=== PATIENT | female | born 1975 | race Caucasian/White ===

== ENCOUNTER → 2016-05-30 | Outpatient (CLI) | payer OTHER ==
[~2016-05-30] MED LIST: ALPR.5T PO; CYCL10TA45 PO; CYCL10TA9 PO; GBPN100C PO; HYDR-3714 PO; HYDR-757 PO; PRD20T PO; [UNRECOGNIZED DRUG - REMARK]
--- NOTE | 2016-06-01 19:06 | Diagnostic Imaging Report ---
Bilateral screening mammogram The current study was also evaluated with a Computer Aided Detection (CAD) system. Indication: Screening. No current complaints stated on the questionnaire. COMPARISON: 05/20/15. FINDINGS: The breasts are composed of heterogeneously dense parenchyma which may decrease mammographic sensitivity. There is a biopsy clip in the central aspect of the left breast. Allowing for technique and positional differences, no suspicious change is seen. IMPRESSION: Dense breasts with no definite change. ACR BI-RADS Category 2: Benign findings. Result letter will be mailed to the patient. Note: At least 10% of breast cancer is not imaged by mammography. Dictated by: Dictated on workstation # [id number]
== END ==
LOC: RAD 09:31
PROVIDERS: ATTEND Internal Medicine Hematology & Oncology
DX: Z12.31 Encounter for screening mammogram for malignant neoplasm of breast (principal)
CPT/HCPCS: 77067

== ENCOUNTER 2016-06-06 12:55 | Outpatient (RCR) | payer OTHER ==
[2016-06-06 13:09] LABS: BASOPHILS % (AUTO) 1 % (0-10); EOSINOPHILS # (AUTO) 0.3 10^3/uL (0.0-0.3); EOSINOPHILS % (AUTO) 4 % (0-10); LYMPHOCYTES % (AUTO) 26 % (12-44); MEAN CORPUSCULAR HEMOGLOBIN 29 PG (25-34); MEAN CORPUSCULAR HGB CONC 33 G/DL (32-36); MEAN CORPUSCULAR VOLUME 87 FL (80-99); MEAN PLATELET VOLUME 9.2 FL (7.4-10.4); MONOCYTES # (AUTO) 0.8 X 10^3 (0.0-1.0); MONOCYTES % (AUTO) 11 % (0-12); NEUTROPHILS # (AUTO) 4.4 X 10^3 (1.8-7.8); NEUTROPHILS % (AUTO) 58 % (42-75); PLATELET COUNT 324 10^3/uL (130-400); RED BLOOD COUNT 4.19 10^6/uL (4.35-5.85); RED CELL DISTRIBUTION WIDTH 13.4 % (10.0-14.5); WHITE BLOOD COUNT 7.5 10^3/uL (4.3-11.0)
[2016-06-06 13:28] LABS: ALANINE AMINOTRANSFERASE 11 U/L (0-55); ALBUMIN 4.1 G/DL (3.2-4.5); ANION GAP 7 MMOL/L (5-14); ASPARTATE AMINO TRANSFERASE 14 U/L (5-34); BILIRUBIN,TOTAL 0.2 MG/DL (0.1-1.0); BLOOD UREA NITROGEN 13 MG/DL (7-18); BUN/CREATININE RATIO 17; CALCIUM 8.6 MG/DL (8.5-10.1); CARBON DIOXIDE 25 MMOL/L (21-32); CHLORIDE 108 MMOL/L (98-107); CREATININE SERUM 0.77 MG/DL (0.60-1.30); GFR ESTIMATED > 60; GLUCOSE 69 MG/DL (70-105); POTASSIUM 3.9 MMOL/L (3.6-5.0); SODIUM 140 MMOL/L (135-145)
== END 2016-09-04 | disposition home or self-care (01) ==
LOC: ONC 12:55
PROVIDERS: ATTEND Internal Medicine Hematology & Oncology
DX: C84.60 Anaplastic large cell lymphoma, ALK-positive, unspecified site (principal); N60.41 Mammary duct ectasia of right breast; G56.90 Unspecified mononeuropathy of unspecified upper limb; F17.210 Nicotine dependence, cigarettes, uncomplicated; M54.2 Cervicalgia; Z80.3 Family history of malignant neoplasm of breast; Z92.3 Personal history of irradiation; Z79.899 Other long term (current) drug therapy
CPT/HCPCS: 36415; 80053; 85025; 86300; 99213

== ENCOUNTER 2016-11-28 08:35 | Outpatient (RCR) | payer OTHER | END 2016-12-02 | disposition home or self-care (01) | PROVIDERS: ATTEND Nurse Practitioner Community Health | DX: M54.16 Radiculopathy, lumbar region (principal) ==

== ENCOUNTER → 2017-06-06 | Outpatient (CLI) | payer OTHER ==
--- NOTE | 2017-06-07 20:58 | Diagnostic Imaging Report ---
INDICATION: Hyperplasia of left breast. At this time there are no current complaints. EXAMINATION: Bilateral breast digital diagnostic mammogram with CAD. The current study was also evaluated with a Computer Aided Detection (CAD) system. COMPARISON: This study was compared to prior exams of 05/30/2016, 05/20/2015 and 05/18/2014. FINDINGS: The fibroglandular tissue in both breasts is heterogeneously dense. This does limit the sensitivity of this exam. Overall, there does not appear to have been any significant change when compared to the prior study. No primary or secondary sign of malignancy is noted. The stereotactic clip in the left breast, seen previously, is again evident. IMPRESSION: There is no radiographic evidence for malignancy. ACR BI-RADS Category 1: Negative. Result letter will be mailed to the patient. Note: At least 10% of breast cancer is not imaged by mammography. Dictated by: Dictated on workstation # [id number]
== END ==
LOC: RAD 13:03
PROVIDERS: ATTEND Internal Medicine Hematology & Oncology
DX: Z12.31 Encounter for screening mammogram for malignant neoplasm of breast (principal); N60.91 Unspecified benign mammary dysplasia of right breast
CPT/HCPCS: 77066

== ENCOUNTER → 2017-06-18 | Outpatient (CLI) | payer SELFPAY ==
--- NOTE | 2017-06-18 15:17 | Diagnostic Imaging Report ---
INDICATION: Thyroid nodule. COMPARISON: 12/24/2015. TECHNIQUE: Multiple Real-time grayscale images were obtained over the thyroid in various projections bilaterally. FINDINGS: The right lobe of the thyroid measures 3.6 x 1.4 x 1.5 cm. The left lobe measures 4.7 x 1.1 x 1.2 cm. There is a small hypoechoic nodule measuring 0.6 x 0.5 cm which is unchanged compared to the prior examination. No other discrete solid or cystic thyroid nodules are appreciated. IMPRESSION: Stable 6 mm hypoechoic nodule in the left lobe of the thyroid, likely a small adenoma. Dictated by: Dictated on workstation # [id number]
== END ==
LOC: RAD 13:58
PROVIDERS: ATTEND Physician Assistant
DX: E04.1 Nontoxic single thyroid nodule (principal)
CPT/HCPCS: 76536

== ENCOUNTER 2017-08-20 13:05 | Outpatient (RCR) | payer SELFPAY ==
[2017-06-07 13:52] LABS: BASOPHILS % (AUTO) 1 % (0-10); EOSINOPHILS # (AUTO) 0.3 10^3/uL (0.0-0.3); EOSINOPHILS % (AUTO) 4 % (0-10); HEMATOCRIT 35 % (35-52); HEMOGLOBIN 11.4 G/DL (11.5-16.0); LYMPHOCYTES % (AUTO) 27 % (12-44); MEAN CORPUSCULAR HEMOGLOBIN 28 PG (25-34); MEAN CORPUSCULAR HGB CONC 33 G/DL (32-36); MEAN CORPUSCULAR VOLUME 84 FL (80-99); MONOCYTES % (AUTO) 14 % (0-12); NEUTROPHILS # (AUTO) 3.9 X 10^3 (1.8-7.8); NEUTROPHILS % (AUTO) 54 % (42-75); PLATELET COUNT 323 10^3/uL (130-400); RED BLOOD COUNT 4.11 10^6/uL (4.35-5.85); RED CELL DISTRIBUTION WIDTH 14.9 % (10.0-14.5); WHITE BLOOD COUNT 7.3 10^3/uL (4.3-11.0)
[2017-06-07 14:12] LABS: ALANINE AMINOTRANSFERASE 32 U/L (0-55); ALBUMIN 4.1 GM/DL (3.2-4.5); ALKALINE PHOSPHATASE 49 U/L (40-136); BILIRUBIN,TOTAL 0.3 MG/DL (0.1-1.0); BUN/CREATININE RATIO 19; CALCIUM 8.8 MG/DL (8.5-10.1); CARBON DIOXIDE 24 MMOL/L (21-32); CHLORIDE 108 MMOL/L (98-107); GFR ESTIMATED > 60; GLUCOSE 78 MG/DL (70-105); SODIUM 140 MMOL/L (135-145); TOTAL PROTEIN 6.9 GM/DL (6.4-8.2)
[2017-08-20 13:41] LABS: BASOPHILS # (AUTO) 0.1 10^3/uL (0.0-0.1); BASOPHILS % (AUTO) 1 % (0-10); EOSINOPHILS # (AUTO) 0.6 10^3/uL (0.0-0.3); EOSINOPHILS % (AUTO) 8 % (0-10); HEMATOCRIT 37 % (35-52); HEMOGLOBIN 12.9 G/DL (11.5-16.0); LYMPHOCYTES % (AUTO) 28 % (12-44); MEAN CORPUSCULAR HEMOGLOBIN 31 PG (25-34); MEAN CORPUSCULAR HGB CONC 35 G/DL (32-36); MEAN CORPUSCULAR VOLUME 87 FL (80-99); MEAN PLATELET VOLUME 9.3 FL (7.4-10.4); MONOCYTES # (AUTO) 0.8 X 10^3 (0.0-1.0); MONOCYTES % (AUTO) 11 % (0-12); NEUTROPHILS # (AUTO) 3.7 X 10^3 (1.8-7.8); NEUTROPHILS % (AUTO) 52 % (42-75); PLATELET COUNT 298 10^3/uL (130-400); RED BLOOD COUNT 4.23 10^6/uL (4.35-5.85); RED CELL DISTRIBUTION WIDTH 14.5 % (10.0-14.5); WHITE BLOOD COUNT 7.2 10^3/uL (4.3-11.0)
[2017-08-20 14:04] LABS: BUN/CREATININE RATIO 16; CARBON DIOXIDE 23 MMOL/L (21-32); CHLORIDE 109 MMOL/L (98-107); CREATININE SERUM 0.77 MG/DL (0.60-1.30); GFR ESTIMATED > 60; GLUCOSE 96 MG/DL (70-105); SODIUM 141 MMOL/L (135-145)
== END 2017-08-23 10:22 | disposition home or self-care (01) ==
LOC: ONC 13:05
PROVIDERS: ATTEND Internal Medicine Hematology & Oncology
DX: C84.60 Anaplastic large cell lymphoma, ALK-positive, unspecified site (principal); D64.9 Anemia, unspecified; N60.41 Mammary duct ectasia of right breast; G56.90 Unspecified mononeuropathy of unspecified upper limb; F17.210 Nicotine dependence, cigarettes, uncomplicated; M54.2 Cervicalgia; Z80.3 Family history of malignant neoplasm of breast; Z92.3 Personal history of irradiation; Z79.899 Other long term (current) drug therapy
CPT/HCPCS: 36415; 80048; 80053; 82728; 83540; 85025; 86300; 99213

== ENCOUNTER 2018-01-15 17:02 | Emergency (ER) | payer OTHER ==
[~2018-01-15] VITALS: Ht 162.6 cm; Wt 58.1 kg
--- OUTSIDE RECORDS SUMMARY | 2018-01-15 17:07 | XMS REPORT | Clinical Summary ---
Author Author [facility] Organization [facility] Address Unknown Phone Unavailable Care Team Providers Care Supervisor [employer] Name Role Phone Lizzette, [facility] PCP Source Comments Some departments are not documenting in the electronic medical record. If you do not see the information that you expected, contact Release of Information in the Health Information Management department at [phone] for further assistance in locating additional records.[facility] Allergies No Known Allergies Current Medications Prescription Sig. Disp. Refills Start End Date Status Date ALPRAZolam (XANAX) 1 mg Take 1 mg by mouth at Active tablet bedtime as needed for Anxiety. buPROPion SR(+) Take 350 mg by mouth Active (WELLBUTRIN-SR) 150 mg twice daily. tablet MULTIVITAMINS WITH Take by mouth daily. Active FLUORIDE (MULTI-VITAMIN PO) HYDROcodone/acetaminophen Take 1 Tab by mouth every Active (NORCO) 7.5/325 mg tablet 6 hours as needed for Pain Active Problems Not on file Family History Medical History Relation Name Comments Other Father suicide Cancer Mother Other Mother Pulmonary Embolism Relation Name Status Comments Father Mother Social History Tobacco Use Types Packs/Day Years Used Date Current Some Day Smoker Comments: 1 pack per week Alcohol Use Drinks/Week oz/Week Comments Yes 1 Standard 0.6 rarely drinks or equivalent Sex Assigned at Date Recorded Not on file Last Filed Vital Signs Vital Sign Reading Time Taken Blood Pressure 122/73 07/18/2016 4:00 PM CDT Pulse 66 07/18/2016 4:00 PM CDT Temperature 36.5 C (97.7 F) 07/18/2016 1:10 PM CDT Respiratory Rate - - Oxygen Saturation 99% 07/18/2016 4:00 PM CDT Inhaled Oxygen - - Concentration Weight 63 kg (139 lb) 02/22/2016 2:16 PM [facility] Height 162.6 cm (5' 4") 02/22/2016 2:16 PM [facility] Body Mass Index 23.86 02/22/2016 2:16 PM [facility] Plan of Treatment Health Maintenance Due Date Last Done Comments PHYSICAL (COMPREHENSIVE) 1981 EXAM PERTUSSIS VACCINE 1985 HIV SCREENING 1989 TETANUS VACCINE 06/04/1991 CERVICAL CANCER SCREENING 2004 BREAST CANCER SCREENING 2014 INFLUENZA VACCINE 10/03/2017 Results Not on filefrom Last 3 Months
--- OUTSIDE RECORDS SUMMARY | 2018-01-15 17:08 | XMS REPORT ---
Author Author MARTIN GUERRERO Organization [facility] Address [address] [place] [address] Care Team Providers Care Home Aid Name Role Phone MARTIN GUERRERO Unavailable PROBLEMS Type Condition ICD9-CM Code [id number] Code Onset Dates Condition Status SNOMED Code Problem Carpal tunnel syndrome G56.00 Active 16640882 Problem Other inflammatory polyneuropathies G61.89 Active 257531662 Problem Acquired hypothyroidism E03.9 Active 559420444 Problem Malignant lymphoma of lymph nodes C85.90 Active 128779653 Problem Other hyperlipidemia E78.4 Active 80519712 Problem Thyroid nodule E04.1 Active 007354586 Problem Endometrial hyperplasia N85.00 Active 330712537 Problem Low back pain M54.5 Active 837041278 Problem Lumbago with sciatica, left side M54.42 Active 694862449 Problem Pain in left knee M25.562 Active 90531334 ALLERGIES No Information ENCOUNTERS Encounter Location Date Diagnosis [place] [id number] [place] [address] 04724- 1668 Aug, Thyroid nodule E04.1 [place] [id number] [place] [address] 28843- 0946 Aug, [place] [id number] [place] [address] 79630- 0869 July, Elevated TSH R94.6 [place] [id number] [place] [address] 75378- 7056 Jun, Thyroid nodule E04.1 [place] [id number] [place] [address] 44658- 5229 Jun, Well woman exam (no gynecological exam) Z00.00 ; Thyroid nodule E04.1 ; Weight gain R63.5 ; Other hyperlipidemia E78.4 and Excessive cerumen in both ear canals H61.23 [facility] [id number] [place] [address] 80779- 1994 Jan, Low back pain M54.5 [facility] [id number] [place] [address] 09678- 1565 Jan, [facility] [id number] [place] [address] 58665 -5146 Nov, Abscess L02.91 [facility] [id number] [place] [address] 14809- 5413 Nov, Low back pain M54.5 [facility] [address] 21131- 5968 Oct, Lumbago with sciatica, left side M54.42 [facility] [id number] [place] [address] [id number] Oct, [facility] [address] 30343- 8579 Oct, Carpal tunnel syndrome G56.00 [facility] [address] [id number] Sep, Dental examination Z01.20 [facility] [id number] [place] [address] 52243- 3959 Aug, Carpal tunnel syndrome G56.00 [facility] [id number] [place] [address] 79671- 0893 July, [facility] [id number] [place] [address] 96729- 6642 July, [facility] [id number] [place] [address] 84644- 7076 July, Carpal tunnel syndrome G56.00 [facility] [id number] [place] [address] 80614- 3810 May, Carpal tunnel syndrome G56.00 and Cervical neuritis M54.12 [place] [address] [facility] [id number] [address] 6949 May, [facility] [id number] [place] [address] 19647- 2706 Mar, [facility] [address] [id number] [address]- 8886 Feb, [facility] [id number] [place] [address] 60994- 4646 Feb, [facility] [address] [facility] [id number] [place] [address] 23538- 9949 Feb, Low back pain M54.5 and Pain in left knee M25.562 [facility] [address] [address]- 4756 Feb, Low back pain M54.5 [facility] [id number] [place] [address] 03076- 5686 Jan, Low back pain M54.5 [facility] [id number] [place] [address] 22095- 4571 Jan, Low back pain M54.5 [facility] [id number] [place] [address] 89752- 8056 Jan, [facility] [address] [address]- 3199 Jan, [facility] [address] [address]- 0737 Jan, [facility] [address] [address]- 5249 Dec, Throat mass R22.1 [facility] [address] [address]- 7613 Dec, Throat mass R22.1 [facility] [address] [address]- 2973 Dec, Mass in neck R22.1 [facility] [address] [address]- 6687 Dec, [facility] [id number] [place] [address] 26396- 2725 Dec, Cough R05 and Encounter for immunization Z23 [facility] [id number] [place] [address] 72260- 4565 Nov, Upper respiratory tract infection, unspecified type J06.9 [facility] [id number] [place] [address] 76347- 5702 Nov, [facility] [id number] [place] [address] 36074- 7208 Nov, [facility] [id number] [place] [address] 86956- 5346 Nov, Chondromalacia, left knee M94.262 [facility] [id number] [place] [address] 89005- 0778 Oct, [facility] [id number] [place] [address] 63158- 1293 Oct, [facility] [id number] [place] [address] 50405- 8530 Oct, Chondromalacia, left knee M94.262 [facility] [address] [address]- 3296 Sep, [facility] [id number] [address]- 7174 Aug, [facility] [address] [address]- 4407 Aug, [facility] [address] [address]- 3456 July, Chondromalacia, left knee M94.262 [facility] [id number] [place] [address] 06838- 0526 July, [facility] [id number] [place] [address] 75605- 1260 July, [facility] [id number] [place] [address] 11362- 6510 Jun, Abscess L02.91 and Vaginal bleeding between periods N92.0 [facility] [id number] [place] [address] 89109- 6291 Jun, [facility] [id number] [place] [address] 29967- 1683 Jun, Pain in left knee M25.562 and Other chronic pain G89.29 [facility] [id number] [place] [address] 06873- 5593 Jun, Pain in left knee M25.562 and Other chronic pain G89.29 [facility] [id number] [place] [address] 84471- 5337 Jun, [facility] [id number] [place] [address] 93987- 5059 Jun, Low back pain M54.5 [facility] [id number] [place] [address] 53816- 0514 Jun, Pain in right knee M25.561 [facility] [id number] [place] [address] 01465- 8146 Jun, [facility] [id number] [place] [address] 86459- 3918 Jun, Low back pain M54.5 [facility] [id number] [place] [address] 03170- 4129 May, Cervical neuritis M54.12 ; Thoracic neuritis M54.14 and Pain in right knee M25.561 [facility] [id number] [place] [address] 89548- 3204 May, shelter use of drug Z79.899 [facility] [id number] [place] [address] 02556- 9740 04 Apr, 2015 Well woman exam Z01.419 and Thyroid enlarged E04.9 [place] [id number] [place] [address] 33633- 5010 03 Apr, 2015 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 ; Low back pain M54.5 and Endometrial hyperplasia N85.00 [place] [address] 58003- 7959 Mar, Well woman exam Z01.419 ; Encounter for screening for malignant neoplasm of cervix Z12.4 ; History of breast cancer Z85.3 ; Family history of breast cancer Z80.3 ; Tobacco use Z72.0 ; History of abnormal cervical Pap smear Z87.898 ; Other fatigue R53.83 ; Breast tenderness N64.4 ; Chronic migraine G43.709 ; Anxiety F41.9 ; Depression, unspecified depression type F32.9 ; Thyroid enlarged E04.9 ; Routine screening for STI (sexually transmitted infection) Z11.3 ; Family history of ovarian cancer Z80.41 and Dense breast tissue R92.2 [place] [id number] [place] [address] 89868- 9244 Mar, Acute sinusitis, recurrence not specified, unspecified location J01.90 [place] [id number] [place] [address] 94130- 2285 Mar, [place] [id number] [place] [address] 71772- 7336 Feb, [place] [id number] [place] [address] 78445- 7378 Dec, [place] [address] 50465- 7367 Nov, [place] [id number] [place] [address] 15969- 2496 Nov, Sinusitis 473.9 [place] [address] 90634- 6413 Oct, [facility] [address] [address]- 6778 Sep, Lumbago 724.2 [facility] [id number] [place] [address] 51485- 1353 Sep, Upper respiratory infection 465.9 [facility] [id number] [place] [address] 29461- 7567 Aug, Lumbago 724.2 [facility] [id number] [place] [address] 80891- 8115 Aug, Abscess 682.9 [facility] [id number] [place] [address] 87787- 3739 Aug, Abscess and cellulitis 682.9 [facility] [id number] [place] [address] 07046- 6253 Aug, Insect bite of buttock, infected 911.9 [facility] [id number] [place] [address] 53347- 0793 July, Lumbago 724.2 [facility] [id number] [place] [address] 52619- 7262 July, [facility] [address] [address]- 1808 July, Routine gynecological examination V72.31 ; Screen for STD ( sexually transmitted disease) V74.5 ; Routine physicl lab exam V72.62 and Vulvar abscess 616.4 [facility] [address] [address]- 4917 July, [facility] [id number] [place] [address] 01718- 2930 Jun, [facility] [address] [address]- 2373 Jun, [facility] [id number] [place] [address] 46361- 6010 May, [facility] [place] [facility] [address] [id number] [place] [address]- 5457 May, [facility] [place] [facility] [address] [id number] [place] [address]- 4804 May, [facility] [place] [facility] [address] [facility] [id number] [place] [address]- 3260 May, [facility] [place] [facility] [address] [id number] [place] [address]- 2327 Apr, 2014 [facility] [place] [facility] [address] [id number] [place] [address]- 2421 Apr, 2014 [facility] [place] [facility] [address] [facility] [id number] [place] [address]- 5649 Apr, 2014 [facility] [place] [facility] [address] [facility] [id number] [place] [address]- 2259 Apr, 2014 [facility] [place] [facility] [address] [facility] [id number] [place] [address]- 4328 Apr, 2014 [facility] [place] [facility] [address] [facility] [id number] [place] [address]- 8930 05 Apr, 2014 [facility] [place] [facility] [address] [facility] [id number] [place] [address]- 1103 Apr, [facility] [place] [facility] [address] [facility] [id number] [place] [address]- 1957 Apr, 2014 [facility] [place] [facility] [address] [facility] [id number] [place] [address]- 3125 Apr, 2014 [facility] [place] [facility] [address] [id number] [place] [address]- 7846 Apr, 2014 [facility] [place] [facility] [address] [facility] [id number] [place] 5220 Mar, [facility] [place] [facility] [address] [facility] [id number] [place] [address]- 8916 Mar, [facility] [place] [facility] [address] [id number] [place] [address]- 7421 17 Feb, 2014 [facility] [place] [facility] [address] [id number] [place] [address]- 9132 17 Feb, 2014 [facility] [place] [facility] [address] [id number] [place] [address]- 3542 15 Feb, 2014 [facility] [place] [facility] [address] [id number] [place] [address]- 9172 15 Feb, 2014 [facility] [place] [facility] [address] [id number] [place] [address]- 9196 Feb, [facility] [place] [facility] [address] [id number] [place] [address]- 4154 Feb, [facility] [place] [facility] [address] [id number] [place] [address]- 6193 Jan, [facility] [place] [facility] [address] [id number] [place] [address]- 1569 Jan, [facility] [place] [facility] [address] [id number] [place] [address]- 6634 Jan, [facility] [place] [facility] [address] [id number] [place] [address]- 2424 Jan, [facility] [place] [facility] [address] [id number] [place] [address]- 5639 Jan, [facility] [place] [facility] [address] [id number] [place] [address]- 2275 Jan, [facility] [place] [facility] [address] [id number] [place] [address]- 6550 Dec, [facility] [place] [facility] [address] [id number] [place] [address]- 4664 Dec, [facility] [place] [facility] [address] [id number] [place] [address]- 5186 Dec, [facility] [place] [facility] [address] [id number] [address]- 8602 Dec, [facility] [place] [facility] [address] [id number] [place] [address]- 9495 15 Dec, 2013 [facility] [place] [facility] [address] [id number] [place] [address]- 7370 15 Dec, 2013 [facility] [place] [facility] [address] [id number] [place] [address]- 0148 Dec, [facility] [place] [facility] [address] [id number] [place] [address]- 6461 Dec, [facility] [place] [facility] [address] [id number] [place] [address]- 5731 Nov, [facility] [place] [facility] [address] [id number] [place] [address]- 2944 Nov, [facility] [place] [facility] [address] [id number] [place] [address]- 7964 Nov, [facility] [place] [facility] [address] [id number] [place] [address]- 2437 15 Nov, 2013 [facility] [place] [facility] [address] [id number] [place] [address]- 8659 Nov, [facility] [place] [facility] [address] [id number] [place] [address]- 8953 Oct, [facility] [place] [facility] [address] [id number] [place] [address]- 7544 Oct, [facility] [place] [facility] [address] [id number] [place] [address]- 3626 Oct, [facility] [place] [facility] [address] [id number] [place] [address]- 7173 Oct, [facility] [place] [facility] [address] [id number] [place] [address]- 7447 Oct, [facility] [place] [facility] [address] [id number] [place] [address]- 1699 Sep, [facility] [place] [facility] [address] [id number] [place] [address]- 2551 Sep, [facility] [place] [facility] [address] [id number] [place] [address]- 2700 Sep, [facility] [place] [facility] [address] [id number] [place] [address]- 4456 Sep, [facility] [place] [facility] [address] [id number] [place] [address]- 0017 Sep, [facility] [place] [facility] [address] [id number] [place] [address]- 6462 Sep, [facility] [place] [facility] [address] [id number] [place] [address]- 5766 Aug, [facility] [place] [facility] [address] [id number] [place] [address]- 4416 Aug, [facility] [place] [facility] [address] [id number] [place] [address]- 1348 Aug, [facility] [place] [facility] [address] [id number] [place] [address]- 4654 Aug, [facility] [place] [facility] [address] [id number] [place] [address]- 5896 Aug, [facility] [place] [facility] [address] [id number] [place] [address]- 3589 Aug, [facility] [place] [facility] [address] [id number] [place] [address]- 6125 Jun, [facility] [place] [facility] [address] [id number] [place] [address]- 6623 Jun, [facility] [place] [facility] [address] [id number] [place] [address]- 1861 May, [facility] [place] [facility] [address] [id number] [place] [address]- 2546 May, [facility] [place] [facility] [address] [id number] [place] [address]- 1050 Apr, [facility] [place] [facility] [address] [id number] [place] [address]- 4369 Apr, [facility] [place] [facility] [address] [id number] [place] [address]- 7114 Apr, [facility] [place] [facility] [address] [id number] [place] [address]- 7412 Apr, [facility] [place] [facility] [address] [id number] [place] [address]- 6384 Mar, [facility] [place] [facility] [address] [id number] [place] [address]- 8689 Mar, [facility] [place] [facility] [address] [id number] [place] [address]- 9846 Mar, [facility] [place] [facility] [address] [id number] [place] [address]- 2917 Mar, [facility] [place] [facility] [address] [id number] [place] [address]- 5390 Mar, [facility] [place] [facility] [address] [id number] [place] [address]- 9541 Mar, [facility] [place] [facility] [address] [id number] [place] [address]- 7877 Mar, [facility] [place] [facility] [address] [id number] [address]- 6583 Mar, [facility] [place] [facility] [address] [id number] [place] [address]- 3533 Mar, [facility] [place] [facility] [address] [id number] [place] [address]- 1516 Mar, [facility] [place] [facility] [address] [id number] [place] [address]- 7682 Dec, [facility] [place] [facility] [address] [id number] [place] [address]- 9054 Dec, [facility] [place] [facility] [address] [id number] [place] [address]- 8380 Dec, [facility] [address] [id number] [place] [address]- 0157 Dec, [facility] [address] [id number] [place] [address]- 6968 Dec, [facility] [address] [id number] [place] [address]- 6660 Dec, [facility] [address] [id number] [place] [address]- 0820 Nov, [facility] [address] [id number] [place] [address]- 7398 Jun, [facility] [address] [id number] [place] [address]- 1562 Jun, [facility] [address] [id number] [place] [address]- 2372 Jun, [facility] [address] [id number] [place] [address]- 9175 May, [facility] [address] [id number] [place] [address] May, [facility] [address] [id number] [place] [address] Apr, [facility] [address] [id number] [place] [address] Mar, [facility] [address] [id number] [place] [address] Mar, [facility] [address] [id number] [place] [address] Mar, [facility] [address] [id number] [place] [address] Mar, [facility] [address] [id number] [place] [address] Mar, [facility] [address] [id number] [address] Mar, [facility] [id number] [address] Mar, [facility] [address] [id number] [address] Mar, [facility] [id number] [address] Mar, [facility] [id number] [address] Mar, [facility] [id number] [address] Feb, [facility] [id number] [address] Feb, [facility] [id number] [place] [address] Feb, [facility] [id number] [address] Mar, [facility] [id number] [address] Feb, [facility] [address] [id number] [address] Feb, IMMUNIZATIONS No Known Immunizations SOCIAL HISTORY Never Assessed REASON FOR VISIT Lab (walk-in) PLAN OF CARE VITAL SIGNS MEDICATIONS Unknown Medications RESULTS No Results PROCEDURES Procedure Date Ordered Result Body Site ASSAY THYROID STIM HORMONE August 17, 2017 INSTRUCTIONS MEDICATIONS ADMINISTERED No Known Medications MEDICAL (GENERAL) HISTORY Type Description Date Medical History chronic pain Medical History migraine headaches Medical History neuropathy in hands Medical History depression 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
--- OUTSIDE RECORDS SUMMARY | 2018-01-15 17:08 | XMS REPORT ---
Author Author MARTIN GUERRERO Organization [facility] Address [address] [place] [address] Care Team Providers Care Lockstitch Coat Joiner Name Role Phone MARTIN GUERRERO Unavailable PROBLEMS Type Condition ICD9-CM Code UCX49-NP Code Onset Dates Condition Status SNOMED Code Problem Carpal tunnel syndrome G56.00 Active 91847339 Problem Other inflammatory polyneuropathies G61.89 Active 010602848 Problem Acquired hypothyroidism E03.9 Active 932107958 Problem Malignant lymphoma of lymph nodes C85.90 Active 956017411 Problem Other hyperlipidemia E78.4 Active 80135925 Problem Thyroid nodule E04.1 Active 299550496 Problem Endometrial hyperplasia N85.00 Active 732718410 Problem Low back pain M54.5 Active 048386783 Problem Lumbago with sciatica, left side M54.42 Active 181524993 Problem Pain in left knee M25.562 Active 48577261 ALLERGIES No Information ENCOUNTERS Encounter Location Date Diagnosis [place] [id number] [place] [address] 68249- 3328 Aug, Thyroid nodule E04.1 [place] [id number] [place] [address] 29829- 1529 Aug, [place] [id number] [place] [address] 94374- 9464 July, Elevated TSH R94.6 [place] [id number] [place] [address] 77512- 3553 Jun, Thyroid nodule E04.1 [place] [id number] [place] [address] 22354- 0007 Jun, Well woman exam (no gynecological exam) Z00.00 ; Thyroid nodule E04.1 ; Weight gain R63.5 ; Other hyperlipidemia E78.4 and Excessive cerumen in both ear canals H61.23 [facility] [id number] [place] [address] 73648- 7282 Jan, Low back pain M54.5 [facility] [id number] [place] [address] 72708- 6714 Jan, [facility] [id number] [place] [address] 53033 -1142 Nov, Abscess L02.91 [facility] [id number] [place] [address] 76507- 6638 Nov, Low back pain M54.5 [facility] [address] 12261- 8779 Oct, Lumbago with sciatica, left side M54.42 [facility] [id number] [place] [address] [id number] Oct, [facility] [address] 12780- 7083 Oct, Carpal tunnel syndrome G56.00 [facility] [address] [id number] Sep, Dental examination Z01.20 [facility] [id number] [place] [address] 14428- 1025 Aug, Carpal tunnel syndrome G56.00 [facility] [id number] [place] [address] 15545- 2227 July, [facility] [id number] [place] [address] 31843- 0623 July, [facility] [id number] [place] [address] 38979- 2085 July, Carpal tunnel syndrome G56.00 [facility] [id number] [place] [address] 19028- 2243 May, Carpal tunnel syndrome G56.00 and Cervical neuritis M54.12 [place] [address] [facility] [id number] [address] 0534 May, [facility] [id number] [place] [address] 37604- 6746 Mar, [facility] [id number] [address]- 4486 Feb, [facility] [id number] [place] [address] 49624- 9036 Feb, [facility] [address] [facility] [id number] [place] [address] 75747- 4961 Feb, Low back pain M54.5 and Pain in left knee M25.562 [facility] [address] [address]- 5296 Feb, Low back pain M54.5 [facility] [id number] [place] [address] 08375- 1236 Jan, Low back pain M54.5 [facility] [id number] [place] [address] 59813- 1057 Jan, Low back pain M54.5 [facility] [id number] [place] [address] 20487- 6805 Jan, [facility] [address] [address]- 7200 Jan, [facility] [address] [address]- 2264 Jan, [facility] [address] [address]- 6325 Dec, Throat mass R22.1 [facility] [address] [address]- 5354 Dec, Throat mass R22.1 [facility] [address], [place] [address]- 3219 Dec, Mass in neck R22.1 [facility] [address], [place] [address]- 4584 Dec, [facility] [id number] [place] [address] 86535- 4145 Dec, Cough R05 and Encounter for immunization Z23 [facility] [id number] [place] [address] 50268- 6175 Nov, Upper respiratory tract infection, unspecified type J06.9 [facility] [id number] [place] [address] 78961- 2123 Nov, [facility] [id number] [place] [address] 78583- 0673 Nov, [facility] [id number] [place] [address] 27847- 9082 Nov, Chondromalacia, left knee M94.262 [facility] [id number] [place] [address] 19590- 5982 Oct, [facility] [id number] [place] [address] 95019- 4642 Oct, [facility] [id number] [place] [address] 01882- 8627 Oct, Chondromalacia, left knee M94.262 [facility] [address], [place] [address]- 9338 Sep, [facility] [id number] [address]- 7828 Aug, [facility] [address], [place] [address]- 8359 Aug, [facility] [address], [place] [address]- 3009 July, Chondromalacia, left knee M94.262 [facility] [id number] [place] [address] 69361- 9472 July, [facility] [id number] [place] [address] 87946- 0647 July, [facility] [id number] [place] [address] 41427- 3852 Jun, Abscess L02.91 and Vaginal bleeding between periods N92.0 [facility] [id number] [place] [address] 54766- 1025 Jun, [facility] [id number] [place] [address] 83499- 1498 Jun, Pain in left knee M25.562 and Other chronic pain G89.29 [facility] [id number] [place] [address] 79137- 0262 Jun, Pain in left knee M25.562 and Other chronic pain G89.29 [facility] [id number] [place] [address] 54627- 2469 Jun, [facility] [id number] [place] [address] 00461- 8439 Jun, Low back pain M54.5 [facility] [id number] [place] [address] 65661- 1457 Jun, Pain in right knee M25.561 [facility] [id number] [place] [address] 56024- 1028 Jun, [facility] [id number] [place] [address] 62141- 3534 Jun, Low back pain M54.5 [facility] [id number] [place] [address] 75844- 8662 May, Cervical neuritis M54.12 ; Thoracic neuritis M54.14 and Pain in right knee M25.561 [facility] [id number] [place] [address] 77493- 5814 May, FCI use of drug Z79.899 [facility] [id number] [place] [address] 00783- 1728 04 Apr, 2015 Well woman exam Z01.419 and Thyroid enlarged E04.9 [place] [id number] [place] [address] 79176- 6795 03 Apr, 2015 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 ; Low back pain M54.5 and Endometrial hyperplasia N85.00 [place] [address] 41757- 2583 Mar, Well woman exam Z01.419 ; Encounter [...] cancer Z80.41 and Dense breast tissue R92.2 [place] [id number] [place] [address] 04328- 6925 Mar, Acute sinusitis, recurrence not specified, unspecified location J01.90 [place] [id number] [place] [address] 42248- 4284 Mar, [place] [id number] [place] [address] 61519- 3039 Feb, [place] [id number] [place] [address] 08009- 6916 Dec, [place] [address] 36477- 7249 Nov, [place] [id number] [place] [address] 62067- 3775 Nov, Sinusitis 473.9 [place] [address] 06686- 6173 Oct, [facility] [address] [address]- 9738 Sep, Lumbago 724.2 [facility] [id number] [place] [address] 87123- 4047 Sep, Upper respiratory infection 465.9 [facility] [id number] [place] [address] 14034- 7495 Aug, Lumbago 724.2 [facility] [id number] [place] [address] 59510- 2303 Aug, Abscess 682.9 [facility] [id number] [place] [address] 42060- 9641 Aug, Abscess and cellulitis 682.9 [facility] [id number] [place] [address] 38856- 2445 Aug, Insect bite of buttock, infected 911.9 [facility] [id number] [place] [address] 26232- 9183 July, Lumbago 724.2 [facility] [id number] [place] [address] 15505- 3952 July, [facility] [address] [address]- 8301 July, Routine gynecological examination V72.31 ; Screen for STD ( sexually transmitted disease) V74.5 ; Routine physicl lab exam V72.62 and Vulvar abscess 616.4 [facility] [address] [address]- 4835 July, [facility] [id number] [place] [address] 80477- 8547 Jun, [facility] [address] [address]- 8973 Jun, [facility] [id number] [place] [address] 66607- 5671 May, [facility] [place] [facility] [address] [id number] [place] [address]- 2802 May, [facility] [place] [facility] [address] [id number] [place] [address]- 5906 May, [facility] [place] [facility] [address] [facility] [id number] [place] [address]- 1847 May, [facility] [place] [facility] [address] [id number] [place] [address]- 2490 Apr, 2014 [facility] [place] [facility] [address] [id number] [place] [address]- 9525 Apr, 2014 [facility] [place] [facility] [address] [facility] [id number] [place] [address]- 2327 Apr, 2014 [facility] [place] [facility] [address] [facility] [id number] [place] [address]- 4005 Apr, 2014 [facility] [place] [facility] [address] [facility] [id number] [place] [address]- 8371 Apr, 2014 [facility] [place] [facility] [address] [facility] [id number] [place] [address]- 2707 05 Apr, 2014 [facility] [place] [facility] [address] [facility] [id number] [place] [address]- 4441 Apr, [facility] [place] [facility] [address] [facility] [id number] [place] [address]- 5945 Apr, 2014 [facility] [place] [facility] [address] [facility] [id number] [place] [address]- 1964 Apr, 2014 [facility] [place] [facility] [address] [id number] [place] [address]- 1908 Apr, 2014 [facility] [place] [facility] [address] [facility] [id number] [place] 3381 Mar, [facility] [place] [facility] [address] [facility] [id number] [place] [address]- 9075 Mar, [facility] [place] [facility] [address] [id number] [place] [address]- 7764 17 Feb, 2014 [facility] [place] [facility] [address] [id number] [place] [address]- 5626 17 Feb, 2014 [facility] [place] [facility] [address] [id number] [place] [address]- 4670 15 Feb, 2014 [facility] [place] [facility] [address] [id number] [place] [address]- 0504 15 Feb, 2014 [facility] [place] [facility] [address] [id number] [place] [address]- 3168 Feb, [facility] [place] [facility] [address] [id number] [place] [address]- 4317 Feb, [facility] [place] [facility] [address] [id number] [place] [address]- 7465 Jan, [facility] [place] [facility] [address] [id number] [place] [address]- 3479 Jan, [facility] [place] [facility] [address] [id number] [place] [address]- 3101 Jan, [facility] [place] [facility] [address] [id number] [place] [address]- 7984 Jan, [facility] [place] [facility] [address] [id number] [place] [address]- 8689 Jan, [facility] [place] [facility] [address] [id number] [place] [address]- 1620 Jan, [facility] [place] [facility] [address] [id number] [place] [address]- 1149 Dec, [facility] [place] [facility] [address] [id number] [place] [address]- 9760 Dec, [facility] [place] [facility] [address] [id number] [place] [address]- 2154 Dec, [facility] [place] [facility] [address] [id number], [place] [address]- 0925 Dec, [facility] [place] [facility] [address] [id number] [place] [address]- 3895 15 Dec, 2013 [facility] [place] [facility] [address] [id number] [place] [address]- 2639 15 Dec, 2013 [facility] [place] [facility] [address] [id number] [place] [address]- 9330 Dec, [facility] [place] [facility] [address] [id number] [place] [address]- 5404 Dec, [facility] [place] [facility] [address] [id number] [place] [address]- 4136 Nov, [facility] [place] [facility] [address] [id number] [place] [address]- 7610 Nov, [facility] [place] [facility] [address] [id number] [place] [address]- 3449 Nov, [facility] [place] [facility] [address] [id number] [place] [address]- 6788 15 Nov, 2013 [facility] [place] [facility] [address] [id number] [place] [address]- 8625 Nov, [facility] [place] [facility] [address] [id number] [place] [address]- 9169 Oct, [facility] [place] [facility] [address] [id number] [place] [address]- 3306 Oct, [facility] [place] [facility] [address] [id number] [place] [address]- 4209 Oct, [facility] [place] [facility] [address] [id number] [place] [address]- 3758 Oct, [facility] [place] [facility] [address] [id number] [place] [address]- 6722 Oct, [facility] [place] [facility] [address] [id number] [place] [address]- 8437 Sep, [facility] [place] [facility] [address] [id number] [place] [address]- 5035 Sep, [facility] [place] [facility] [address] [id number] [place] [address]- 6542 Sep, [facility] [place] [facility] [address] [id number] [place] [address]- 1556 Sep, [facility] [place] [facility] [address] [id number] [place] [address]- 5636 Sep, [facility] [place] [facility] [address] [id number] [place] [address]- 8908 Sep, [facility] [place] [facility] [address] [id number] [place] [address]- 3987 Aug, [facility] [place] [facility] [address] [id number] [place] [address]- 1727 Aug, [facility] [place] [facility] [address] [id number] [place] [address]- 2556 Aug, [facility] [place] [facility] [address] [id number] [place] [address]- 7587 Aug, [facility] [place] [facility] [address] [id number] [place] [address]- 1442 Aug, [facility] [place] [facility] [address] [id number] [place] [address]- 9679 Aug, [facility] [place] [facility] [address] [id number] [place] [address]- 2160 Jun, [facility] [place] [facility] [address] [id number] [place] [address]- 3304 Jun, [facility] [place] [facility] [address] [id number] [place] [address]- 6172 May, [facility] [place] [facility] [address] [id number] [place] [address]- 2546 May, [facility] [place] [facility] [address] [id number] [place] [address]- 9487 Apr, [facility] [place] [facility] [address] [id number] [place] [address]- 2047 Apr, [facility] [place] [facility] [address] [id number] [place] [address]- 9600 Apr, [facility] [place] [facility] [address] [id number] [place] [address]- 4497 Apr, [facility] [place] [facility] [address] [id number] [place] [address]- 7695 Mar, [facility] [place] [facility] [address] [id number] [place] [address]- 7715 Mar, [facility] [place] [facility] [address] [id number] [place] [address]- 9436 Mar, [facility] [place] [facility] [address] [id number] [place] [address]- 0268 Mar, [facility] [place] [facility] [address] [id number] [place] [address]- 7711 Mar, [facility] [place] [facility] [address] [id number] [place] [address]- 2489 Mar, [facility] [place] [facility] [address] [id number] [place] [address]- 0126 Mar, [facility] [place] [facility] [address] [id number], [place] [address]- 2993 Mar, [facility] [place] [facility] [address] [id number], [place] [address]- 3623 Mar, [facility] [place] [facility] [address] [id number] [place] [address]- 3201 Mar, [facility] [place] [facility] [address] [id number] [place] [address]- 3866 Dec, [facility] [place] [facility] [address] [id number] [place] [address]- 3520 Dec, [facility] [place] [facility] [address] [id number] [place] [address]- 2606 Dec, [facility] [address] [id number] [place] [address]- 1655 Dec, [facility] [address] [id number] [place] [address]- 7526 Dec, [facility] [address] [id number] [place] [address]- 5769 Dec, [facility] [address] [id number] [place] [address]- 8711 Nov, [facility] [address] [id number] [place] [address]- 5712 Jun, [facility] [address] [id number] [place] [address]- 9980 Jun, [facility] [address] [id number] [place] [address]- 3568 Jun, [facility] [address] [id number] [place] [address]- 8906 May, [facility] [address] [id number] [place] [address]- 1367 May, [facility] [address] [id number] [place] [address]- 5074 Apr, [facility] [address] [id number] [place] [address]- 6314 Mar, [facility] [address] [id number] [place] [address]- 7849 Mar, [facility] [address] [id number] [place] [address]- 6927 Mar, [facility] [address] [id number] [place] [address]- 6564 Mar, [facility] [address] [id number] [place] [address]- 5284 Mar, [facility] [address] [facility] [id number], [place] [address] Mar, [facility] [address] [facility] [id number], [place] [address] Mar, [facility] [address] [facility] [id number], [place] [address] Mar, [facility] [address] [facility] [id number], [place] [address] Mar, [facility] [address] [facility] [id number], [place] [address] Mar, [facility] [address] [facility] [id number], [place] [address] Feb, [facility] [address] [facility] [id number], [place] [address] Feb, [facility] [id number], [place] [address] Feb, [facility] [address] [facility] [id number], [place] [address] Mar, [facility] [address] [id number], [place] [address] Feb, [facility] [address] [id number], [place] [address] Feb, IMMUNIZATIONS No Known Immunizations SOCIAL HISTORY Never Assessed REASON FOR VISIT Medication question PLAN OF CARE VITAL SIGNS MEDICATIONS Unknown Medications RESULTS No Results PROCEDURES No Known procedures INSTRUCTIONS MEDICATIONS ADMINISTERED No Known Medications MEDICAL [...]
--- OUTSIDE RECORDS SUMMARY | 2018-01-15 17:09 | XMS REPORT ---
Author Author JM Madison Organization [facility] Address [address] [place] [address] Care Team Providers Care Greige Goods Examiner Name Role Phone JM Madison Unavailable PROBLEMS Type Condition ICD9-CM Code [id number] Code Onset Dates Condition Status SNOMED Code Problem Carpal tunnel syndrome G56.00 Active 47537320 Problem Other inflammatory polyneuropathies G61.89 Active 081185016 Problem Acquired hypothyroidism E03.9 Active 768772827 Problem Malignant lymphoma of lymph nodes C85.90 Active 765506581 Problem Other hyperlipidemia E78.4 Active 38851050 Problem Thyroid nodule E04.1 Active 441235404 Problem Endometrial hyperplasia N85.00 Active 360753880 Problem Low back pain M54.5 Active 712903501 Problem Lumbago with sciatica, left side M54.42 Active 174589621 Problem Pain in left knee M25.562 Active 66359820 ALLERGIES No Information ENCOUNTERS Encounter Location Date Diagnosis [place] [id number] [place] [address] 09368- 2336 15 Aug, 2017 Thyroid nodule E04.1 [place] [address] [place] [id number] [place] [address] 27277- 1020 Aug, [place] [address] [place] [id number] [place] [address] 84087- 8530 July, Elevated TSH R94.6 [place] [address] [place] [id number] [place] [address] 96331- 3221 Jun, Thyroid nodule E04.1 [place] [address] [id number] [place] [address] 42490- 4415 Jun, Well woman exam (no gynecological exam) Z00.00 ; Thyroid nodule E04.1 ; Weight gain R63.5 ; Other hyperlipidemia E78.4 and Excessive cerumen in both ear canals H61.23 [facility] [id number] [place] [address] 96460- 4866 Jan, Low back pain M54.5 [facility] [id number] [place] [address] 17882- 1574 Jan, [facility] [address] [address] -[address]347 Nov, Abscess L02.91 [facility] [address] [id number] [place] [address] 54563- 5734 Nov, Low back pain M54.5 [facility] [address] 97236- 6717 Oct, Lumbago with sciatica, left side M54.42 [facility] [address] [id number] Oct, [facility] [id number] [place] [address] 54176- 6864 Oct, Carpal tunnel syndrome G56.00 [facility] [address] [id number] Sep, Dental examination Z01.20 [facility] [id number] [place] [address] 31391- 4114 Aug, Carpal tunnel syndrome G56.00 [facility] [id number] [place] [address] 61655- 2682 July, [facility] [id number] [place] [address] 08523- 0817 July, [facility] [address] 93676- 8690 July, Carpal tunnel syndrome G56.00 [facility] [id number] [place] [address] 47063- 8821 May, Carpal tunnel syndrome G56.00 and Cervical neuritis M54.12 [facility] [address] [address] 5633 May, [facility] [address] [id number] [place] [address] 72833- 6904 Mar, [facility] [id number] [place] [address] 36693- 6749 Feb, [facility] [id number] [place] [address] 65386- 1361 Feb, [facility] [id number] [place] [address] 70528- 9424 Feb, Low back pain M54.5 and Pain in left knee M25.562 [facility] [id number] [place] [address] 58785- 7993 Feb, Low back pain M54.5 [facility] [id number] [place] [address] 01208- 1116 Jan, Low back pain M54.5 [facility] [id number] [place] [address] 54898- 9893 Jan, Low back pain M54.5 [facility] [id number] [place] [address] 36106- 8411 Jan, [facility] [id number] [place] [address] 40967- 0260 Jan, [facility] [address] [place] [address] 97369- 2549 Jan, [facility] [id number] [place] [address] 72082- 1660 Dec, Throat mass R22.1 [facility] [address] [place] [address] 65312- 2760 Dec, Throat mass R22.1 [facility] [id number] [place] [address] 70416- 4143 Dec, Mass in neck R22.1 [facility] [id number] [place] [address] 80255- 0636 Dec, [facility] [id number] [place] [address] 84708- 8943 Dec, Cough R05 and Encounter for immunization Z23 [facility] [id number] [place] [address] 05860- 9758 Nov, Upper respiratory tract infection, unspecified type J06.9 [facility] [id number] [place] [address] 57905- 0057 Nov, [facility] [id number] [place] [address] 05090- 6448 Nov, [facility] [id number] [place] [address] 37825- 6326 Nov, Chondromalacia, left knee M94.262 [facility] [id number] [place] [address] 40114- 9637 Oct, [facility] [id number] [place] [address] 62769- 0903 Oct, [facility] [id number] [place] [address] 31693- 9206 Oct, Chondromalacia, left knee M94.262 [facility] [id number] [place] [address] 01344- 2629 Sep, [facility] [address] [place] [address] 05150- 6585 Aug, [facility] [id number] [place] [address] 79108- 2478 Aug, [facility] [id number] [place] [address] 45979- 9441 July, Chondromalacia, left knee M94.262 [facility] [id number] [place] [address] 48292- 9986 July, [facility] [id number] [place] [address] 26316- 1348 July, [facility] [address] [id number] [place] [address] 79617- 9913 Jun, Abscess L02.91 and Vaginal bleeding between periods N92.0 [facility] [address] [place] [id number] [place] [address] 00973- 5995 Jun, [facility] [address] [id number] [place] [address] 57539- 4427 Jun, Pain in left knee M25.562 and Other chronic pain G89.29 [place] [address] [id number] [place] [address] 01175- 9449 Jun, Pain in left knee M25.562 and Other chronic pain G89.29 [place] [address] [place] [id number] [place] [address] 71003- 9873 Jun, [facility] [address] [place] [id number] [place] [address] 52591- 1267 Jun, Low back pain M54.5 [place] [address] [place] [id number] [place] [address] 16547- 1011 Jun, Pain in right knee M25.561 [place] [address] [place] [address] 31562 2548 Jun, [facility] [address] [place] [id number] [place] [address] 02603- 2549 Jun, Low back pain M54.5 [facility] [address] [place] [id number] [place] [address] 97365 2547 May, Cervical neuritis M54.12 ; Thoracic neuritis M54.14 and Pain in right knee M25.561 [facility] [address] [place] [address] 99941- 1232 May, 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 [facility] [address] [place] [address] 22387- 6187 04 Apr, 2015 Well woman exam Z01.419 and Thyroid enlarged E04.9 [facility] [address] [place] [id number] [place] [address] 65425- 8303 03 Apr, 2015 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 ; Low back pain M54.5 and Endometrial hyperplasia N85.00 [place] [address] [place] [address] [id number] [place] [address] 13085- 4416 Mar, Well woman exam Z01.419 ; Encounter [...] cancer Z80.41 and Dense breast tissue R92.2 [place] [address] [place] [address] [id number] [place] [address] 76370- 4319 Mar, Acute sinusitis, recurrence not specified, unspecified location J01.90 [place] [address] [id number] [place] [address] 31496- 2705 Mar, [place] [address] [place] [id number] [place] [address] 05629- 9068 Feb, [facility] [address] [id number] [place] [address] 42045- 9741 Dec, [facility] [address] [place] [id number] [place] [address] 95227- 6544 Nov, [facility] [address] [place] [id number] [place] [address] 32879- 0000 Nov, Sinusitis 473.9 [place] [address] [place] [address]- 6212 Oct, [facility] [id number] [place] [address] 86088- 4245 Sep, Lumbago 724.2 [facility] [id number] [place] [address] 87473- 4902 Sep, Upper respiratory infection 465.9 [facility] [address] [id number] [place] [address] 21184- 1032 Aug, Lumbago 724.2 [facility] [address] [place] [id number] [place] [address] 17882- 1839 Aug, Abscess 682.9 [facility] [address] [id number] [place] [address] 19449- 5842 Aug, Abscess and cellulitis 682.9 [facility] [address] [id number] [place] [address] 13795- 4068 Aug, Insect bite of buttock, infected 911.9 [facility] [address] [address]- 2396 July, Lumbago 724.2 [facility] [address] [id number] [place] [address] 35652- 7246 July, [facility] [address] [place] [address] 05744- 8608 July, Routine gynecological examination V72.31 ; Screen for STD ( sexually transmitted disease) V74.5 ; Routine physicl lab exam V72.62 and Vulvar abscess 616.4 [facility] [id number] [place] [address] 64718- 1554 July, [facility] [address] [place] [id number] [place] [address] 87287- 6294 Jun, [facility] [address] [address]- 1202 Jun, [facility] [address] [place] [id number] [place] [address]- 0294 May, [facility] [place] [facility] [address] [id number] [place] [address]- 2994 May, [facility] [place] [facility] [address] [id number] [place] [address]- 0889 May, [facility] [place] [facility] [address] [id number] [place] [address]- 7422 May, 2014 [facility] [place] [facility] [address] [id number] [place] [address]- 1248 Apr, 2014 [facility] [place] [facility] [address] [id number] [place] [address]- 8305 Apr, 2014 [facility] [place] [facility] [address] [facility] [id number] [place] [address]- 3054 Apr, 2014 [facility] [place] [facility] [address] [facility] [id number] [place] [address]- 8720 Apr, 2014 [facility] [place] [facility] [address] [facility] [id number] [place] [address]- 7291 Apr, [facility] [place] [facility] [address] [facility] [id number] [place] [address]- 4109 Apr, [facility] [place] [facility] [address] [facility] [id number] [place] [address]- 0262 Apr, 2014 [facility] [place] [facility] [address] [facility] [id number], [place] [address]- 7584 Apr, 2014 [facility] [place] [facility] [address] [facility] [id number] [place] [address]- 6693 Apr, [facility] [place] [facility] [address] [id number] [place] [address]- 5113 Apr, [facility] [place] [facility] [address] [facility] [id number], [place] [address]- 1689 Mar, [facility] [place] [facility] [address] [facility] [id number], [place] [address]- 4369 14 Mar, 2014 [facility] [place] [facility] [address] [id number] [place] [address]- 3742 17 Feb, 2014 [facility] [place] [facility] [address] [id number] [place] [address]- 2511 17 Feb, 2014 [facility] [place] [facility] [address] [facility] [id number] [place] [address]- 9891 15 Feb, 2014 [facility] [place] [facility] [address] [id number] [place] [address]- 9836 15 Feb, 2014 [facility] [place] [facility] [address] [id number] [place] [address]- 4968 10 Feb, 2014 [facility] [place] [facility] [address] [id number] [place] [address]- 8766 10 Feb, 2014 [facility] [place] [facility] [address] [facility] [id number] [place] [address]- 7563 Jan, [facility] [place] [facility] [address] [id number] [place] [address]- 8220 Jan, [facility] [place] [facility] [address] [facility] [id number] [place] [address]- 8024 Jan, [facility] [place] [facility] [address] [facility] [id number] [place] [address]- 6154 Jan, [facility] [place] [facility] [address] [id number] [place] [address]- 3770 Jan, [facility] [place] [facility] [address] [id number] [place] [address]- 4939 Jan, [facility] [place] [facility] [address] [id number] [place] [address]- 2316 31 Dec, 2013 [facility] [place] [facility] [address] [id number] [place] [address]- 9353 Dec, [facility] [place] [facility] [address] [facility] [id number] [place] [address]- 8214 31 Dec, 2013 [facility] [place] [facility] [address] [id number] [place] [address]- 4684 31 Dec, 2013 [facility] [place] [facility] [address] [id number] [place] [address]- 6088 15 Dec, 2013 [facility] [place] [facility] [address] [id number] [place] [address]- 8016 15 Dec, 2013 [facility] [place] [facility] [address] [id number] [place] [address]- 5190 Dec, [facility] [place] [facility] [address] [id number] [place] [address]- 3534 Dec, [facility] [place] [facility] [address] [id number] [place] [address]- 3722 26 Nov, 2013 [facility] [place] [facility] [address] [id number] [place] [address]- 1591 24 Nov, 2013 [facility] [place] [facility] [address] [id number] [place] [address]- 0665 24 Nov, 2013 [facility] [place] [facility] [address] [id number] [place] [address]- 5187 15 Nov, 2013 [facility] [place] [facility] [address] [id number] [place] [address]- 1798 15 Nov, 2013 [facility] [place] [facility] [address] [id number] [place] [address]- 6460 Oct, [facility] [place] [facility] [address] [id number] [place] [address]- 7527 Oct, [facility] [place] [facility] [address] [id number] [place] [address]- 3888 Oct, [facility] [place] [facility] [address] [id number] [place] [address]- 3748 Oct, [facility] [place] [facility] [address] [id number] [place] [address]- 0841 Oct, [facility] [place] [facility] [address] [id number] [place] [address]- 4103 Sep, [facility] [place] [facility] [address] [id number] [place] [address]- 9060 Sep, [facility] [place] [facility] [address] [id number] [place] [address]- 7758 Sep, [facility] [place] [facility] [address] [id number] [place] [address]- 9290 Sep, [facility] [place] [facility] [address] [id number] [place] [address]- 3332 Sep, [facility] [place] [facility] [address] [id number] [place] [address]- 8919 Sep, [facility] [place] [facility] [address] [id number] [place] [address]- 7422 Aug, [facility] [place] [facility] [address] [id number] [place] [address]- 7337 Aug, [facility] [place] [facility] [address] [id number] [place] [address]- 4545 Aug, [facility] [place] [facility] [address] [id number] [place] [address]- 1031 Aug, [facility] [place] [facility] [address] [id number] [place] [address]- 6417 Aug, [facility] [place] [facility] [address] [id number] [place] [address]- 2360 Aug, [facility] [place] [facility] [address] [id number], [place] [address]- 3381 Jun, [facility] [place] [facility] [address] [id number] [place] [address]- 0946 Jun, [facility] [place] [facility] [address] [id number] [place] [address]- 6184 May, [facility] [place] [facility] [address] [id number] [place] 7771 May, [facility] [place] [facility] [address] [id number] [place] [address]- 6075 05 Apr, 2013 [facility] [place] [facility] [address] [id number] [place] [address]- 8275 Apr, [facility] [place] [facility] [address] [id number] [place] [address]- 6959 Apr, [facility] [place] [facility] [address] [id number] [place] [address]- 9277 Apr, [facility] [place] [facility] [address] [id number] [place] [address]- 5925 Mar, [facility] [place] [facility] [address] [id number] [place] [address]- 3590 Mar, [facility] [place] [facility] [address] [id number] [place] [address]- 4055 Mar, [facility] [place] [facility] [address] [id number] [place] [address]- 8563 Mar, [facility] [place] [facility] [address] [id number] [place] [address]- 4090 Mar, [facility] [place] [facility] [address] [facility] [id number] [place] [address]- 3129 Mar, [facility] [place] [facility] [address] [facility] [id number] [place] [address]- 3016 Mar, [facility] [place] [facility] [address] [id number] [place] [address]- 9472 Mar, [facility] [place] [facility] [address] [id number] [place] [address]- 5860 Mar, [facility] [place] [facility] [address] [id number] [place] [address]- 8165 Mar, [facility] [place] [facility] [address] [id number] [place] [address]- 1686 Dec, [facility] [place] [facility] [address] [id number] [place] [address]- 0344 Dec, [facility] [address] [id number] [place] [address]- 8054 Dec, [facility] [place] [facility] [address] [id number] [place] [address]- 2906 Dec, [facility] [place] [facility] [address] [id number] [place] [address]- 2961 Dec, [facility] [place] [facility] [address] [id number] [place] [address]- 4193 Dec, [facility] [place] [facility] [address] [id number] [place] [address]- 8024 Nov, [facility] [place] [facility] [address] [id number] [place] [address]- 4979 Jun, [facility] [place] [facility] [address] [id number] [place] [address]- 4633 Jun, [facility] [place] [facility] [address] [id number] [place] [address]- 7987 Jun, [facility] [place] [facility] [address] [id number] [place] [address]- 1308 May, [facility] [place] [facility] [address] [id number], [place] [address]- 4167 May, [facility] [place] [facility] [address] [id number], [place] [address]- 3240 Apr, [facility] [place] [facility] [address] [id number], [place] [address] Mar, [facility] [place] [facility] [address] [id number] [place] [address] Mar, [facility] [place] [facility] [address] [id number], [place] [address] Mar, [facility] [place] [facility] [address] [id number], [place] [address] Mar, [facility] [place] [facility] [address] [id number], [place] [address] Mar, [facility] [id number] [address] Mar, [facility] [id number] [address] Mar, [facility] [id number] [address] Mar, [facility] [id number] [place] [address] Mar, [facility] [id number] [place] [address] Mar, [facility] [id number] [place] [id number]- [address] Feb, [facility] [id number] [place] [address]- [address] Feb, [facility] [id number] [place] [address]- [address] Feb, [facility] [id number] [place] [address] Mar, [facility] [id number] [address] Feb, [facility] [id number] [id number] Feb, IMMUNIZATIONS No Known Immunizations SOCIAL HISTORY Never Assessed REASON FOR VISIT med/lab order PLAN OF CARE VITAL SIGNS MEDICATIONS Medication Instructions Dosage Frequency Start Date End Date Duration Status Levothyroxine Sodium 50 mcg Orally Once a day 1 tablet on an empty stomach in the morning 24h Jun, 30 day(s) Active RESULTS No Results PROCEDURES No Known procedures [...]
--- OUTSIDE RECORDS SUMMARY | 2018-01-15 17:09 | XMS REPORT ---
Author Author MARTIN GUERRERO Organization [facility] Address [address] [place] [address] Care Team Providers Care Flow Worker Name Role Phone MARTIN GUERRERO Unavailable PROBLEMS Type Condition ICD9-CM Code KXX15-SM Code Onset Dates Condition Status SNOMED Code Problem Carpal tunnel syndrome G56.00 Active 33580254 Problem Other inflammatory polyneuropathies G61.89 Active 386443774 Problem Acquired hypothyroidism E03.9 Active 408587762 Problem Malignant lymphoma of lymph nodes C85.90 Active 100716993 Problem Other hyperlipidemia E78.4 Active 18799396 Problem Thyroid nodule E04.1 Active 395078696 Problem Endometrial hyperplasia N85.00 Active 092581134 Problem Low back pain M54.5 Active 004942134 Problem Lumbago with sciatica, left side M54.42 Active 638243949 Problem Pain in left knee M25.562 Active 99762614 ALLERGIES No Information ENCOUNTERS Encounter Location Date Diagnosis [place] [id number] [place] [address] 33914- 1518 Aug, Thyroid nodule E04.1 [place] [id number] [place] [address] 77632- 5235 Aug, [place] [id number] [place] [address] 68019- 8790 July, Elevated TSH R94.6 [place] [id number] [place] [address] 16017- 2574 Jun, Thyroid nodule E04.1 [place] [id number] [place] [address] 77588- 3768 Jun, Well woman exam (no gynecological exam) Z00.00 ; Thyroid nodule E04.1 ; Weight gain R63.5 ; Other hyperlipidemia E78.4 and Excessive cerumen in both ear canals H61.23 [facility] [id number] [place] [address] 34304- 6350 Jan, Low back pain M54.5 [facility] [id number] [place] [address] 04663- 9066 Jan, [facility] [id number] [place] [address] 26914 -7317 Nov, Abscess L02.91 [facility] [id number] [place] [address] 62211- 5445 Nov, Low back pain M54.5 [facility] [address] 56476- 2569 Oct, Lumbago with sciatica, left side M54.42 [facility] [id number] [place] [address] [id number] Oct, [facility] [address] 76109- 3621 Oct, Carpal tunnel syndrome G56.00 [facility] [address] [id number] Sep, Dental examination Z01.20 [facility] [id number] [place] [address] 14102- 5128 Aug, Carpal tunnel syndrome G56.00 [facility] [id number] [place] [address] 13353- 0777 July, [facility] [id number] [place] [address] 38507- 7622 July, [facility] [id number] [place] [address] 31074- 0268 July, Carpal tunnel syndrome G56.00 [facility] [id number] [place] [address] 50556- 4659 May, Carpal tunnel syndrome G56.00 and Cervical neuritis M54.12 [place] [address] [facility] [id number] [address] 8310 May, [facility] [id number] [place] [address] 89510- 3986 Mar, [facility] [id number] [address] 3396 Feb, [facility] [id number] [place] [address] 64698- 4316 Feb, [facility] [address] [facility] [id number] [place] [address] 36768- 9181 Feb, Low back pain M54.5 and Pain in left knee M25.562 [facility] [address] [address] 1916 Feb, Low back pain M54.5 [facility] [id number] [place] [address] 96686- 9576 Jan, Low back pain M54.5 [facility] [address] [place] [address] 87873- 0254 Jan, Low back pain M54.5 [facility] [id number] [place] [address] 57656- 7968 Jan, [facility] [address] [address]- 9693 Jan, [facility] [address] [address]- 5812 Jan, [facility] [address], [place] [address]- 6199 Dec, Throat mass R22.1 [facility] [address] [address]- 5889 Dec, Throat mass R22.1 [facility] [address] [address]- 1671 Dec, Mass in neck R22.1 [facility] [address] [address]- 6775 Dec, [facility] [id number] [place] [address] 45962- 0060 Dec, Cough R05 and Encounter for immunization Z23 [facility] [id number] [place] [address] 62809- 1897 Nov, Upper respiratory tract infection, unspecified type J06.9 [facility] [id number] [place] [address] 49263- 9004 Nov, [facility] [id number] [place] [address] 83122- 6278 Nov, [facility] [id number] [place] [address] 60903- 3946 Nov, Chondromalacia, left knee M94.262 [facility] [id number] [place] [address] 96771- 1070 Oct, [facility] [id number] [place] [address] 66807- 5908 Oct, [facility] [address] [place] [address] 57188- 4315 Oct, Chondromalacia, left knee M94.262 [facility] [address] [address]- 9550 Sep, [facility] [id number] [address]- 0653 Aug, [facility] [address], [place] [address]- 6964 Aug, [facility] [address] [address]- 0810 July, Chondromalacia, left knee M94.262 [facility] [address] [place] [address] 92083- 7230 July, [facility] [id number] [place] [address] 46262- 5169 July, [facility] [id number] [place] [address] 93897- 7355 Jun, Abscess L02.91 and Vaginal bleeding between periods N92.0 [facility] [id number] [place] [address] 04539- 4756 Jun, [facility] [id number] [place] [address] 01725- 6867 Jun, Pain in left knee M25.562 and Other chronic pain G89.29 [facility] [id number] [place] [address] 24184- 7224 Jun, Pain in left knee M25.562 and Other chronic pain G89.29 [facility] [id number] [place] [address] 78978- 6137 Jun, [facility] [id number] [place] [address] 70137- 6696 Jun, Low back pain M54.5 [facility] [id number] [place] [address] 45892- 4009 Jun, Pain in right knee M25.561 [facility] [id number] [place] [address] 19900- 1272 Jun, [facility] [id number] [place] [address] 21032- 3652 Jun, Low back pain M54.5 [facility] [id number] [place] [address] 39689- 3747 May, Cervical neuritis M54.12 ; Thoracic neuritis M54.14 and Pain in right knee M25.561 [facility] [id number] [place] [address] 87222- 1504 May, [facility] use of drug Z79.899 [facility] [address] [place] [address] 20824- 4614 04 Apr, 2015 Well woman exam Z01.419 and Thyroid enlarged E04.9 [place] [id number] [place] [address] 82971- 9542 03 Apr, 2015 intermediate frame tender use of drug Z79.899 ; Low back pain M54.5 and Endometrial hyperplasia N85.00 [place] [address] 70193- 3448 Mar, Well woman exam Z01.419 ; Encounter [...] cancer Z80.41 and Dense breast tissue R92.2 [place] [id number] [place] [address] 55432- 5926 Mar, Acute sinusitis, recurrence not specified, unspecified location J01.90 [place] [id number] [place] [address] 80769- 6383 Mar, [place] [id number] [place] [address] 99147- 1571 Feb, [place] [id number] [place] [address] 88981- 9915 Dec, [place] [address] 51526- 9826 Nov, [place] [id number] [place] [address] 67337- 9885 Nov, Sinusitis 473.9 [place] [address] 61046- 2132 Oct, [facility] [address] [address]- 0928 Sep, Lumbago 724.2 [facility] [address] [place] [address] 36451- 1170 Sep, Upper respiratory infection 465.9 [facility] [address] [place] [address] 69498- 3677 Aug, Lumbago 724.2 [facility] [address] [place] [address] 24447- 7279 Aug, Abscess 682.9 [facility] [id number] [place] [address] 27736- 8470 Aug, Abscess and cellulitis 682.9 [facility] [address] [place] [address] 74027- 4111 Aug, Insect bite of buttock, infected 911.9 [facility] [address] [place] [address] 98108- 9811 July, Lumbago 724.2 [facility] [address] [place] [address] 87603- 2606 July, [facility] [address] [address]- 4932 July, Routine gynecological examination V72.31 ; Screen for STD ( sexually transmitted disease) V74.5 ; Routine physicl lab exam V72.62 and Vulvar abscess 616.4 [facility] [address], [place] [address]- 2364 July, [facility] [id number] [place] [address] 45458- 4404 Jun, [facility] [address] [address]- 8750 Jun, [facility] [address] [place] [address] 96895- 8736 May, [facility] [place] [facility] [address] [id number] [place] [address]- 3078 May, [facility] [place] [facility] [address] [id number] [place] [address]- 3984 May, [facility] [place] [facility] [address] [facility] [id number] [place] [address]- 4470 May, [facility] [place] [facility] [address] [id number] [place] [address]- 1324 Apr, 2014 [facility] [place] [facility] [address] [id number] [place] [address]- 1913 Apr, 2014 [facility] [place] [facility] [address] [facility] [id number] [place] [address]- 0176 Apr, 2014 [facility] [place] [facility] [address] [facility] [id number] [place] [address]- 0752 Apr, 2014 [facility] [place] [facility] [address] [facility] [id number] [place] [address]- 4556 Apr, 2014 [facility] [place] [facility] [address] [facility] [id number] [place] [address]- 0579 05 Apr, 2014 [facility] [place] [facility] [address] [facility] [id number] [place] [address]- 0393 Apr, [facility] [place] [facility] [address] [facility] [id number] [place] [address]- 8743 Apr, 2014 [facility] [place] [facility] [address] [facility] [id number] [place] [address]- 8735 Apr, 2014 [facility] [place] [facility] [address] [id number] [place] [address]- 5500 Apr, 2014 [facility] [place] [facility] [address] [facility] [id number] [place] 9696 Mar, [facility] [place] [facility] [address] [facility] [id number] [place] [address]- 3991 Mar, [facility] [place] [facility] [address] [id number] [place] [address]- 3647 17 Feb, 2014 [facility] [place] [facility] [address] [id number] [place] [address]- 8565 17 Feb, 2014 [facility] [place] [facility] [address] [id number] [place] [address]- 6451 15 Feb, 2014 [facility] [place] [facility] [address] [id number] [place] [address]- 8552 15 Feb, 2014 [facility] [place] [facility] [address] [id number] [place] [address]- 7355 Feb, [facility] [place] [facility] [address] [id number] [place] [address]- 1842 Feb, [facility] [place] [facility] [address] [id number] [place] [address]- 6145 Jan, [facility] [place] [facility] [address] [id number] [place] [address]- 9151 Jan, [facility] [place] [facility] [address] [id number] [place] [address]- 5031 Jan, [facility] [place] [facility] [address] [id number] [place] [address]- 7598 Jan, [facility] [place] [facility] [address] [id number] [place] [address]- 6619 Jan, [facility] [place] [facility] [address] [id number] [place] [address]- 5427 Jan, [facility] [place] [facility] [address] [id number] [place] [address]- 0686 Dec, [facility] [place] [facility] [address] [id number] [place] [address]- 8121 Dec, [facility] [place] [facility] [address] [id number] [place] [address]- 5489 Dec, [facility] [place] [facility] [address] [id number], [place] [address]- 3996 Dec, [facility] [place] [facility] [address] [id number] [place] [address]- 5768 15 Dec, 2013 [facility] [place] [facility] [address] [id number] [place] [address]- 8914 15 Dec, 2013 [facility] [place] [facility] [address] [id number] [place] [address]- 1797 Dec, [facility] [place] [facility] [address] [id number] [place] [address]- 2591 Dec, [facility] [place] [facility] [address] [id number] [place] [address]- 7638 Nov, [facility] [place] [facility] [address] [id number] [place] [address]- 6511 Nov, [facility] [place] [facility] [address] [id number] [place] [address]- 0377 Nov, [facility] [place] [facility] [address] [id number] [place] [address]- 7254 15 Nov, 2013 [facility] [place] [facility] [address] [id number] [place] [address]- 3786 Nov, [facility] [place] [facility] [address] [id number] [place] [address]- 6747 Oct, [facility] [place] [facility] [address] [id number] [place] [address]- 7543 Oct, [facility] [place] [facility] [address] [id number] [place] [address]- 1233 Oct, [facility] [place] [facility] [address] [id number] [place] [address]- 0843 Oct, [facility] [place] [facility] [address] [id number] [place] [address]- 2296 Oct, [facility] [place] [facility] [address] [id number] [place] [address]- 0782 Sep, [facility] [place] [facility] [address] [id number] [place] [address]- 9740 Sep, [facility] [place] [facility] [address] [id number] [place] [address]- 2308 Sep, [facility] [place] [facility] [address] [id number] [place] [address]- 2606 Sep, [facility] [place] [facility] [address] [id number] [place] [address]- 5374 Sep, [facility] [place] [facility] [address] [id number] [place] [address]- 6964 Sep, [facility] [place] [facility] [address] [id number] [place] [address]- 7438 Aug, [facility] [place] [facility] [address] [id number] [place] [address]- 9088 Aug, [facility] [place] [facility] [address] [id number] [place] [address]- 8879 Aug, [facility] [place] [facility] [address] [id number] [place] [address]- 9928 Aug, [facility] [place] [facility] [address] [id number] [place] [address]- 9888 Aug, [facility] [place] [facility] [address] [id number] [place] [address]- 8792 Aug, [facility] [place] [facility] [address] [id number] [place] [address]- 0729 Jun, [facility] [place] [facility] [address] [id number] [place] [address]- 0426 Jun, [facility] [place] [facility] [address] [id number] [place] [address]- 9896 May, [facility] [place] [facility] [address] [id number] [place] [address]- 2546 May, [facility] [place] [facility] [address] [id number] [place] [address]- 1371 Apr, [facility] [place] [facility] [address] [id number] [place] [address]- 0263 Apr, [facility] [place] [facility] [address] [id number] [place] [address]- 4952 Apr, [facility] [place] [facility] [address] [id number] [place] [address]- 5749 Apr, [facility] [place] [facility] [address] [id number] [place] [address]- 5923 Mar, [facility] [place] [facility] [address] [id number] [place] [address]- 4125 Mar, [facility] [place] [facility] [address] [id number] [place] [address]- 9133 Mar, [facility] [place] [facility] [address] [id number] [place] [address]- 5719 Mar, [facility] [place] [facility] [address] [id number] [place] [address]- 8193 Mar, [facility] [place] [facility] [address] [id number] [place] [address]- 0394 Mar, [facility] [place] [facility] [address] [id number] [place] [address]- 1748 Mar, [facility] [place] [facility] [address] [id number], [place] [address]- 3429 Mar, [facility] [place] [facility] [address] [id number], [place] [address]- 8483 Mar, [facility] [place] [facility] [address] [id number] [place] [address]- 8778 Mar, [facility] [place] [facility] [address] [id number] [place] [address]- 5153 Dec, [facility] [place] [facility] [address] [id number] [place] [address]- 2789 Dec, [facility] [place] [facility] [address] [id number] [place] [address]- 0934 Dec, [facility] [address] [id number] [place] [address]- 8723 Dec, [facility] [address] [id number] [place] [address]- 7897 Dec, [facility] [address] [id number] [place] [address]- 0293 Dec, [facility] [address] [id number] [place] [address]- 7967 Nov, [facility] [address] [id number] [place] [address]- 4824 Jun, [facility] [address] [id number] [place] [address]- 4674 Jun, [facility] [address] [id number] [place] [address]- 5800 Jun, [facility] [address] [id number] [place] [address]- 8252 May, [facility] [address] [id number] [place] [address]- 9439 May, [facility] [address] [id number] [place] [address]- 3458 Apr, [facility] [address] [id number] [place] [address]- 8506 Mar, [facility] [address] [id number] [place] [address]- 0162 Mar, [facility] [address] [id number] [place] [address]- 3758 Mar, [facility] [address] [id number] [place] [address]- 6012 Mar, [facility] [address] [id number] [place] [address]- 8118 Mar, [facility] [address] [facility] [id number], [place] [address]- 5313 Mar, [facility] [address] [facility] [id number], [place] [address]- 6786 Mar, [facility] [address] [facility] [id number], [place] [address]- 3446 Mar, [facility] [address] [facility] [id number], [place] [address]- 8816 Mar, [facility] [address] [facility] [id number], [place] [address]- 5651 Mar, [facility] [address] [facility] [id number], [place] [address]- [address] Feb, [facility] [address] [facility] [id number], [place] [address] Feb, [facility] [id number] [address] Feb, [facility] [address] [facility] [id number], [place] [address] Mar, [facility] [address] [id number], [place] [address] Feb, [facility] [address] [id number], [place] [address] Feb, IMMUNIZATIONS No Known Immunizations SOCIAL HISTORY Never Assessed REASON FOR VISIT med question PLAN OF CARE VITAL SIGNS MEDICATIONS [...]
--- OUTSIDE RECORDS SUMMARY | 2018-01-15 17:10 | XMS REPORT ---
Author Author MARTIN GUERRERO Organization [employer] Address Unknown Phone Unavailable Care Team Providers Care Tape Recorder Repairer Name Role Phone MARTIN GUERRERO CP Unavailable Allergies No Known Allergies Problems Problem Type Condition Code Onset Dates Condition Status Problem Rash and other nonspecific skin eruption 782.1 Active Problem Trichomonal vulvovaginitis 131.01 Active Problem Impacted cerumen 380.4 Active Problem Acute sinusitis, unspecified 461.9 Active Problem Unspecified symptom associated with female genital organs 625.9 Active Problem Cough 786.2 Active Problem Urgency of urination 788.63 Active Problem Screening examination for venereal disease V74.5 Active Problem Mastodynia 611.71 Active Problem Acute upper respiratory infections of unspecified site 465.9 Active Problem Routine gynecological examination V72.31 Active Problem Carpal tunnel syndrome 354.0 Active Problem Nondependent tobacco use disorder 305.1 Active Problem Other specified disorders of breast 611.89 Active Problem Endometrial hyperplasia, unspecified 621.30 Active Problem Excessive or frequent menstruation 626.2 Active Problem Other screening mammogram V76.12 Active Problem Need for prophylactic vaccination and inoculation, Influenza V04.81 Active Problem Unspecified inflammatory and toxic neuropathy 357.9 Active Problem Lumbago 724.2 Active Problem Other malaise and fatigue 780.79 Active Problem Allergy, unspecified not elsewhere classified 995.3 Active Problem Other malignant lymphomas of lymph nodes of multiple sites 202.88 Active Medications Medication Code System Code Instructions Start Date End Date Status Dosage [facility] [address]-85 5-325 MG May 13, 2014 take 1 tablet by Oral route every 6 hours as needed for pain Results No Known Results Summary Purpose [employer] Submission
--- OUTSIDE RECORDS SUMMARY | 2018-01-15 17:10 | XMS REPORT ---
Author Author MARTIN GUERRERO Organization [employer] Address Unknown Phone Unavailable Care Team Providers Care Dance Teacher Name Role Phone MARTIN GUERRERO CP Unavailable Allergies No Known Allergies Problems Problem Type Condition ICD-9 Code Onset Dates Condition Status Problem Rash [...] Instructions Start Date End Date Status Dosage [facility] [address]-70 5-325 MG May 13, 2014 take 1 tablet by Oral route every 6 hours as needed for pain Results No Known Results Summary Purpose [employer] Submission
--- OUTSIDE RECORDS SUMMARY | 2018-01-15 17:10 | XMS REPORT ---
Author Author MARTIN GUERRERO Organization [employer] Address Unknown Phone Unavailable Care Team Providers Care Clinical Advisor Name Role Phone MARTIN GUERRERO CP Unavailable [...] Instructions Start Date End Date Status Dosage [facility] [address]-73 5-325 MG May 13, 2014 take 1 tablet by Oral route every 6 hours as needed for pain Results No Known Results Summary Purpose [employer] Submission
--- OUTSIDE RECORDS SUMMARY | 2018-01-15 17:10 | XMS REPORT ---
Author Author MARTIN GUERRERO Organization [employer] Address Unknown Phone Unavailable Care Team Providers Care Human Resources Manager Name Role Phone MARTIN GUERRERO CP Unavailable Allergies No Known Allergies Problems Problem Type Condition Code Onset Dates Condition Status Problem Other inflammatory polyneuropathies G61.89 Active Problem Low back pain M54.5 Active Problem Pain in left knee M25.562 Active Problem Malignant lymphoma of lymph nodes C85.90 Active Problem Endometrial hyperplasia N85.00 Active Problem Carpal tunnel syndrome G56.00 Active Medications Medication Code System Code Instructions Start Date End Date Status Dosage [facility] [address]-88 5-325 MG every 6 hrs. MUST LAST 30 DAYS May 13, 2014 1 tablet as needed Results No Known Results Summary Purpose [employer] Submission
--- OUTSIDE RECORDS SUMMARY | 2018-01-15 17:10 | XMS REPORT ---
Author Author HAYLIE BARCENAS Organization [employer] Address Unknown Phone Unavailable Care Team Providers Care Industrial X Ray Operator Name Role Phone HAYLIE BARCENAS CP Unavailable Allergies, Adverse Reactions, Alerts Substance Reaction Event Type N.K.D.A. Info Not Available Non Drug Allergy Problems Problem Type Condition Code Onset Dates Condition Status Assessment Vaginal bleeding between periods N92.0 Active Problem Other inflammatory polyneuropathies G61.89 Active Problem Low back pain M54.5 Active Problem Pain in left knee M25.562 Active Problem Malignant lymphoma of lymph nodes C85.90 Active Assessment Abscess L02.91 Active Problem Endometrial hyperplasia N85.00 Active Problem Carpal tunnel syndrome G56.00 Active Medications Medication Code System Code Instructions Start Date End Date Status Dosage Xanax [facility] [address]-67 1 MG Orally 1 1 tablet [place] [facility] [address]-57 5-325 MG every 6 hrs. MUST LAST 30 DAYS May 13, 2014 1 tablet as needed Wellbutrin XL [facility] [address]-45 150 MG Orally 1 1 tablet in the morning Clindamycin HCl [facility] [address]-24 300 MG Orally every 8 hrs July 02, 2015 July 09, 2015 1 capsule Ibuprofen [facility] [address]-35 800 mg Jan 22, 2014 take 1 tablet ( 800 mg) by oral route 3 times per day with food PRN Procedures Procedure Coding System Code Date Office Visit, Est Pt., Level 3 CPT-4 26522 July 02, 2015 Vital Signs Date/Time: July 02, 2015 Temperature 98.3 F Weight 152.0 lbs Height 64 in BMI 26.09 Index Blood Pressure Diastolic 76 mmHg Blood Pressure Systolic 128 mmHg Cardiac Monitoring Heart Rate 70 bpm Results No Known Results Summary Purpose [employer] Submission
--- OUTSIDE RECORDS SUMMARY | 2018-01-15 17:10 | XMS REPORT ---
Author Author MARTIN GUERRERO Organization [employer] Address Unknown Phone Unavailable Care Team Providers Care Water Control Supervisor Name Role Phone MARTIN GUERRERO CP Unavailable Allergies, Adverse Reactions, Alerts Substance Reaction Event Type N.K.D.A. Info Not Available Non Drug Allergy Problems Problem Type Condition Code Onset Dates Condition Status Problem Other inflammatory polyneuropathies G61.89 Active Problem Low back pain M54.5 Active Problem Pain in left knee M25.562 Active Problem Malignant lymphoma of lymph nodes C85.90 Active Assessment Mass in neck R22.1 Active Problem Endometrial hyperplasia N85.00 Active Problem Carpal tunnel syndrome G56.00 Active Medications Medication Code System Code Instructions Start Date End Date Status Dosage Xanax [facility] 2] [address]-13 1 MG Orally Twice a day as needed 1 tablet [place] [facility] 2] [address]-97 5-325 MG every 6 hrs. MUST LAST 30 DAYS May 13, 2014 1 tablet as needed Wellbutrin XL [facility]NOTE 2] [address]-24 150 MG Orally Once in AM, once in afternoon 2 tablets Procedures Procedure Coding System Code Date Office Visit, Est Pt., Level 3 CPT-4 98301 Dec 23, 2015 Vital Signs Date/Time: Dec 23, 2015 Cardiac Monitoring Heart Rate 96 bpm Weight 151.3 lbs Height 64 in BMI 25.97 Index Blood Pressure Diastolic 90 mmHg Blood Pressure Systolic 134 mmHg Results Name Result Date Reference Range Unit Abnormality Flag Ultrasound : Neck Summary Purpose [employer] Submission
--- OUTSIDE RECORDS SUMMARY | 2018-01-15 17:10 | XMS REPORT ---
Author Author [facility] Address [address] [place] [address] Care Team Providers Care [employer] Social Studies Tutor Name Role Phone MARTIN GUERRERO Unavailable PROBLEMS Type Condition ICD9-CM Code BAB08-DC Code Onset Dates Condition Status SNOMED Code Problem Malignant lymphoma of lymph nodes C85.90 Active 372453847 Problem Lumbago with sciatica, left side M54.42 Active 890444296 Problem Pain in left knee M25.562 Active 73859280 Problem Endometrial hyperplasia N85.00 Active 595173020 Problem Carpal tunnel syndrome G56.00 Active 29486780 Problem Low back pain M54.5 Active 563414006 Problem Other inflammatory polyneuropathies G61.89 Active 345739059 ALLERGIES No Known Allergies SOCIAL HISTORY No smoking Hx information available PLAN OF CARE VITAL SIGNS MEDICATIONS Medication Instructions Dosage Frequency Start Date End Date Duration Status [place] 7.5-325 MG Orally every 6 hrs. MUST LAST 30 DAYS 1 tablet as needed Mar, 28 days Active RESULTS No Results PROCEDURES No Known procedures IMMUNIZATIONS No Known Immunizations
--- OUTSIDE RECORDS SUMMARY | 2018-01-15 17:10 | XMS REPORT ---
Author Author MARTIN GUERRERO Organization [employer] Address Unknown Phone Unavailable Care Team Providers Care Social Work Nurse Name Role Phone MARTIN GUERRERO CP Unavailable [...] Instructions Start Date End Date Status Dosage [facility] [address]-47 5-325 MG May 13, 2014 take 1 tablet by Oral route every 6 hours as needed for pain Results No Known Results Summary Purpose [employer] Submission
--- OUTSIDE RECORDS SUMMARY | 2018-01-15 17:10 | XMS REPORT ---
Author LEONELA Johnson [employer] Address Unknown Phone Unavailable Care Team Providers Care Experimental Box Tester Name Role Phone LEONELA DODD CP Unavailable Allergies, Adverse Reactions, Alerts Substance Reaction Event Type N.K.D.A. Info Not Available Non Drug Allergy Problems Problem Type Condition Code Onset Dates Condition Status Assessment Encounter for immunization Z23 Active Problem Other inflammatory polyneuropathies G61.89 Active Problem Low back pain M54.5 Active Problem Pain in left knee M25.562 Active Problem Malignant lymphoma of lymph nodes C85.90 Active Assessment Cough R05 Active Problem Endometrial hyperplasia N85.00 Active Problem Carpal tunnel syndrome G56.00 Active Medications Medication Code System Code Instructions Start Date End Date Status Dosage Xanax [facility] [address]-15 1 MG Orally Twice a day as needed 1 tablet [place] [facility] [address]-16 5-325 MG every 6 hrs. MUST LAST 30 DAYS May 13, 2014 1 tablet as needed Promethazine-Codeine [facility] [address]-35 6.25-10 MG/5ML Orally q 4 h, prn cough Nov 23, 2015 1-2 tsp Wellbutrin XL [facility] [address]-84 150 MG Orally 1 1 tablet in the morning Procedures Procedure Coding System Code Date SINGLE IMMUNIZATION ADMIN CPT-4 08191 Dec 07, 2015 Office Visit, Est Pt., Level 3 CPT-4 90608 Dec 07, 2015 FLUARIX QUAD P-FREE 3 AND UP .50 2015 CPT-4 37655 Dec 07, 2015 Vital Signs Date/Time: Dec 07, 2015 Cardiac Monitoring Heart Rate 84 bpm Weight 151.2 lbs Height 64 in BMI 25.95 Index Blood Pressure Diastolic 84 mmHg Blood Pressure Systolic 133 mmHg Results No Known Results Immunizations Vaccine Administration Date FLUARIX QUAD P-FREE 3 AND UP .50 2015Dec 07, 2015 Summary Purpose [employer] Submission
--- OUTSIDE RECORDS SUMMARY | 2018-01-15 17:10 | XMS REPORT ---
Author Author JM Madison Organization [facility] Address [address] [place] [address] Care Team Providers Care Patient Safety Attendant Name Role Phone JM Madison Unavailable PROBLEMS Type Condition ICD9-CM Code [id number] Code Onset Dates Condition Status SNOMED Code Problem Carpal tunnel syndrome G56.00 Active 30351889 Problem Other inflammatory polyneuropathies G61.89 Active 613548582 Problem Acquired hypothyroidism E03.9 Active 970850810 Problem Malignant lymphoma of lymph nodes C85.90 Active 477223170 Problem Other hyperlipidemia E78.4 Active 13754875 Problem Thyroid nodule E04.1 Active 800635808 Problem Endometrial hyperplasia N85.00 Active 028381410 Problem Low back pain M54.5 Active 405061539 Problem Lumbago with sciatica, left side M54.42 Active 811225741 Problem Pain in left knee M25.562 Active 31989978 ALLERGIES Substance Reaction Event Type Date Status Amoxicillin upset stomach and yeast infection Drug Allergy Jun, Active ENCOUNTERS Encounter Location Date Diagnosis [place] [id number], [place] [address] Aug, Thyroid nodule E04.1 [place] [id number] [place] [address] 42401- 0438 Aug, [place] [id number] [place] [address] 66417- 8309 July, Elevated TSH R94.6 [place] [address] [place] [id number] [place] [address] 00543- 3932 Jun, Thyroid nodule E04.1 [place] [id number], [place] [address] 6[address] Jun, Well woman exam (no gynecological exam) Z00.00 ; Thyroid nodule E04.1 ; Weight gain R63.5 ; Other hyperlipidemia E78.4 and Excessive cerumen in both ear canals H61.23 [facility] [id number] [place] [address] 25583- 7532 Jan, Low back pain M54.5 [facility] [id number] [place] [address] 91912- 0399 Jan, [facility] [address] [address] Nov, Abscess L02.91 [facility] [address] 93168- 3993 Nov, Low back pain M54.5 [facility] [id number] [place] [address] 70171- 0192 Oct, Lumbago with sciatica, left side M54.42 [facility] [id number] [place] [address] [id number] Oct, [facility] [address] 02640- 6758 Oct, Carpal tunnel syndrome G56.00 [facility] [id number] [place] [address] [id number] Sep, Dental examination Z01.20 [facility] [id number] [place] [address] 25841- 5280 Aug, Carpal tunnel syndrome G56.00 [facility] [id number] [place] [address] 93177- 9074 July, [facility] [address] 49359- 5860 July, [facility] [id number] [place] [address] 58880- 5644 July, Carpal tunnel syndrome G56.00 [facility] [id number] [place] [address] 00987- 2172 May, Carpal tunnel syndrome G56.00 and Cervical neuritis M54.12 [facility] [id number] [place] [address] 65094- 6901 May, [facility] [id number] [place] [address] 44049- 3033 Mar, [facility] [id number] [place] [address] 41727- 4456 Feb, [facility] [id number] [place] [address] 57901- 2012 Feb, [facility] [id number] [place] [address] 23691- 8457 Feb, Low back pain M54.5 and Pain in left knee M25.562 [facility] [id number] [place] [address] 75076- 0429 Feb, Low back pain M54.5 [facility] [id number] [place] [address] 87520- 9132 Jan, Low back pain M54.5 [facility] [id number] [place] [address] 45534- 8511 Jan, Low back pain M54.5 [facility] [id number] [place] [address] 01484- 0956 Jan, [facility] [id number] [place] [address] 80206- 0827 Jan, [facility] [id number] [place] [address] 95132- 3633 Jan, [facility] [id number] [place] [address] 767043- 6422 Dec, Throat mass R22.1 [facility] [id number] [place] [address] 87844- 0040 Dec, Throat mass R22.1 [facility] [address], [place] [address]- 3905 Dec, Mass in neck R22.1 [facility] [id number] [place] [address] 32670- 5773 Dec, [facility] [id number] [place] [address] 63607- 5441 Dec, Cough R05 and Encounter for immunization Z23 [facility] [id number] [place] [address] 06474- 4511 Nov, Upper respiratory tract infection, unspecified type J06.9 [facility] [id number] [place] [address] 02011- 3813 Nov, [facility] [id number] [place] [address] 02138- 8627 Nov, [facility] [id number] [place] [address] 19063- 8493 Nov, Chondromalacia, left knee M94.262 [facility] [id number] [address]- 4308 Oct, [facility] [id number] [place] [address] 96392- 0142 Oct, [facility] [id number] [address]- 3116 Oct, Chondromalacia, left knee M94.262 [facility] [id number] [address]- 3638 Sep, [facility] [address], [place] [address]- 4014 Aug, [facility] [id number] [place] [address] 92839- 9018 Aug, [facility] [address], [place] [address]- 5467 July, Chondromalacia, left knee M94.262 [facility] [id number] [place] [address] 45810- 7762 July, [facility] [address] 10858- 6096 July, [facility] [id number] [place] [address] 69199 2544 Jun, Abscess L02.91 and Vaginal bleeding between periods N92.0 [facility] [address] 73398- 2087 Jun, [facility] [address] [id number] [place] [address] 17358- 0218 Jun, Pain in left knee M25.562 and Other chronic pain G89.29 [facility] [address] [id number] [place] [address] 91730- 2228 Jun, Pain in left knee M25.562 and Other chronic pain G89.29 [facility] [id number] [place] [address] 74787 2545 Jun, [facility] [address] [id number] [place] [address] 99948- 0694 Jun, Low back pain M54.5 [facility] [address] [id number] [place] [address] 12759 2545 Jun, Pain in right knee M25.561 [facility] [address] [id number] [place] [address] 86960 2546 Jun, [facility] [id number] [place] [address] 04223 2545 Jun, Low back pain M54.5 [facility] [id number] [place] [address] 13886 2546 May, Cervical neuritis M54.12 ; Thoracic neuritis M54.14 and Pain in right knee M25.561 [facility] [address] 01514- 2126 May, skilled nursing use of drug Z79.899 [place] [address] [address] [id number] [place] [address] 10576- 2879 Apr, Well woman exam Z01.419 and Thyroid enlarged E04.9 [place] [address] [address] [id number] [place] [address] 11270- 5610 03 Apr, 2015 terminal operator use of drug Z79.899 ; Low back pain M54.5 and Endometrial hyperplasia N85.00 [place] [address] [address] [id number] [place] [address] 52871- 6636 Mar, Well woman exam Z01.419 ; Encounter [...] cancer Z80.41 and Dense breast tissue R92.2 [place] [address] [address] [id number] [place] [address] 48188- 1881 Mar, Acute sinusitis, recurrence not specified, unspecified location J01.90 [place] [address] [id number] [place] [address] 62960- 8541 Mar, [place] [address] [id number] [place] [address] 28066- 2613 Feb, [place] [address] [id number] [place] [address] 44558- 4147 Dec, [place] [address] [id number] [place] [address] 54214- 9482 Nov, [place] [address] [id number] [place] [address] 99943- 9131 Nov, Sinusitis 473.9 [facility] [id number] [place] [address] 05844- 7829 Oct, [facility] [id number] [place] [address] 80117- 5218 Sep, Lumbago 724.2 [facility] [id number] [place] [address] 49182- 4954 Sep, Upper respiratory infection 465.9 [facility] [id number] [place] [address] 04368- 7458 Aug, Lumbago 724.2 [facility] [address] 88117- 5765 Aug, Abscess 682.9 [facility] [address] [id number] [place] [address] 48740- 2914 Aug, Abscess and cellulitis 682.9 [facility] [address] [id number] [place] [address] 66500- 9006 Aug, Insect bite of buttock, infected 911.9 [facility] [address] [id number] [place] [address] 11277- 7974 July, Lumbago 724.2 [facility] [address] [id number] [place] [address] 90096- 8169 July, [facility] [id number] [place] [address] 96861- 1287 July, Routine gynecological examination V72.31 ; Screen for STD ( sexually transmitted disease) V74.5 ; Routine physicl lab exam V72.62 and Vulvar abscess 616.4 [facility] [id number] [place] [address] 57792- 0665 July, [facility] [id number] [place] [address] 68369- 5853 Jun, [facility] [id number] [place] [address] 44615- 4491 Jun, [facility] [place] [facility] [address] [id number] [place] [address]- 0877 May, [facility] [place] [facility] [address] [id number] [place] [address]- 0580 May, [facility] [place] [facility] [address] [facility] [id number] [place] [address]- 1934 May, [facility] [place] [facility] [address] [facility] [id number] [place] [address]- 5892 May, [facility] [place] [facility] [address] [id number] [place] [address]- 8925 Apr, [facility] [place] [facility] [address] [facility] [id number] [place] [address]- 9054 Apr, 2014 [facility] [place] [facility] [address] [facility] [id number] [place] [address]- 2376 Apr, 2014 [facility] [place] [facility] [address] [facility] [id number] [place] [address]- 3453 Apr, 2014 [facility] [place] [facility] [address] [facility] [id number] [place] [address]- 4001 05 Apr, 2014 [facility] [place] [facility] [address] [facility] [id number] [place] [address]- 2339 05 Apr, 2014 [facility] [place] [facility] [address] [facility] [id number] [place] [address]- 4950 04 Apr, 2014 [facility] [place] [facility] [address] [facility] [id number] [address]- 4001 Apr, 2014 [facility] [place] [facility] [address] [facility] [id number] [place] [address]- 3796 02 Apr, 2014 [facility] [place] [facility] [address] [facility] [id number], [place] [address]- 1999 Apr, 2014 [facility] [place] [facility] [address] [facility] [id number], [place] [address]- 8370 Mar, [facility] [place] [facility] [address] [id number] [place] [address]- 8512 14 Mar, 2014 [facility] [place] [facility] [address] [id number] [place] [address]- 7603 17 Feb, 2014 [facility] [place] [facility] [address] [id number] [place] 0792 17 Feb, 2014 [facility] [place] [facility] [address] [id number] [place] [address]- 9159 15 Feb, 2014 [facility] [place] [facility] [address] [id number] [place] [address]- 0975 15 Feb, 2014 [facility] [place] [facility] [address] [id number] [place] [address]- 7824 Feb, [facility] [place] [facility] [address] [id number] [place] [address]- 5492 Feb, [facility] [place] [facility] [address] [id number] [place] [address]- 2583 Jan, [facility] [place] [facility] [address] [id number] [place] [address]- 4374 Jan, [facility] [place] [facility] [address] [id number] [place] [address]- 0765 Jan, [facility] [place] [facility] [address] [id number] [place] [address]- 2888 Jan, [facility] [place] [facility] [address] [id number] [place] [address]- 5707 Jan, [facility] [place] [facility] [address] [id number] [place] [address]- 3251 Jan, [facility] [place] [facility] [address] [id number] [place] [address]- 7004 Dec, [facility] [place] [facility] [address] [id number] [place] [address]- 7988 Dec, [facility] [place] [facility] [address] [id number] [place] [address]- 0839 Dec, [facility] [place] [facility] [address] [id number] [place] [address]- 9530 31 Dec, 2013 [facility] [place] [facility] [address] [id number] [place] [address]- 3261 15 Dec, 2013 [facility] [place] [facility] [address] [id number] [place] [address]- 4687 15 Dec, 2013 [facility] [place] [facility] [address] [id number] [place] [address]- 3932 Dec, [facility] [place] [facility] [address] [id number] [place] [address]- 1376 Dec, [facility] [place] [facility] [address] [id number] [place] [address]- 3713 26 Nov, 2013 [facility] [place] [facility] [address] [id number] [place] [address]- 2738 24 Nov, 2013 [facility] [place] [facility] [address] [id number] [place] [address]- 1479 24 Nov, 2013 [facility] [place] [facility] [address] [id number] [place] [address]- 6405 15 Nov, 2013 [facility] [place] [facility] [address] [id number] [place] [address]- 9491 15 Nov, 2013 [facility] [place] [facility] [address] [id number] [place] [address]- 5147 Oct, [facility] [place] [facility] [address] [id number] [place] [address]- 3239 Oct, [facility] [place] [facility] [address] [id number] [place] [address]- 5586 Oct, [facility] [place] [facility] [address] [id number] [place] [address]- 9343 Oct, [facility] [place] [facility] [address] [id number] [place] [address]- 0169 Oct, [facility] [place] [facility] [address] [id number] [place] [address]- 8561 Sep, 2013 [facility] [place] [facility] [address] [id number] [place] [address]- 8960 Sep, 2013 [facility] [place] [facility] [address] [id number] [place] [address]- 3466 Sep, 2013 [facility] [place] [facility] [address] [id number] [place] [address]- 9259 Sep, 2013 [facility] [place] [facility] [address] [id number] [place] [address]- 1638 Sep, [facility] [place] [facility] [address] [id number] [place] [address]- 0222 Sep, [facility] [place] [facility] [address] [id number] [place] [address]- 0522 Aug, [facility] [place] [facility] [address] [id number] [place] [address]- 8427 Aug, [facility] [place] [facility] [address] [id number] [place] [address]- 7920 Aug, [facility] [place] [facility] [address] [id number] [place] [address]- 3317 Aug, [facility] [place] [facility] [address] [id number] [place] [address]- 2415 Aug, [facility] [place] [facility] [address] [id number] [place] [address]- 0524 Aug, [facility] [place] [facility] [address] [id number] [place] [address]- 8283 Jun, [facility] [place] [facility] [address] [id number] [place] [address]- 0786 Jun, [facility] [place] [facility] [address] [id number] [place] [address]- 3026 May, [facility] [place] [facility] [address] [id number] [place] [address]- 5026 May, [facility] [place] [facility] [address] [id number] [place] [address]- 5918 Apr, [facility] [place] [facility] [address] [id number] [place] [address]- 8571 Apr, [facility] [place] [facility] [address] [id number] [place] [address]- 5640 Apr, [facility] [place] [facility] [address] [id number] [place] [address]- 4231 Apr, [facility] [place] [facility] [address] [id number] [place] [address]- 5855 Mar, [facility] [place] [facility] [address] [id number] [place] [address]- 7354 Mar, [facility] [place] [facility] [address] [id number] [place] [address]- 7440 Mar, [facility] [place] [facility] [address] [id number] [place] [address]- 7483 Mar, [facility] [place] [facility] [address] [id number] [place] [address]- 0550 Mar, [facility] [place] [facility] [address] [id number] [place] [address]- 7522 Mar, [facility] [place] [facility] [address] [id number], [place] [address]- 3125 Mar, [facility] [place] [facility] [address] [id number], [place] [address]- 9387 Mar, [facility] [place] [facility] [address] [id number] [place] [address]- 4413 Mar, [facility] [place] [facility] [address] [id number] [place] [address]- 7010 Mar, [facility] [place] [facility] [address] [id number] [place] [address]- 4157 Dec, [facility] [place] [facility] [address] [id number] [place] [address]- 5835 24 Dec, 2012 [facility] [address] [id number] [place] [address]- 8947 Dec, [facility] [address] [id number] [place] [address]- 2927 Dec, [facility] [address] [id number] [place] [address]- 8436 Dec, [facility] [address] [id number] [place] [address]- 2643 Dec, [facility] [address] [id number] [place] [address]- 6813 Nov, [facility] [address] [id number] [place] [address] Jun, [facility] [address] [id number] [place] [address] Jun, [facility] [address] [id number] [place] [address] Jun, [facility] [address] [id number] [place] [address] May, [facility] [address] [facility] [id number] [place] [address] May, [facility] [address] [id number] [place] [address] Apr, [facility] [place] [facility] [address] [id number] [place] [address] Mar, [facility] [place] [facility] [address] [id number] [place] [address] Mar, [facility] [place] [facility] [address] [id number] [place] [address] Mar, [facility] [place] [facility] [address] [id number] [place] [address] Mar, [facility] [address] [facility] [id number], [place] [address] Mar, [facility] [address] [facility] [id number][place] [address] Mar, [facility] [address] [facility] [id number], [place] [address] Mar, [facility] [address] [facility] [id number] [address] Mar, [facility] [address] [facility] [id number], [place] [address] Mar, [facility] [address] [facility] [id number], [place] [address] Mar, [facility] [id number] [address] Feb, [facility] [id number] [address] Feb, [facility] [address] [id number], [place] [address] Feb, [facility] [address] [id number] [address] Mar, [facility] [address] [id number], [place] [address] Feb, [facility] [address] [id number] [address] Feb, IMMUNIZATIONS No Known Immunizations SOCIAL HISTORY Never Assessed REASON FOR VISIT Breast exam required by EDW for Mammogram--[id number] PLAN OF CARE Activity Details Follow Up pending test results Reason: VITAL SIGNS Height 64 in 2017-06-08 Weight 142.6 lbs 2017-06-08 Temperature 98.5 degrees Fahrenheit 2017-06-08 Heart Rate 72 bpm 2017-06-08 Respiratory Rate 18 2017-06-08 BMI 24.47 kg/m2 2017-06-08 Blood pressure systolic 118 mmHg 2017-06-08 Blood pressure diastolic 78 mmHg 2017-06-08 MEDICATIONS Medication Instructions Dosage Frequency Start Date End Date Duration Status Ibuprofen 800 mg take 1 tablet (800 mg) by oral route 3 times per day with food PRN Jan, Active Wellbutrin XL 150 MG Orally Once a day 1 tablet in the morning 24h Active Xanax 1 MG Orally Twice a day as needed 1 tablet Active [place] 7.5-325 MG Orally every 6 hrs. 1 tablet as needed Jan, 28 days Active BuPROPion HCl ER (SR) 100 MG Orally Once a day 1 tablet in the evening 24h Active RESULTS No Results PROCEDURES Procedure Date Ordered Result Body Site ASSAY THYROID STIM HORMONE June 08, 2017 LIPID PANEL June 08, 2017 EAR IRRIGATION June 08, 2017 VENIPUNCT, ROUTINE* June 08, 2017 Separate E/M June 08, 2017 INSTRUCTIONS MEDICATIONS ADMINISTERED No Known Medications [...]
--- OUTSIDE RECORDS SUMMARY | 2018-01-15 17:11 | XMS REPORT ---
Author Author MARTIN GUERRERO [facility] Address [address] [place] [address] Care Team Providers Care Still Cleaner Tube Name Role Phone MARTIN GUERRERO Unavailable PROBLEMS Type Condition ICD9-CM Code [id number] Code Onset Dates Condition Status SNOMED Code Problem Pain in left knee M25.562 Active 83477154 Problem Other inflammatory polyneuropathies G61.89 Active 027299000 Problem Carpal tunnel syndrome G56.00 Active 69981243 Problem Malignant lymphoma of lymph nodes C85.90 Active 526505601 Problem Low back pain M54.5 Active 539062996 Problem Endometrial hyperplasia N85.00 Active 408114834 ALLERGIES Unknown Allergies SOCIAL HISTORY No smoking Hx information available PLAN OF CARE VITAL SIGNS MEDICATIONS Unknown Medications RESULTS Name Result Date Reference Range [employer] 2016-02-14 PROCEDURES Procedure Date Ordered Related Diagnosis Body Site No Charge Feb 14, 2016 IMMUNIZATIONS No Known Immunizations
--- OUTSIDE RECORDS SUMMARY | 2018-01-15 17:11 | XMS REPORT ---
Author Author MARTIN GUERRERO Organization [facility] Address [address] [place] [address] Care Team Providers Care Pewter Finisher Name Role Phone MARTIN GUERRERO Unavailable PROBLEMS Type Condition ICD9-CM Code [id number] Code Onset Dates Condition Status SNOMED Code Problem Malignant lymphoma of lymph nodes C85.90 Active 862529834 Problem Lumbago with sciatica, left side M54.42 Active 465363843 Problem Pain in left knee M25.562 Active 12548811 Problem Endometrial hyperplasia N85.00 Active 468344700 Problem Carpal tunnel syndrome G56.00 Active 16517068 Problem Low back pain M54.5 Active 251095459 Problem Other inflammatory polyneuropathies G61.89 Active 492170729 ALLERGIES No Information SOCIAL HISTORY Never Assessed PLAN OF CARE VITAL SIGNS MEDICATIONS Medication Instructions Dosage Frequency Start Date End Date Duration Status [place] 7.5-325 MG Orally every 6 hrs. 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
--- OUTSIDE RECORDS SUMMARY | 2018-01-15 17:11 | XMS REPORT ---
Author Author MARTIN GUERRERO Organization [facility] Address [address] [place] [address] Care Team Providers Care Military Administrative Technician Name Role Phone MARTIN GUERRERO Unavailable PROBLEMS Type Condition ICD9-CM Code PVQ73-PO Code Onset Dates Condition Status SNOMED Code Problem Malignant lymphoma of lymph nodes C85.90 Active 537629564 Problem Lumbago with sciatica, left side M54.42 Active 218240265 Problem Pain in left knee M25.562 Active 24585238 Problem Endometrial hyperplasia N85.00 Active 815713442 Problem Carpal tunnel syndrome G56.00 Active 71340977 Problem Low back pain M54.5 Active 262927827 Problem Other inflammatory polyneuropathies G61.89 Active 003892480 ALLERGIES No Information SOCIAL HISTORY Never Assessed PLAN OF CARE VITAL SIGNS MEDICATIONS Medication Instructions Dosage Frequency Start Date End Date Duration Status [place] 7.5-325 MG Orally every 6 hrs. MUST LAST 30 DAYS 1 tablet as needed May, 28 days Active RESULTS No Results PROCEDURES [...]
--- OUTSIDE RECORDS SUMMARY | 2018-01-15 17:11 | XMS REPORT ---
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
--- OUTSIDE RECORDS SUMMARY | 2018-01-15 17:11 | XMS REPORT ---
Author Author KATIE MUÑOZ [facility] e[employer] Address Unknown Phone Unavailable Care Team Providers Care Transportation Maintenance Operator Name Role Phone KATIE MUÑOZ CP Unavailable Allergies, Adverse Reactions, Alerts Substance [...] Problem Other malaise and fatigue 780.79 Active Assessment Sinusitis 473.9 Active Problem Allergy, unspecified not elsewhere classified 995.3 Active Problem Other malignant lymphomas of lymph nodes of multiple sites 202.88 Active Medications Medication Code System Code Instructions Start Date End Date Status Dosage [place] [facility][NOTE 3] [address]-33 5-325 MG May 13, 2014 take 1 tablet by Oral route every 6 hours as needed for pain Xanax [facility][NOTE 3] [address]-57 1 MG Orally 1 1 tablet Ibuprofen [facility][NOTE 3] [address]-22 800 mg Jan 22, 2014 take 1 tablet ( 800 mg) by oral route 3 times per day with food PRN Wellbutrin XL [facility][NOTE 3] [address]-64 150 MG Orally 1 1 tablet in the morning Zithromax Z-Abilio [facility][NOTE 3] [address]-91 250 MG Orally Once a day Nov 30, 2014 Dec 05, 2014 2 tablets on the first day, then 1 tablet daily for 4 days Procedures Procedure Coding System Code Date Office Visit, Est Pt., Level 3 CPT-4 68289 Nov 30, 2014 Vital Signs Date/Time: Nov 30, 2014 Temperature 99.3 F Weight 141.0 lbs Height 64 in BMI 24.20 Index Blood Pressure Diastolic 80 mmHg Blood Pressure Systolic 100 mmHg Cardiac Monitoring Heart Rate 84 bpm Results No Known Results Summary Purpose eClinicalWorks Submission
--- OUTSIDE RECORDS SUMMARY | 2018-01-15 17:11 | XMS REPORT ---
Author Author MARTIN GUERRERO Organization [facility] Address [address] [place] [address] Care Team Providers Care Permastone Installer Name Role Phone CESAR MARTIN Unavailable PROBLEMS Type Condition ICD9-CM Code [id number] Code Onset Dates Condition Status SNOMED Code Problem Malignant lymphoma of lymph nodes C85.90 Active 571382843 Problem Lumbago with sciatica, left side M54.42 Active 822621061 Problem Pain in left knee M25.562 Active 16429704 Problem Endometrial hyperplasia N85.00 Active 527330211 Problem Carpal tunnel syndrome G56.00 Active 85676655 Problem Low back pain M54.5 Active 635958571 Problem Other inflammatory polyneuropathies G61.89 Active 266279747 ALLERGIES No Information SOCIAL HISTORY Never Assessed PLAN OF CARE VITAL SIGNS MEDICATIONS Unknown [...]
--- OUTSIDE RECORDS SUMMARY | 2018-01-15 17:11 | XMS REPORT ---
Author Author MARTIN GUERRERO [facility] Address [address] [place] [address] Care Team Providers Care Business Services Specialist Sales Name Role Phone MARTIN GUERRERO Unavailable PROBLEMS Type Condition ICD9-CM Code [id number] Code Onset Dates Condition Status SNOMED Code Problem Pain in left knee M25.562 Active 88137882 Problem Other inflammatory polyneuropathies G61.89 Active 412163587 Problem Carpal tunnel syndrome G56.00 Active 22949190 Problem Malignant lymphoma of lymph nodes C85.90 Active 610807668 Problem Low back pain M54.5 Active 257111709 Problem Endometrial hyperplasia N85.00 Active 164910528 ALLERGIES Unknown Allergies SOCIAL HISTORY No smoking Hx information available PLAN OF CARE VITAL SIGNS MEDICATIONS Unknown Medications RESULTS No Results PROCEDURES No Known procedures IMMUNIZATIONS No Known Immunizations
--- OUTSIDE RECORDS SUMMARY | 2018-01-15 17:11 | XMS REPORT ---
Author Author MARTIN GUERRERO [facility] Address [address] [place] [address] Care Team Providers Care Mgmt Specialist Name Role Phone MARTIN GUERRERO Unavailable PROBLEMS Type Condition ICD9-CM Code CUQ64-YZ Code Onset Dates Condition Status SNOMED Code Problem Pain in left knee M25.562 Active 17050881 Problem Other inflammatory polyneuropathies G61.89 Active 513666600 Problem Carpal tunnel syndrome G56.00 Active 85530134 Problem Malignant lymphoma of lymph nodes C85.90 Active 825652692 Problem Low back pain M54.5 Active 460627467 Problem Endometrial hyperplasia N85.00 Active 065070097 ALLERGIES Unknown Allergies SOCIAL HISTORY No smoking Hx information available PLAN OF CARE VITAL SIGNS MEDICATIONS Unknown Medications RESULTS No Results PROCEDURES No Known procedures IMMUNIZATIONS No Known Immunizations
--- OUTSIDE RECORDS SUMMARY | 2018-01-15 17:11 | XMS REPORT ---
Author Author JUAN DIEGO SANTOYO [employer] Address Unknown Phone Unavailable Care Team Providers Care Sample Steamer Name Role Phone JUAN DIEGO SANTOYO Unavailable Allergies, Adverse Reactions, Alerts Substance Reaction Event Type N.K.D.A. Info Not Available Non Drug Allergy Problems Problem Type Condition Code Onset Dates Condition Status Assessment Tobacco use Z72.0 Active Assessment History of breast cancer Z85.3 Active Assessment Family history of breast cancer Z80.3 Active Problem Low back pain M54.5 Active Problem Endometrial hyperplasia N85.00 Active Problem Other inflammatory polyneuropathies G61.89 Active Assessment Well woman exam Z01.419 Active Assessment Encounter for screening for malignant neoplasm of cervix Z12.4 Active Problem Carpal tunnel syndrome G56.00 Active Problem Malignant lymphoma of lymph nodes C85.90 Active Assessment Routine screening for STI (sexually transmitted infection) Z11.3 Active Assessment Thyroid enlarged E04.9 Active Assessment Dense breast tissue R92.2 Active Assessment Family history of ovarian cancer Z80.41 Active Assessment Chronic migraine G43.709 Active Assessment Breast tenderness N64.4 Active Assessment Depression, unspecified depression type F32.9 Active Assessment Other fatigue R53.83 Active Assessment Anxiety F41.9 Active Assessment History of abnormal cervical Pap smear Z87.898 Active Medications Medication Code System Code Instructions Start Date End Date Status Dosage Wellbutrin XL [facility] [address]-04 150 MG Orally 1 1 tablet in the morning [place] [facility] [address]-19 5-325 MG May 13, 2014 take 1 tablet by Oral route every 6 hours as needed for pain Ibuprofen [facility] [address]-87 800 mg Jan 22, 2014 take 1 tablet ( 800 mg) by oral route 3 times per day with food PRN Xanax [facility] [address]-19 1 MG Orally 1 1 tablet Zithromax Z-Abilio [facility] [address]-63 250 MG Orally Once a day Mar 30, 2015 Apr 04, 2015 2 tablets on the first day, then 1 tablet daily for 4 days Procedures Procedure Coding System Code Date No Charge CPT-4 59974 Mar 31, 2015 TRICHOMONAS ASSAY W/OPTIC CPT-4 55048 Mar 31, 2015 SPECIMEN HANDLING CPT-4 09107 Mar 31, 2015 Office Visit, Est Pt., Level 3 CPT-4 76962 Mar 31, 2015 Vital Signs Date/Time: Mar 31, 2015 Temperature 98.0 F Weight 143.0 lbs Height 64 in BMI 24.54 Index Blood Pressure Diastolic 70 mmHg Blood Pressure Systolic 118 mmHg Cardiac Monitoring Heart Rate 76 bpm Results No Known Results Summary Purpose eClinicalWorks Submission
--- OUTSIDE RECORDS SUMMARY | 2018-01-15 17:11 | XMS REPORT ---
Author Author MARTIN GUERRERO [facility] Address [address] [place] [address] Care Team Providers Care Hood Maker Name Role Phone CESAR MARTIN Unavailable PROBLEMS Type Condition ICD9-CM Code CYI27-NA Code Onset Dates Condition Status SNOMED Code Problem Pain in left knee M25.562 Active 28253382 Problem Other inflammatory polyneuropathies G61.89 Active 491314248 Problem Carpal tunnel syndrome G56.00 Active 43159926 Problem Malignant lymphoma of lymph nodes C85.90 Active 812982149 Problem Low back pain M54.5 Active 479475264 Problem Endometrial hyperplasia N85.00 Active 495284939 ALLERGIES Unknown Allergies SOCIAL HISTORY No smoking Hx information available PLAN OF CARE VITAL SIGNS MEDICATIONS Unknown Medications RESULTS Name Result Date Reference Range URINE DRUG SCREEN (IN HOUSE) 2016-01-25 Lot # [id number] Exp date 07/2017 Control + COCAINE Neg AMPH Neg MTD Neg THC Neg OPIATE Neg BENZO Neg PCP Neg BAR Neg OXY Positive MAMP Neg TCA Positive BUP MDMA Neg PROCEDURES Procedure Date Ordered Related Diagnosis Body Site DRUG SCREEN NON TLC DEVICES Jan 25, 2016 IMMUNIZATIONS No Known Immunizations
--- OUTSIDE RECORDS SUMMARY | 2018-01-15 17:11 | XMS REPORT ---
Author MARTIN Olguin Organization [employer] Address Unknown Phone Unavailable Care Team Providers Care Clean Up Supervisor Name Role Phone MARTIN GUERRERO CP Unavailable Allergies No Known Allergies Problems Problem Type Condition Code Onset Dates Condition Status Problem Other inflammatory polyneuropathies G61.89 Active Problem Low back pain M54.5 Active Problem Pain in left knee M25.562 Active Problem Malignant lymphoma of lymph nodes C85.90 Active Assessment Low back pain M54.5 Active Problem Endometrial hyperplasia N85.00 Active Problem Carpal tunnel syndrome G56.00 Active Medications No Known Medications Results No Known Results Summary Purpose eClinicalWorks Submission
--- OUTSIDE RECORDS SUMMARY | 2018-01-15 17:12 | XMS REPORT ---
Author Author MARTIN GUERRERO Organization [facility] [place] Address [address] [place] [address] Care Team Providers Care Media Aid Name Role Phone MARTIN GUERRERO Unavailable PROBLEMS Type Condition ICD9-CM Code [id number] Code Onset Dates Condition Status SNOMED Code Problem Malignant lymphoma of lymph nodes C85.90 Active 314388535 Problem Other inflammatory polyneuropathies G61.89 Active 631206744 Problem Carpal tunnel syndrome G56.00 Active 05257714 Problem Other hyperlipidemia E78.4 Active 67594569 Problem Thyroid nodule E04.1 Active 724647508 Problem Endometrial hyperplasia N85.00 Active 561721821 Problem Low back pain M54.5 Active 253988642 Problem Lumbago with sciatica, left side M54.42 Active 687725009 Problem Pain in left knee M25.562 Active [id number] ALLERGIES No Information ENCOUNTERS Encounter Location Date Diagnosis [facility] [place] [address] [address]- [address] Jun, Well woman exam (no gynecological exam) Z00.00 ; Thyroid nodule E04.1 ; Weight gain R63.5 ; Other hyperlipidemia E78.4 and Excessive cerumen in both ear canals H61.23 [facility] [place] [id number] [place] [address] 24367- 2723 Jan, Low back pain M54.5 [facility] [place] [id number] [place] [address] 00424- 4180 Jan, [facility] [address] [address] -[address] Nov, Abscess L02.91 [facility] [place] [address] 05336- 2612 Nov, Low back pain M54.5 [facility] [place] [address] [address] Oct, Lumbago with sciatica, left side M54.42 [facility] [id number] [place] [address] [id number] Oct, [facility] [place] [id number] [place] [address] 90475- 2259 Oct, Carpal tunnel syndrome G56.00 [facility] [id number] [place] [address] [id number] Sep, Dental examination Z01.20 [facility] [place] [id number] [place] [address] 27427- 1391 Aug, Carpal tunnel syndrome G56.00 [facility] [place] [id number] [place] [address] 13820- 1241 July, [facility] [place] [id number] [place] [address] 69391- 7768 July, [facility] [place] [id number] [place] [address] 20298- 4206 July, Carpal tunnel syndrome G56.00 [facility] [place] [id number] [place] [address] 54099- 1941 May, Carpal tunnel syndrome G56.00 and Cervical neuritis M54.12 [facility] [place] [id number] [place] [address] 63185- 8238 May, [facility] [place] [id number] [place] [address] 88141- 0536 Mar, [facility] [place] [id number] [place] [address] 48733- 5036 Feb, [facility] [place] [id number] [place] [address] 06902- 1696 Feb, [facility] [place] [id number] [place] [address] 04139- 0872 Feb, Low back pain M54.5 and Pain in left knee M25.562 [facility] [place] [id number] [place] [address] 09116- 8002 Feb, Low back pain M54.5 [facility] [place] [id number] [place] [address] 02489- 8092 Jan, Low back pain M54.5 [facility] [place] [id number] [place] [address] 64973- 3032 Jan, Low back pain M54.5 [facility] [place] [id number] [place] [address] 77133- 7667 Jan, [facility] [place] [id number] [place] [address] 08166- 1407 Jan, [facility] [place] [id number] [place] [address] 10485- 3040 Jan, [facility] [place] [id number] [place] [address] 27459- 4258 Dec, Throat mass R22.1 [facility] [place] [id number] [place] [address] 73745- 7806 Dec, Throat mass R22.1 [facility] [place] [id number] [place] [address] 15871- 8868 Dec, Mass in neck R22.1 [facility] [place] [id number] [place] [address] 59127- 9860 Dec, [facility] [place] [address] [place] [address] 48609- 2681 Dec, Cough R05 and Encounter for immunization Z23 [facility] [place] [id number] [place] [address] 25266- 3584 Nov, Upper respiratory tract infection, unspecified type J06.9 [facility] [place] [id number] [place] [address] 51463- 9073 Nov, [facility] [place] [address] [address]- 1596 Nov, [facility] [place] [id number] [place] [address] 38562- 8506 Nov, Chondromalacia, left knee M94.262 [facility] [place] [id number] [address] 2546 Oct, [facility] [place] [id number] [place] [address] 47674 2546 Oct, [facility] [place] [id number] [place] [address] 54174 254 Oct, Chondromalacia, left knee M94.262 [facility] [place] [id number] [place] [address] 13743 2546 Sep, [facility] [place] [id number] [place] [address] 02696- 9539 Aug, [facility] [place] [id number] [place] [address] 66900- 2082 Aug, [facility] [place] [id number] [place] [address] 78933- 9446 July, Chondromalacia, left knee M94.262 [facility] [place] [address] [address]- 5656 July, [facility] [place] [id number] [place] [address] 71877 2546 July, [facility] [place] [address] [address] 2546 Jun, Abscess L02.91 and Vaginal bleeding between periods N92.0 [facility] [place] [id number] [place] [address] 97345- 9596 Jun, [facility] [place] [address] [address] 2546 Jun, Pain in left knee M25.562 and Other chronic pain G89.29 [facility] [place] [address] [address]- 0073 Jun, Pain in left knee M25.562 and Other chronic pain G89.29 [facility] [place] [address] [place] [address] 13371- 8532 Jun, [place] [id number] [place] [address] 27533- 0000 Jun, Low back pain M54.5 [place] [id number] [place] [address] 73245- 2835 Jun, Pain in right knee M25.561 [place] [id number] [place] [address] 69333- 6373 Jun, [place] [id number] [place] [address] 44565- 6697 Jun, Low back pain M54.5 [place] [id number] [place] [address] 07525- 9522 May, Cervical neuritis M54.12 ; Thoracic neuritis M54.14 and Pain in right knee M25.561 [place] [id number] [place] [address] 29936- 8797 May, internet developer use of drug Z79.899 [place] [address] [place] [address] 72343- 4561 Apr, Well woman exam Z01.419 and Thyroid enlarged E04.9 [place] [address] [place] [address] 57331- 1147 Apr, internet developer use of drug Z79.899 ; Low back pain M54.5 and Endometrial hyperplasia N85.00 [place] [address] [place] [address] 61944- 2324 Mar, Well woman exam Z01.419 ; Encounter [...] cancer Z80.41 and Dense breast tissue R92.2 [address] [address] 40667- 7792 Mar, Acute sinusitis, recurrence not specified, unspecified location J01.90 [address] [address] 19809- 8276 Mar, [place] [id number] [place] [address] 58801- 6296 Feb, [place] [address] 69706- 3666 Dec, [place] [id number] [place] [address] 07276- 8371 Nov, [place] [id number] [place] [address] 43450- 4521 Nov, Sinusitis 473.9 [place] [id number] [place] [address] 75466- 2663 Oct, [place] [id number] [place] [address] 00386- 0140 Sep, Lumbago 724.2 [place] [id number] [place] [address] 29036- 9843 Sep, Upper respiratory infection 465.9 [place] [id number] [place] [address] 42451- 2522 Aug, Lumbago 724.2 [place] [id number] [place] [address] 81825- 9035 Aug, Abscess 682.9 [facility] [place] [address] [address]- 6004 11 Aug, 2014 Abscess and cellulitis 682.9 [facility] [place] [id number] [place] [address] 24481- 0659 08 Aug, 2014 Insect bite of buttock, infected 911.9 [facility] [place] [address] [place] [address] 69312- 4040 July, Lumbago 724.2 [facility] [place] [address] [place] [address] 75480- 6376 July, [facility] [place] [id number] [place] [address] 47041- 6754 July, Routine gynecological examination V72.31 ; Screen for STD ( sexually transmitted disease) V74.5 ; Routine physicl lab exam V72.62 and Vulvar abscess 616.4 [facility] [place] [id number] [place] [address] 31093- 9471 July, [facility] [place] [id number] [place] [address] 58411- 8884 Jun, [facility] [place] [address] [place] [address] 55866- 4666 Jun, [facility] [place] [address] [address]- 3596 May, [facility] [place] [address] [place] [address] 84214- 7545 May, [facility] [place] [address] [place] [address] 29810- 4377 May, [facility] [place] [id number] [place] [address] 93334- 8992 May, [facility] [place] [address] [address]- 3729 Apr, [facility] [place] [id number] [place] [address] 69809- 8607 Apr, 2014 [facility] [place] [facility] [address] [id number] [place] [address]- 9846 Apr, 2014 [facility] [place] [facility] [address] [id number] [place] [address]- 2056 Apr, 2014 [facility] [place] [facility] [address] [id number] [place] [address]- 0996 Apr, 2014 [facility] [place] [facility] [address] [id number] [place] [address]- 0074 Apr, 2014 [facility] [place] [facility] [address] [id number] [place] 8192 04 Apr, 2014 [facility] [place] [facility] [address] [facility] [id number] [place] [address]- 2693 Apr, 2014 [facility] [place] [facility] [address] [facility] [id number] [place] [address]- 4120 Apr, 2014 [facility] [place] [facility] [address] [facility] [id number] [place] [address]- 7206 Apr, 2014 [facility] [place] [facility] [address] [facility] [id number] [place] [address]- 7097 Mar, [facility] [place] [facility] [address] [facility] [id number] [place] [address]- 1479 Mar, [facility] [place] [facility] [address] [facility] [id number] [place] [address]- 5364 Feb, [facility] [place] [facility] [address] [id number] [place] [address]- 3661 Feb, [facility] [place] [facility] [address] [id number] [place] 4942 15 Feb, 2014 [facility] [place] [facility] [address] [facility] [id number] [place] 6722 15 Feb, 2014 [facility] [place] [facility] [address] [facility] [id number] [place] 9453 Feb, [facility] [place] [facility] [address] [id number] [place] [address]- 2227 Feb, [facility] [place] [facility] [address] [id number] [place] [address]- 0151 Jan, [facility] [place] [facility] [address] [id number] [place] [address]- 8022 Jan, [facility] [place] [facility] [address] [id number] [place] [address]- 8449 Jan, [facility] [place] [facility] [address] [id number] [place] [address]- 9535 Jan, [facility] [place] [facility] [address] [id number] [place] [address]- 0508 Jan, [facility] [place] [facility] [address] [id number] [place] [address]- 0646 Jan, [facility] [place] [facility] [address] [id number] [place] [address]- 4788 Dec, [facility] [place] [facility] [address] [id number] [place] [address]- 7616 Dec, [facility] [place] [facility] [address] [id number] [address]- 4357 Dec, [facility] [place] [facility] [address] [id number] [address]- 2744 31 Dec, 2013 [facility] [place] [facility] [address] [id number] [place] [address]- 9804 15 Dec, 2013 [facility] [place] [facility] [address] [id number] [place] [address]- 2785 15 Dec, 2013 [facility] [place] [facility] [address] [id number] [address]- 1792 13 Dec, 2013 [facility] [place] [facility] [address] [id number] [place] [address]- 4866 Dec, [facility] [place] [facility] [address] [id number] [place] [address]- 7180 Nov, [facility] [place] [facility] [address] [id number] [place] [address]- 1497 Nov, [facility] [place] [facility] [address] [id number] [place] [address]- 3010 Nov, [facility] [place] [facility] [address] [id number] [place] [address]- 0771 Nov, [facility] [place] [facility] [address] [id number] [place] [address]- 8376 Nov, [facility] [place] [facility] [address] [id number] [place] [address]- 9157 Oct, [facility] [place] [facility] [address] [id number] [place] [address]- 9300 Oct, [facility] [place] [facility] [address] [id number] [place] [address]- 9018 Oct, [facility] [place] [facility] [address] [id number] [place] [address]- 2383 Oct, [facility] [place] [facility] [address] [id number] [place] [address]- 4468 Oct, [facility] [place] [facility] [address] [id number] [place] [address]- 0618 Sep, [facility] [place] [facility] [address] [id number] [place] [address]- 2719 Sep, [facility] [place] [facility] [address] [id number] [place] [address]- 6966 Sep, [facility] [place] [facility] [address] [id number] [place] [address]- 0142 Sep, [facility] [place] [facility] [address] [id number] [place] [address]- 3820 Sep, [facility] [place] [facility] [address] [id number] [place] [address]- 7646 Sep, [facility] [place] [facility] [address] [id number] [place] [address]- 9448 Aug, [facility] [place] [facility] [address] [id number] [place] [address]- 3101 Aug, [facility] [place] [facility] [address] [id number] [place] [address]- 2701 Aug, [facility] [place] [facility] [address] [id number] [place] [address]- 0174 Aug, [facility] [place] [facility] [address] [id number] [place] [address]- 7034 Aug, [facility] [place] [facility] [address] [id number] [place] [address]- 1744 Aug, [facility] [place] [facility] [address] [id number] [place] [address]- 0254 Jun, [facility] [place] [facility] [address] [id number] [place] [address]- 9552 Jun, [facility] [place] [facility] [address] [id number] [place] [address]- 2442 May, [facility] [place] [facility] [address] [id number] [place] [address]- 5076 May, [facility] [place] [facility] [address] [facility] [id number] [place] [address]- 1599 Apr, [facility] [place] [facility] [address] [id number] [place] [address]- 3466 Apr, [facility] [place] [facility] [address] [id number] [place] [address]- 2723 Apr, [facility] [place] [facility] [address] [id number] [place] [address] Apr, [facility] [place] [facility] [address] [id number] [place] [address] Mar, [facility] [place] [facility] [address] [id number] [place] [address] Mar, [facility] [place] [facility] [address] [id number] [place] [address] Mar, [facility] [place] [facility] [address] [id number] [place] [address] Mar, [facility] [place] [facility] [address] [id number] [place] [address] Mar, [facility] [place] [facility] [address] [id number] [place] [address] Mar, [facility] [place] [facility] [address] [id number] [place] [address] Mar, [facility] [place] [facility] [address] [id number] [place] [address] Mar, [facility] [place] [facility] [address] [id number] [place] [address] Mar, [facility] [place] [facility] [address] [id number] [place] [address] Mar, [facility] [place] [facility] [address] [id number] [place] [address] Dec, [facility] [place] [facility] [address] [id number] [place] [address] Dec, [facility] [place] [facility] [address] [id number] [place] [address] Dec, [facility] [place] [facility] [address] [id number] [place] [address] Dec, [facility] [place] [facility] [address] [id number] [place] [address] Dec, [facility] [place] [facility] [address] [id number] [place] [address] Dec, [facility] [place] [facility] [address] [id number] [place] [address] Nov, [facility] [place] [facility] [address] [id number] [place] [address] Jun, [facility] [address] [id number] [place] [address] Jun, [facility] [address] [id number] [place] [address] Jun, [facility] [address] [id number] [place] [address] May, [facility] [address] [id number] [place] [address] May, [facility] [address] [id number] [place] [address] Apr, [facility] [address] [id number] [place] [address] Mar, [facility] [address] [id number] [place] [address] Mar, [facility] [address] [id number] [place] [address] Mar, [facility] [address] [id number] [place] [address] Mar, [facility] [address] [id number] [place] [address] Mar, [facility] [address] [id number] [place] [address] Mar, [facility] [address] [id number] [place] [address] Mar, [facility] [place] [facility] [address] [id number] [place] [address] Mar, [facility] [address] [id number] [place] [address] Mar, [facility] [address] [id number] [place] [address] Mar, [facility] [place] [address] [facility] [id number] [place] [address] Feb, [facility] [place] [address] [id number] [place] [address] Feb, [facility] [place] [address] [facility] [id number] [place] [address] Feb, [facility] [place] [address] [id number] [place] [address] Mar, [facility] [place] [address] [facility] [id number] [place] [address] Feb, [facility] [place] [address] [facility] [id number] [place] [address] Feb, IMMUNIZATIONS No Known Immunizations SOCIAL HISTORY Never Assessed REASON FOR VISIT Controlled Refill Request PLAN OF CARE VITAL SIGNS MEDICATIONS Medication Instructions Dosage Frequency Start Date End Date Duration Status [place] 7.5-325 MG Orally every 6 hrs. 1 tablet as needed Oct, 28 days Active RESULTS No Results PROCEDURES [...]
--- OUTSIDE RECORDS SUMMARY | 2018-01-15 17:12 | XMS REPORT ---
Author Author MIREYA MALCOLM [facility] Address [address] [place] [address] Care Team Providers Care Looping Inspector Name Role Phone MIREYA MALCOLM Unavailable PROBLEMS Type Condition ICD9-CM Code QMP73-EG Code Onset Dates Condition Status SNOMED Code Assessment Upper respiratory tract infection, unspecified type J06.9 Nov, Active 08799942 Problem Pain in left knee M25.562 Active 80812175 Problem Other inflammatory polyneuropathies G61.89 Active 885401654 Problem Carpal tunnel syndrome G56.00 Active 60913238 Problem Malignant lymphoma of lymph nodes C85.90 Active 780912988 Problem Low back pain M54.5 Active 025264083 Problem Endometrial hyperplasia N85.00 Active 132801170 ALLERGIES Substance Reaction Event Type Date Status N.K.D.A. Unknown Non Drug Allergy Nov, Unknown SOCIAL HISTORY No smoking Hx information available PLAN OF CARE VITAL SIGNS Height 64 in 2015-11-23 Weight 150.2 lbs 2015-11-23 Heart Rate 80 bpm 2015-11-23 Respiratory Rate 18 2015-11-23 BMI 25.78 kg/m2 2015-11-23 Blood pressure systolic 128 mmHg 2015-11-23 Blood pressure diastolic 78 mmHg 2015-11-23 MEDICATIONS Medication Instructions Dosage Frequency Start Date End Date Duration Status Zithromax 250 MG Orally Once a day 2 tablets on the first day, then 1 tablet daily for 4 days 24h Nov, Nov, 5 day(s) Active Promethazine-Codeine 6.25-10 MG/5ML Orally q 4 h, prn cough 1-2 tsp Nov, Active Dalton 5-325 MG 1 tablet as needed May, Active Xanax 1 MG Orally Twice a day as needed 1 tablet Active Wellbutrin XL 150 MG Orally 1 1 tablet in the morning Active RESULTS No Results PROCEDURES Procedure Date Ordered Related Diagnosis Body Site Office Visit, Est Pt., Level 2 Nov 23, 2015 IMMUNIZATIONS No Known Immunizations
--- OUTSIDE RECORDS SUMMARY | 2018-01-15 17:12 | XMS REPORT ---
Author Author MARTIN GUERRERO Organization [facility] Address [address] [place] [address] Care Team Providers Care Mobile Security Architect Name Role Phone MARTIN GUERRERO Unavailable PROBLEMS Type Condition ICD9-CM Code YNA53-JL Code Onset Dates Condition Status SNOMED Code Problem Carpal tunnel syndrome G56.00 Active 65652913 Problem Other inflammatory polyneuropathies G61.89 Active 570842730 Problem Acquired hypothyroidism E03.9 Active 133253217 Problem Malignant lymphoma of lymph nodes C85.90 Active 943807950 Problem Other hyperlipidemia E78.4 Active 09331155 Problem Thyroid nodule E04.1 Active 891296245 Problem Endometrial hyperplasia N85.00 Active 671094853 Problem Low back pain M54.5 Active 491446609 Problem Lumbago with sciatica, left side M54.42 Active 463787537 Problem Pain in left knee M25.562 Active 39958306 ALLERGIES No Information ENCOUNTERS Encounter Location Date Diagnosis [facility] [id number] [place] [address] 21177- 6718 Jun, Thyroid nodule E04.1 [facility] [id number] [place] [address] 44383- 0347 Jun, Well woman exam (no gynecological exam) Z00.00 ; Thyroid nodule E04.1 ; Weight gain R63.5 ; Other hyperlipidemia E78.4 and Excessive cerumen in both ear canals H61.23 [facility] [id number] [place] [address] 27734- 6002 Jan, Low back pain M54.5 [facility] [id number] [place] [address] 85438- 2195 Jan, [facility] [id number] [place] [address] 90476 -2824 Nov, Abscess L02.91 [facility] [address] [place] [address] 21247- 3769 Nov, Low back pain M54.5 [facility] [id number] [place] [address] 15023- 2820 Oct, Lumbago with sciatica, left side M54.42 [facility] [place] [facility] [id number] [place] [address] [id number] Oct, [facility] [id number] [place] [address] 42911- 7586 Oct, Carpal tunnel syndrome G56.00 [facility] [place] [facility] [id number] [place] [address] [id number] Sep, Dental examination Z01.20 [facility] [id number] [place] [address] 37306- 0663 Aug, Carpal tunnel syndrome G56.00 [facility] [id number] [place] [address] 49515- 6922 July, [facility] [id number] [place] [address] 61033- 7124 July, [facility] [id number] [place] [address] 69821- 6627 July, Carpal tunnel syndrome G56.00 [facility] [id number] [place] [address] 54300- 5151 May, Carpal tunnel syndrome G56.00 and Cervical neuritis M54.12 [facility] [id number] [place] [address] 50987- 8369 May, [facility] [id number] [place] [address] 35657- 2127 Mar, [facility] [id number] [place] [address] 15493- 2294 Feb, [facility] [address] [place] [address]- 0629 15 Feb, 2016 [facility] [id number] [place] [address] 33513- 2843 12 Feb, 2016 Low back pain M54.5 and Pain in left knee M25.562 [facility] [id number] [place] [address] 14711- 9405 Feb, Low back pain M54.5 [facility] [id number] [place] [address] 62608- 3723 Jan, Low back pain M54.5 [facility] [id number] [place] [address] 70225- 0018 Jan, Low back pain M54.5 [facility] [id number] [place] [address] 90896- 5756 Jan, [facility] [id number] [place] [address] 29293- 0061 Jan, [facility] [id number] [place] [address] 51413- 9827 Jan, [facility] [id number] [place] [address] 07250- 0113 Dec, Throat mass R22.1 [facility] [address] [place] [address] 33498- 7606 Dec, Throat mass R22.1 [facility] [id number] [place] [address] 12837- 8010 Dec, Mass in neck R22.1 [facility] [address] [place] [address] 46146- 1861 Dec, [facility] [id number] [place] [address] 94998- 1406 Dec, Cough R05 and Encounter for immunization Z23 [facility] [id number] [place] [address] 71055- 1139 Nov, Upper respiratory tract infection, unspecified type J06.9 [facility] [address] [address] Nov, [facility] [address] [address]- 8626 Nov, [facility] [address] [place] [address] 05009- 8459 Nov, Chondromalacia, left knee M94.262 [facility] [address] [place] [address] 31714- 7821 Oct, [facility] [id number] [place] [address] 01405- 0147 Oct, [facility] [id number] [place] [address] 77294- 4448 Oct, Chondromalacia, left knee M94.262 [facility] [id number] [place] [address] 83704- 5780 Sep, [facility] [address] [address]- 3953 Aug, [facility] [address] [place] [address] 05556- 1325 Aug, [facility] [address] [address]- 6490 July, Chondromalacia, left knee M94.262 [facility] [address] [address]- 9430 July, [facility] [address] [address]- 3230 July, [facility] [address] [place] [address]- 8520 Jun, Abscess L02.91 and Vaginal bleeding between periods N92.0 [facility] [id number] [place] [address] 63348- 7420 Jun, [facility] [id number] [place] [address] 33133- 8159 Jun, Pain in left knee M25.562 and Other chronic pain G89.29 [facility] [id number] [place] [address] 54929- 8749 Jun, Pain in left knee M25.562 and Other chronic pain G89.29 [place] [address] 68574- 1164 Jun, [place] [id number] [place] [address] 04810- 9481 Jun, Low back pain M54.5 [place] [id number] [place] [address] 30238- 5956 Jun, Pain in right knee M25.561 [address] [address] 78724- 4713 Jun, [place] [id number] [place] [address] 68024- 6492 Jun, Low back pain M54.5 [address] [address] 20826- 4078 May, Cervical neuritis M54.12 ; Thoracic neuritis M54.14 and Pain in right knee M25.561 [place] [id number] [place] [address] 60479- 1301 May, 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 [place] [id number] [place] [address] 05846- 8005 Apr, Well woman exam Z01.419 and Thyroid enlarged E04.9 [place] [id number] [place] [address] 24066- 0373 Apr, 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 ; Low back pain M54.5 and Endometrial hyperplasia N85.00 [place] [address] [place] [address]- 6621 27 Mar, 2015 Well woman exam Z01.419 ; Encounter for [...] cancer Z80.41 and Dense breast tissue R92.2 [place] [address] 60984- 3974 Mar, Acute sinusitis, recurrence not specified, unspecified location J01.90 [address] [address] 48062- 3450 Mar, [place] [id number] [place] [address] 63882- 0615 Feb, [place] [id number] [place] [address] 27443- 7281 Dec, [address] [id number] [place] [address] 32881- 9227 Nov, [address] [id number] [place] [address] 72972- 2961 Nov, Sinusitis 473.9 [address] [id number] [place] [address] 66992- 6328 Oct, [place] [address] 09298- 9969 Sep, Lumbago 724.2 [address] [id number] [place] [address] 53528- 5810 Sep, Upper respiratory infection 465.9 [address] [address] 74842- 2352 Aug, Lumbago 724.2 [facility] [address] [address]- 9880 Aug, Abscess 682.9 [facility] [address] [place] [address] 28065- 8737 Aug, Abscess and cellulitis 682.9 [facility] [address] [place] [address] 76005- 8130 Aug, Insect bite of buttock, infected 911.9 [facility] [address] [place] [address] 14616- 4327 July, Lumbago 724.2 [facility] [id number] [place] [address] 92334- 6475 July, [facility] [address] [place] [address] 67376- 0501 July, Routine gynecological examination V72.31 ; Screen for STD ( sexually transmitted disease) V74.5 ; Routine physicl lab exam V72.62 and Vulvar abscess 616.4 [facility] [address] [address]- 4121 July, [facility] [address] [address]- 8912 Jun, [facility] [address] [address]- 1984 Jun, [facility] [address] [address]- 7125 May, [facility] [address] [address]- 6244 May, [facility] [address] [address]- 0155 May, [facility] [address] [address]- 9592 May, [facility] [place] [facility] [address] [id number] [place] [address]- 3692 Apr, 2014 [facility] [place] [facility] [address] [id number] [place] [address]- 2058 Apr, 2014 [facility] [place] [facility] [address] [id number] [place] [address]- 6898 Apr, 2014 [facility] [place] [facility] [address] [id number] [place] [address]- 1646 Apr, 2014 [facility] [place] [facility] [address] [id number] [place] [address]- 5700 Apr, 2014 [facility] [place] [facility] [address] [id number] [place] [address]- 0753 Apr, 2014 [facility] [place] [facility] [address] [facility] [id number] [place] [address]- 9384 Apr, 2014 [facility] [place] [facility] [address] [id number] [place] [address]- 5441 Apr, 2014 [facility] [place] [facility] [address] [id number] [place] [address]- 3524 Apr, [facility] [place] [facility] [address] [facility] [id number] [place] [address]- 7287 Apr, [facility] [place] [facility] [address] [facility] [id number] [place] [address]- 1368 Mar, [facility] [place] [facility] [address] [id number] [place] [address]- 4401 Mar, [facility] [place] [facility] [address] [id number] [place] [address]- 7699 Feb, [facility] [place] [facility] [address] [id number] [place] [address]- 6494 Feb, [facility] [place] [facility] [address] [facility] [id number] [place] [address]- 4475 Feb, [facility] [place] [facility] [address] [id number] [place] [address]- 3089 15 Feb, 2014 [facility] [place] [facility] [address] [id number] [place] [address]- 2498 Feb, [facility] [place] [facility] [address] [id number] [place] [address]- 3682 Feb, [facility] [place] [facility] [address] [id number] [place] [address]- 9453 Jan, [facility] [place] [facility] [address] [id number] [place] [address]- 3109 Jan, [facility] [place] [facility] [address] [id number] [place] [address]- 1505 Jan, [facility] [place] [facility] [address] [id number] [place] [address]- 2391 Jan, [facility] [place] [facility] [address] [id number] [place] [address]- 4038 Jan, [facility] [place] [facility] [address] [id number] [place] [address]- 4153 Jan, [facility] [place] [facility] [address] [id number] [place] [address]- 9627 31 Dec, 2013 [facility] [place] [facility] [address] [id number] [place] [address]- 9215 31 Dec, 2013 [facility] [place] [facility] [address] [id number] [place] [address]- 7389 31 Dec, 2013 [facility] [place] [facility] [address] [id number] [place] [address]- 1158 31 Dec, 2013 [facility] [place] [facility] [address] [id number] [place] [address]- 3040 15 Dec, 2013 [facility] [place] [facility] [address] [id number] [place] [address]- 5168 15 Dec, 2013 [facility] [place] [facility] [address] [id number] [place] [address]- 7290 13 Dec, 2013 [facility] [place] [facility] [address] [id number] [place] [address]- 6226 Dec, [facility] [place] [facility] [address] [id number] [place] [address]- 1905 Nov, [facility] [place] [facility] [address] [id number] [place] [address]- 2611 Nov, [facility] [place] [facility] [address] [id number] [place] [address]- 6013 Nov, [facility] [place] [facility] [address] [id number] [place] [address]- 3599 Nov, [facility] [place] [facility] [address] [id number] [place] [address]- 8093 Nov, [facility] [place] [facility] [address] [id number] [place] [address]- 0953 Oct, [facility] [place] [facility] [address] [id number] [place] [address]- 9417 Oct, [facility] [place] [facility] [address] [id number] [place] [address]- 7231 Oct, [facility] [place] [facility] [address] [id number] [place] [address]- 4984 Oct, [facility] [place] [facility] [address] [id number] [place] [address]- 5766 Oct, [facility] [place] [facility] [address] [id number] [address]- 7099 Sep, [facility] [place] [facility] [address] [id number] [place] [address]- 5330 Sep, [facility] [place] [facility] [address] [id number] [place] [address]- 1879 Sep, [facility] [place] [facility] [address] [id number] [place] 2488 Sep, [facility] [place] [facility] [address] [id number] [address]- 2252 Sep, [facility] [place] [facility] [address] [id number] [place] [address]- 1334 Sep, [facility] [place] [facility] [address] [id number] [place] [address]- 2390 Aug, [facility] [place] [facility] [address] [id number] [place] [address]- 0907 Aug, [facility] [place] [facility] [address] [id number] [place] [address]- 9581 Aug, [facility] [place] [facility] [address] [id number] [place] [address]- 0337 Aug, [facility] [place] [facility] [address] [id number] [place] [address]- 0130 Aug, [facility] [place] [facility] [address] [facility] [id number] [place] [address]- 3056 Aug, [facility] [place] [facility] [address] [facility] [id number] [place] [address]- 3508 Jun, [facility] [place] [facility] [address] [id number] [place] [address]- 6385 Jun, [facility] [place] [facility] [address] [facility] [id number] [place] [address]- 5795 May, [facility] [place] [facility] [address] [id number] [place] [address]- 5333 May, [facility] [place] [facility] [address] [facility] [id number] [place] [address]- 0286 Apr, [facility] [place] [facility] [address] [id number] [place] [address]- 0241 Apr, [facility] [place] [facility] [address] [id number] [place] [address]- 1063 Apr, [facility] [place] [facility] [address] [facility] [id number] [place] [address]- 3076 Apr, [facility] [place] [facility] [address] [id number] [place] [address]- 3294 Mar, [facility] [place] [facility] [address] [id number] [place] [address]- 4687 Mar, [facility] [place] [facility] [address] [id number] [place] [address]- 8235 Mar, [facility] [place] [facility] [address] [id number] [place] [address]- 3147 Mar, [facility] [place] [facility] [address] [id number] [place] [address]- 1118 Mar, [facility] [place] [facility] [address] [id number] [place] [address]- 9547 Mar, [facility] [place] [facility] [address] [id number] [place] [address]- 4659 Mar, [facility] [place] [facility] [address] [id number] [place] [address]- 6810 Mar, [facility] [place] [facility] [address] [id number] [place] [address]- 9054 Mar, [facility] [place] [facility] [address] [id number] [place] [address]- 9443 Mar, [facility] [place] [facility] [address] [id number] [place] [address]- 5614 Dec, [facility] [place] [facility] [address] [id number] [place] [address]- 7985 Dec, [facility] [place] [facility] [address] [id number] [place] [address] Dec, [facility] [place] [facility] [address] [id number] [place] [address] Dec, [facility] [place] [facility] [address] [id number] [place] [address] Dec, [facility] [place] [facility] [address] [id number] [place] [address] Dec, [facility] [address] [id number] [place] [address] Nov, [facility] [place] [facility] [address] [id number] [place] [address] Jun, [facility] [place] [facility] [address] [id number] [place] [address] Jun, [facility] [place] [facility] [address] [id number] [place] [address] Jun, [facility] [address] [id number] [place] [address] May, [facility] [address] [id number] [place] [address] May, [facility] [address] [id number] [place] [address] Apr, [facility] [place] [facility] [address] [id number] [place] [address] Mar, [facility] [address] [id number] [place] [address] Mar, [facility] [place] [facility] [address] [id number] [place] [address] Mar, [facility] [place] [facility] [address] [id number], [place] [address] Mar, [facility] [place] [facility] [address] [id number], [place] [address] Mar, [facility] [place] [facility] [address] [id number] [place] [address] Mar, [facility] [place] [facility] [address] [id number] [place] [address] Mar, [facility] [place] [facility] [address] [id number] [place] [address] Mar, [facility] [place] [facility] [address] [id number] [address] Mar, [facility] [address] [id number] [address] Mar, [facility] [id number] [address] Feb, [facility] [id number] [address] Feb, [facility] [id number] [address] Feb, [facility] [id number] [address] Mar, [facility] [id number] [address] Feb, [facility] [id number], [place] [address] Feb, IMMUNIZATIONS No Known Immunizations SOCIAL HISTORY Never Assessed REASON FOR VISIT Controlled Refill Request PLAN OF CARE VITAL SIGNS MEDICATIONS Medication Instructions Dosage Frequency Start Date End Date Duration Status Golden 7.5-325 MG Orally every 6 hrs. 1 tablet as needed Nov, 28 days Active RESULTS No Results PROCEDURES [...]
--- OUTSIDE RECORDS SUMMARY | 2018-01-15 17:12 | XMS REPORT ---
Author Author MARTIN GUERRERO [facility] Address [address] [place] [address] Care Team Providers Care Coding Consultant Name Role Phone MRATIN GUERRERO Unavailable PROBLEMS Type Condition ICD9-CM Code [id number] Code Onset Dates Condition Status SNOMED Code Problem Pain in left knee M25.562 Active 12750345 Problem Other inflammatory polyneuropathies G61.89 Active 392708038 Problem Carpal tunnel syndrome G56.00 Active 38229728 Problem Malignant lymphoma of lymph nodes C85.90 Active 325691847 Problem Low back pain M54.5 Active 831899007 Problem Endometrial hyperplasia N85.00 Active 233290949 ALLERGIES Unknown Allergies SOCIAL HISTORY No smoking Hx information available PLAN OF CARE VITAL SIGNS MEDICATIONS Medication Instructions Dosage Frequency Start Date End Date Duration Status Houck 5-325 MG 1 tablet as needed May, Active RESULTS No Results PROCEDURES No Known procedures IMMUNIZATIONS No Known Immunizations
--- OUTSIDE RECORDS SUMMARY | 2018-01-15 17:12 | XMS REPORT ---
Author MARTIN Olguin Organization [employer] Address Unknown Phone Unavailable Care Team Providers Care Towel Distributor Name Role Phone MARTIN GUERRERO CP Unavailable Allergies No Known Allergies Problems Problem Type Condition Code Onset Dates Condition Status Problem Other inflammatory polyneuropathies G61.89 Active Problem Low back pain M54.5 Active Problem Pain in left knee M25.562 Active Problem Malignant lymphoma of lymph nodes C85.90 Active Assessment Throat mass R22.1 Active Problem Endometrial hyperplasia N85.00 Active Problem Carpal tunnel syndrome G56.00 Active Medications No Known Medications Procedures Procedure Coding System Code Date COMPLETE CBC W/AUTO DIFF WBC CPT-4 75650 Dec 28, 2015 VENIPUNCT, ROUTINE* CPT-4 69737 Dec 28, 2015 ASSAY THYROID STIM HORMONE CPT-4 99374 Dec 28, 2015 Results No Known Results Summary Purpose [employer] Submission
--- OUTSIDE RECORDS SUMMARY | 2018-01-15 17:12 | XMS REPORT ---
Author Author MARTIN GUERRERO Organization [facility] Address [address] [place] [address] Care Team Providers Care Equipment Installation Professional Name Role Phone MARTIN GUERRERO Unavailable PROBLEMS Type Condition ICD9-CM Code CTS19-FA Code Onset Dates Condition Status SNOMED Code Problem Malignant lymphoma of lymph nodes C85.90 Active 816083028 Problem Lumbago with sciatica, left side M54.42 Active 809527076 Problem Pain in left knee M25.562 Active 28100394 Problem Endometrial hyperplasia N85.00 Active 235166123 Problem Carpal tunnel syndrome G56.00 Active 78911684 Problem Low back pain M54.5 Active 475953484 Problem Other inflammatory polyneuropathies G61.89 Active 760876877 ALLERGIES No Information SOCIAL HISTORY Never Assessed PLAN OF CARE VITAL SIGNS MEDICATIONS Medication Instructions Dosage Frequency Start Date End Date Duration Status Clifford 7.5-325 MG Orally every 6 hrs. 1 tablet as needed Aug, 28 days Active RESULTS No Results PROCEDURES [...]
--- OUTSIDE RECORDS SUMMARY | 2018-01-15 17:13 | XMS REPORT ---
Author Author MARTIN GUERRERO Organization [facility] Address [address] [place] [address] Care Team Providers Care Assistant Store Manager Name Role Phone MARTIN GUERRERO Unavailable PROBLEMS Type Condition ICD9-CM Code MQP49-QF Code Onset Dates Condition Status SNOMED Code Problem Carpal tunnel syndrome G56.00 Active 48428255 Problem Other inflammatory polyneuropathies G61.89 Active 450340475 Problem Acquired hypothyroidism E03.9 Active 820260591 Problem Malignant lymphoma of lymph nodes C85.90 Active 163361867 Problem Other hyperlipidemia E78.4 Active 77900530 Problem Thyroid nodule E04.1 Active 683049194 Problem Endometrial hyperplasia N85.00 Active 452028645 Problem Low back pain M54.5 Active 369229530 Problem Lumbago with sciatica, left side M54.42 Active 928004627 Problem Pain in left knee M25.562 Active 88535152 ALLERGIES No Information ENCOUNTERS Encounter Location Date Diagnosis [place] [id number] [place] [address] 35115- 9776 July, Elevated TSH R94.6 [place] [id number] [place] [address] 58779- 4127 17 Jun, 2017 Thyroid nodule E04.1 [place] [id number] [place] [address] 80672- 6566 Jun, Well woman exam (no gynecological exam) Z00.00 ; Thyroid nodule E04.1 ; Weight gain R63.5 ; Other hyperlipidemia E78.4 and Excessive cerumen in both ear canals H61.23 [place] [id number] [place] [address] 56582- 6268 Jan, Low back pain M54.5 [place] [id number] [place] [address] 77766- 7613 Jan, [facility] [id number] [place] [address] 48133 -4982 Nov, Abscess L02.91 [facility] [id number] [place] [address] 01750- 5674 Nov, Low back pain M54.5 [facility] [id number] [place] [address] 23859- 8338 Oct, Lumbago with sciatica, left side M54.42 [facility] [id number] [place] [address] [phone] Oct, [facility] [id number] [place] [address] 63891- 1434 Oct, Carpal tunnel syndrome G56.00 [facility] [id number] [place] [address] [phone] Sep, Dental examination Z01.20 [facility] [id number] [place] [address] 78663- 3696 Aug, Carpal tunnel syndrome G56.00 [facility] [id number] [place] [address] 23692- 5116 July, [facility] [id number] [place] [address] 38007- 1048 July, [facility] [id number] [place] [address] 49583- 6892 July, Carpal tunnel syndrome G56.00 [facility] [id number] [place] [address] 99925- 9455 May, Carpal tunnel syndrome G56.00 and Cervical neuritis M54.12 [facility] [id number] [place] [address] 393500- 5207 May, [facility] [id number] [place] [address] 87698- 5026 Mar, [facility] [id number] [place] [address] 64706- 9750 Feb, [facility] [id number] [place] [address] 95701- 0766 Feb, [facility] [id number] [place] [address] 93184- 5286 Feb, Low back pain M54.5 and Pain in left knee M25.562 [facility] [id number] [place] [address] 69119- 5690 Feb, Low back pain M54.5 [facility] [id number] [place] [address] 37529- 3698 Jan, Low back pain M54.5 [facility] [id number] [place] [address] 08700- 3069 Jan, Low back pain M54.5 [facility] [id number] [place] [address] 06242- 7727 Jan, [facility] [id number] [place] [address] 80265- 1970 Jan, [facility] [id number] [place] [address] 20859- 3276 Jan, [facility] [address] [place] [address] 65924- 3689 Dec, Throat mass R22.1 [facility] [id number] [place] [address] 55752- 6524 Dec, Throat mass R22.1 [facility] [address] [place] [address] 75885- 5955 Dec, Mass in neck R22.1 [facility] [id number] [place] [address] 61016- 2546 Dec, [facility] [address] [place] [address] 55065- 1692 04 Oct, 2016 Cough R05 and Encounter for immunization Z23 [facility] [address] [address]- 1717 Nov, Upper respiratory tract infection, unspecified type J06.9 [facility] [id number] [place] [address] 82395- 7974 Nov, [facility] [id number] [place] [address] 76639- 0549 Nov, [facility] [id number] [place] [address] 95324- 1786 Nov, Chondromalacia, left knee M94.262 [facility] [id number] [place] [address] 63457- 6199 Oct, [facility] [id number] [place] [address] 87675- 6386 Oct, [facility] [id number] [place] [address] 20159- 3983 Oct, Chondromalacia, left knee M94.262 [facility] [id number] [place] [address] 56751- 4902 Sep, [facility] [id number] [place] [address] 21267- 4215 Aug, [facility] [id number] [place] [address] 09735- 3087 Aug, [facility] [id number] [place] [address] 75857- 0003 July, Chondromalacia, left knee M94.262 [facility] [id number] [place] [address] 08713- 9154 July, [facility] [id number] [place] [address] 08919- 5283 July, [facility] [id number] [place] [address] 77335- 1903 Jun, Abscess L02.91 and Vaginal bleeding between periods N92.0 [facility] [id number] [place] [address] 43902- 7192 Jun, [place] [address] 71516- 1064 Jun, Pain in left knee M25.562 and Other chronic pain G89.29 [place] [address] 57000- 3130 Jun, Pain in left knee M25.562 and Other chronic pain G89.29 [place] [id number] [place] [address] 70039- 7612 Jun, [place] [address] 01926- 4586 Jun, Low back pain M54.5 [place] [address] 47144- 5782 Jun, Pain in right knee M25.561 [place] [address] 78699- 9469 Jun, [place] [id number] [place] [address] 87427- 9447 Jun, Low back pain M54.5 [place] [id number] [place] [address] 74300- 7359 May, Cervical neuritis M54.12 ; Thoracic neuritis M54.14 and Pain in right knee M25.561 [place] [id number] [place] [address] 86602- 6081 May, 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 helper 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 of drug Z79.899 [place] [id number] [place] [address] 34266- 4753 Apr, Well woman exam Z01.419 and Thyroid enlarged E04.9 [place] [id number] [place] [address] 50840- 1346 03 Feb, 2016 skilled nursing use of drug Z79.899 ; Low back pain M54.5 and Endometrial hyperplasia N85.00 [place] [address] 15984- 8661 Mar, Well woman exam Z01.419 ; Encounter [...] cancer Z80.41 and Dense breast tissue R92.2 [place] [address] 76646- 7164 Mar, Acute sinusitis, recurrence not specified, unspecified location J01.90 [place] [address] 22551- 4020 Mar, [place] [address] 47283- 7647 Feb, [place] [address] 06662- 2104 Dec, [place] [address] 06810- 1612 Nov, [place] [address] 27578- 5655 Nov, Sinusitis 473.9 [place] [address] 02085- 4563 Oct, [place] [address] 96593- 8277 Sep, Lumbago 724.2 [place] [address] 59159- 5114 Sep, Upper respiratory infection 465.9 [facility] [address] [address]- 9140 Aug, Lumbago 724.2 [facility] [address] [address]- 5767 Aug, Abscess 682.9 [facility] [id number] [place] [address] 25369- 5552 Aug, Abscess and cellulitis 682.9 [facility] [address] [place] [address] 93491- 8019 Aug, Insect bite of buttock, infected 911.9 [facility] [address] [place] [address] 05885- 1118 July, Lumbago 724.2 [facility] [id number] [place] [address] 90030- 9761 July, [facility] [address] [place] [address] 07248- 0156 July, Routine gynecological examination V72.31 ; Screen for STD ( sexually transmitted disease) V74.5 ; Routine physicl lab exam V72.62 and Vulvar abscess 616.4 [facility] [address] [address]- 9492 July, [facility] [address] [address]- 6831 Jun, [facility] [address] [address]- 7929 Jun, [facility] [id number] [place] [address] 04881- 0473 May, [facility] [address] [address]- 3375 May, [facility] [address] [place] [address] 94159- 0178 May, [facility] [place] [facility] [address] [id number] [place] [address]- 2241 May, [facility] [place] [facility] [address] [id number] [place] [address]- 3628 Apr, 2014 [facility] [place] [facility] [address] [facility] [id number] [place] [address]- 9000 Apr, 2014 [facility] [place] [facility] [address] [facility] [id number] [place] [address]- 4970 Apr, 2014 [facility] [place] [facility] [address] [id number] [place] [address]- 5934 Apr, 2014 [facility] [place] [facility] [address] [facility] [id number] [place] [address]- 5995 Apr, 2014 [facility] [place] [facility] [address] [facility] [id number] [place] [address]- 9041 Apr, 2014 [facility] [place] [facility] [address] [facility] [id number] [place] [address]- 7915 Apr, 2014 [facility] [place] [facility] [address] [facility] [id number] [place] [address]- 1571 Apr, 2014 [facility] [place] [facility] [address] [facility] [id number] [place] [address]- 7027 Apr, [facility] [place] [facility] [address] [facility] [id number] [place] [address]- 2775 Apr, 2014 [facility] [place] [facility] [address] [facility] [id number] [place] [address]- 8079 Mar, [facility] [place] [facility] [address] [id number] [place] [address]- 0815 Mar, [facility] [place] [facility] [address] [facility] [id number] [place] 1157 Feb, [facility] [place] [facility] [address] [facility] [id number] [place] 5058 Feb, [facility] [place] [facility] [address] [id number] [place] [address]- 1441 15 Feb, 2014 [facility] [place] [facility] [address] [id number] [place] [address]- 3312 15 Feb, 2014 [facility] [place] [facility] [address] [id number] [place] [address]- 1722 Feb, [facility] [place] [facility] [address] [id number] [place] [address]- 8108 Feb, [facility] [place] [facility] [address] [id number] [place] [address]- 6981 Jan, [facility] [place] [facility] [address] [id number] [place] [address]- 2312 Jan, [facility] [place] [facility] [address] [id number] [place] [address]- 5889 Jan, [facility] [place] [facility] [address] [id number] [place] [address]- 6855 Jan, [facility] [place] [facility] [address] [id number] [place] [address]- 8881 Jan, [facility] [place] [facility] [address] [id number] [place] [address]- 3367 Jan, [facility] [place] [facility] [address] [id number] [place] [address]- 9959 31 Dec, 2013 [facility] [place] [facility] [address] [id number] [place] [address]- 2001 31 Dec, 2013 [facility] [place] [facility] [address] [id number] [place] [address]- 3233 31 Dec, 2013 [facility] [place] [facility] [address] [id number] [place] [address]- 0598 31 Dec, 2013 [facility] [place] [facility] [address] [id number] [place] [address]- 8886 15 Dec, 2013 [facility] [place] [facility] [address] [id number] [place] [address]- 0703 Dec, [facility] [place] [facility] [address] [id number] [place] [address]- 5492 Dec, [facility] [place] [facility] [address] [id number] [place] [address]- 7835 Dec, [facility] [place] [facility] [address] [id number] [place] [address]- 8360 Nov, [facility] [place] [facility] [address] [id number] [place] [address]- 3225 Nov, [facility] [place] [facility] [address] [id number] [place] [address]- 7180 Nov, [facility] [place] [facility] [address] [id number] [place] [address]- 4304 Nov, [facility] [place] [facility] [address] [id number] [place] [address]- 0887 Nov, [facility] [place] [facility] [address] [id number] [place] [address]- 4324 Oct, [facility] [place] [facility] [address] [id number] [place] [address]- 8806 Oct, [facility] [place] [facility] [address] [id number] [place] [address]- 8177 Oct, [facility] [place] [facility] [address] [id number] [address]- 7762 Oct, [facility] [place] [facility] [address] [id number] [address]- 0883 Oct, [facility] [place] [facility] [address] [id number] [place] [address]- 1170 Sep, [facility] [place] [facility] [address] [id number] [place] [address]- 7340 Sep, [facility] [place] [facility] [address] [id number] [place] [address]- 9939 Sep, [facility] [place] [facility] [address] [id number] [place] [address]- 8109 Sep, [facility] [place] [facility] [address] [id number] [place] 9851 Sep, [facility] [place] [facility] [address] [id number] [place] 6544 Sep, [facility] [place] [facility] [address] [id number] [place] [address]- 2212 Aug, [facility] [place] [facility] [address] [id number] [place] [address]- 9722 Aug, [facility] [place] [facility] [address] [id number] [place] [address]- 8294 Aug, [facility] [place] [facility] [address] [id number] [place] [address]- 4111 Aug, [facility] [place] [facility] [address] [facility] [id number] [place] [address]- 8276 Aug, [facility] [place] [facility] [address] [id number] [place] [address]- 6539 Aug, [facility] [place] [facility] [address] [id number] [place] [address]- 2738 Jun, [facility] [place] [facility] [address] [facility] [id number] [place] [address]- 8000 Jun, [facility] [place] [facility] [address] [id number] [place] [address]- 2997 May, [facility] [place] [facility] [address] [id number] [place] [address]- 7814 May, [facility] [place] [facility] [address] [id number] [place] [address]- 7798 Apr, [facility] [place] [facility] [address] [facility] [id number] [place] [address]- 0280 Apr, [facility] [place] [facility] [address] [id number] [place] [address]- 2566 Apr, [facility] [place] [facility] [address] [id number] [place] [address]- 5295 Apr, [facility] [place] [facility] [address] [id number] [place] [address]- 1994 Mar, [facility] [place] [facility] [address] [id number] [place] [address]- 7170 Mar, [facility] [place] [facility] [address] [id number] [place] [address]- 9241 Mar, [facility] [place] [facility] [address] [id number] [place] [address]- 4268 Mar, [facility] [place] [facility] [address] [id number] [place] [address]- 5657 Mar, [facility] [place] [facility] [address] [id number] [place] [address]- 1592 Mar, [facility] [place] [facility] [address] [id number] [address]- 5586 Mar, [facility] [place] [facility] [address] [id number] [place] [address]- 2016 Mar, [facility] [place] [facility] [address] [id number] [address]- 7681 Mar, [facility] [place] [facility] [address] [id number] [place] [address]- 8264 Mar, [facility] [place] [facility] [address] [id number] [place] [address]- 5523 Dec, [facility] [place] [facility] [address] [id number] [place] [address]- 6832 Dec, [facility] [place] [facility] [address] [id number] [address]- 1906 Dec, [facility] [place] [facility] [address] [id number] [place] [address]- 4937 Dec, [facility] [place] [facility] [address] [id number] [place] [address]- 8621 Dec, [facility] [address] [id number] [place] [address]- 7191 Dec, [facility] [address] [id number] [place] [address]- 9947 Nov, [facility] [address] [facility] [id number] [place] [address]- 0971 Jun, [facility] [address] [id number] [place] [address]- 0520 Jun, [facility] [address] [id number] [place] [address]- 8252 Jun, [facility] [address] [id number] [place] [address]- 0345 May, [facility] [id number] [place] [address] May, [facility] [address] [id number] [place] [address] Apr, [facility] [address] [id number] [place] [address] Mar, [facility] [address] [id number] [place] [address] Mar, [facility] [address] [id number] [place] [address] Mar, [facility] [place] [facility] [address] [id number] [address] Mar, [facility] [address] [id number] [place] [address] Mar, [facility] [place] [facility] [address] [facility] [id number] [place] [address] Mar, [facility] [address] [id number] [address] Mar, [facility] [address] [id number] [address] Mar, [facility] [id number] [address] Mar, [facility] [id number] [address] Mar, [facility] [id number] [address] Feb, [facility] [id number] [address] Feb, [facility] [id number] [place] [address] Feb, [facility] [id number] [address] Mar, [facility] [id number] [address] Feb, [facility] [address] [id number] [address] Feb, IMMUNIZATIONS No Known Immunizations SOCIAL HISTORY Never Assessed REASON FOR VISIT Controlled Med Refill PLAN OF CARE VITAL SIGNS MEDICATIONS Medication Instructions Dosage Frequency Start Date End Date Duration Status [place] 7.5-325 MG Orally every 6 hrs. 1 tablet as needed Jan, 28 days Active RESULTS No Results PROCEDURES [...]
--- OUTSIDE RECORDS SUMMARY | 2018-01-15 17:13 | XMS REPORT ---
Author Author MARTIN GUERRERO [facility] Address [address] [place] [address] Care Team Providers Care Offbearer Name Role Phone MARTIN GUERRERO Unavailable PROBLEMS Type Condition ICD9-CM Code [id number] Code Onset Dates Condition Status SNOMED Code Problem Pain in left knee M25.562 Active 29677465 Problem Other inflammatory polyneuropathies G61.89 Active 949276003 Problem Carpal tunnel syndrome G56.00 Active 57277011 Problem Malignant lymphoma of lymph nodes C85.90 Active 235566315 Problem Low back pain M54.5 Active 317214634 Problem Endometrial hyperplasia N85.00 Active [id number] ALLERGIES Unknown Allergies SOCIAL HISTORY No smoking Hx information available PLAN OF CARE VITAL SIGNS MEDICATIONS Medication Instructions Dosage Frequency Start Date End Date Duration Status [place] 7.5-325 MG Orally every 6 hrs. MUST LAST 30 DAYS 1 tablet as needed Feb, Feb, Active Xanax 1 MG Orally Twice a day as needed 1 tablet Active RESULTS No Results PROCEDURES No Known procedures IMMUNIZATIONS No Known Immunizations
--- OUTSIDE RECORDS SUMMARY | 2018-01-15 17:13 | XMS REPORT ---
Author Author MARTIN GUERRERO Organization [employer] Address Unknown Phone Unavailable Care Team Providers Care Sales Representative Advertising Name Role Phone MARTIN GUERRERO CP Unavailable [...] Instructions Start Date End Date Status Dosage [facility] [id number] 5-325 MG May 13, 2014 take 1 tablet by Oral route every 6 hours as needed for pain Results No Known Results Summary Purpose [employer] Submission
--- OUTSIDE RECORDS SUMMARY | 2018-01-15 17:13 | XMS REPORT ---
Author Author MARTIN GUERRERO Organization [facility] Address [address] [place] [address] Care Team Providers Care Land Leveler Name Role Phone MARTIN GUERRERO Unavailable PROBLEMS Type Condition ICD9-CM Code GGE64-HO Code Onset Dates Condition Status SNOMED Code Problem Carpal tunnel syndrome G56.00 Active 56441833 Problem Other inflammatory polyneuropathies G61.89 Active 996325140 Problem Acquired hypothyroidism E03.9 Active 078079824 Problem Malignant lymphoma of lymph nodes C85.90 Active 644953455 Problem Other hyperlipidemia E78.4 Active 34069375 Problem Thyroid nodule E04.1 Active 888275797 Problem Endometrial hyperplasia N85.00 Active 716435171 Problem Low back pain M54.5 Active 632693163 Problem Lumbago with sciatica, left side M54.42 Active 478218531 Problem Pain in left knee M25.562 Active 95103427 ALLERGIES No Information ENCOUNTERS Encounter Location Date Diagnosis [facility] [id number] [place] [address] 38838- 8495 July, Elevated TSH R94.6 [facility] [id number] [place] [address] 03135- 5442 17 Jun, 2017 Thyroid nodule E04.1 [facility] [id number] [place] [address] 50432- 3457 Jun, Well woman exam (no gynecological exam) Z00.00 ; Thyroid nodule E04.1 ; Weight gain R63.5 ; Other hyperlipidemia E78.4 and Excessive cerumen in both ear canals H61.23 [facility] [id number] [place] [address] 55369- 8458 Jan, Low back pain M54.5 [facility] [id number] [place] [address] 39695- 7954 Jan, [facility] [id number] [place] [address] 62557 -7772 Nov, Abscess L02.91 [facility] [id number] [place] [address] 75276- 0958 Nov, Low back pain M54.5 [facility] [id number] [place] [address] 24748- 8510 Oct, Lumbago with sciatica, left side M54.42 [facility] [id number] [place] [address] [id number] Oct, [facility] [id number] [place] [address] 23814- 3391 Oct, Carpal tunnel syndrome G56.00 [facility] [id number] [place] [address] [id number] Sep, Dental examination Z01.20 [facility] [id number] [place] [address] 00647- 5271 Aug, Carpal tunnel syndrome G56.00 [facility] [id number] [place] [address] 22055- 1322 July, [facility] [id number] [place] [address] 08396- 7369 July, [facility] [id number] [place] [address] 18027- 9677 July, Carpal tunnel syndrome G56.00 [facility] [id number] [place] [address] 11652- 6988 May, Carpal tunnel syndrome G56.00 and Cervical neuritis M54.12 [facility] [id number] [place] [address] 341954- 0573 May, [facility] [id number] [place] [address] 27562- 7172 Mar, [facility] [id number] [place] [address] 77212- 9293 Feb, [facility] [id number] [place] [address] 63641- 5866 Feb, [facility] [id number] [place] [address] 75846- 5916 Feb, Low back pain M54.5 and Pain in left knee M25.562 [facility] [id number] [place] [address] 95607- 5898 Feb, Low back pain M54.5 [facility] [id number] [place] [address] 53370- 9041 Jan, Low back pain M54.5 [facility] [id number] [place] [address] 26345- 4520 Jan, Low back pain M54.5 [facility] [id number] [place] [address] 04208- 5357 Jan, [facility] [id number] [place] [address] 50347- 5294 Jan, [facility] [id number] [place] [address] 03013- 5209 Jan, [facility] [id number] [place] [address] 39617- 2424 Dec, Throat mass R22.1 [facility] [id number] [place] [address] 38824- 9507 Dec, Throat mass R22.1 [facility] [address] [place] [address] 64109- 0504 Dec, Mass in neck R22.1 [facility] [id number] [place] [address] 71936- 2546 Dec, [facility] [address] [place] [address] 86110- 3704 04 Oct, 2016 Cough R05 and Encounter for immunization Z23 [facility] [address] [address]- 9544 Nov, Upper respiratory tract infection, unspecified type J06.9 [facility] [id number] [place] [address] 47524- 3346 Nov, [facility] [id number] [place] [address] 92720- 9287 Nov, [facility] [id number] [place] [address] 26768- 9465 Nov, Chondromalacia, left knee M94.262 [facility] [id number] [place] [address] 79235- 2012 Oct, [facility] [id number] [place] [address] 81335- 0142 Oct, [facility] [id number] [place] [address] 87537- 3587 Oct, Chondromalacia, left knee M94.262 [facility] [id number] [place] [address] 76936- 4155 Sep, [facility] [id number] [place] [address] 39113- 3379 Aug, [facility] [id number] [place] [address] 75401- 0288 Aug, [facility] [id number] [place] [address] 96423- 8866 July, Chondromalacia, left knee M94.262 [facility] [id number] [place] [address] 18572- 8314 July, [facility] [id number] [place] [address] 10580- 3987 July, [facility] [id number] [place] [address] 58694- 7186 Jun, Abscess L02.91 and Vaginal bleeding between periods N92.0 [facility] [id number] [place] [address] 77464- 7321 Jun, [facility] [facility] [address] 28592- 1431 Jun, Pain in left knee M25.562 and Other chronic pain G89.29 [facility] [facility] [address] 52978- 2120 Jun, Pain in left knee M25.562 and Other chronic pain G89.29 [facility] [id number] [place] [address] 31673- 6296 Jun, [facility] [facility] [address] 17470- 9927 Jun, Low back pain M54.5 [place] [facility] [address] 66632- 1070 Jun, Pain in right knee M25.561 [facility] [facility] [address] 16857- 7043 Jun, [facility] [facility] [id number] [place] [address] 10075- 7454 Jun, Low back pain M54.5 [place] [facility] [id number] [place] [address] 68954- 8057 May, Cervical neuritis M54.12 ; Thoracic neuritis M54.14 and Pain in right knee M25.561 [facility] [facility] [id number] [place] [address] 40558- 4858 May, 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 [place] [facility] [id number] [place] [address] 15820- 3906 Apr, Well woman exam Z01.419 and Thyroid enlarged E04.9 [facility] [facility] [id number] [place] [address] 95827- 7994 03 Feb, 2016 jail use of drug Z79.899 ; Low back pain M54.5 and Endometrial hyperplasia N85.00 [place] [address] 39785- 8444 Mar, Well woman exam Z01.419 ; Encounter [...] cancer Z80.41 and Dense breast tissue R92.2 [place] [address] 71491- 7704 Mar, Acute sinusitis, recurrence not specified, unspecified location J01.90 [place] [facility] [address] 53169- 4259 Mar, [place] [facility] [address] 69348- 2648 Feb, [place] [facility] [address] 96390- 0808 Dec, [place] [facility] [address] 55216- 1694 Nov, [facility] [facility] [address] 36445- 7129 Nov, Sinusitis 473.9 [place] [facility] [address] 22397- 3512 Oct, [facility] [facility] [address] 40629- 9365 Sep, Lumbago 724.2 [place] [facility] [address] 18321- 7346 Sep, Upper respiratory infection 465.9 [facility] [address] [address]- 7638 Aug, Lumbago 724.2 [facility] [address] [address]- 7241 Aug, Abscess 682.9 [facility] [id number] [place] [address] 58503- 1340 Aug, Abscess and cellulitis 682.9 [facility] [address] [place] [address] 94620- 2025 Aug, Insect bite of buttock, infected 911.9 [facility] [address] [place] [address] 47189- 0160 July, Lumbago 724.2 [facility] [id number] [place] [address] 22437- 6160 July, [facility] [id number] [place] [address] 35680- 0451 July, Routine gynecological examination V72.31 ; Screen for STD ( sexually transmitted disease) V74.5 ; Routine physicl lab exam V72.62 and Vulvar abscess 616.4 [facility] [address] [address]- 1952 July, [facility] [address] [address]- 2682 Jun, [facility] [address] [address]- 3438 Jun, [facility] [id number] [place] [address] 44301- 2009 May, [facility] [address] [address]- 6624 May, [facility] [id number] [place] [address] 73160- 2677 May, [facility] [place] [facility] [address] [id number] [place] [address]- 9194 May, [facility] [place] [facility] [address] [id number] [place] [address]- 0485 Apr, 2014 [facility] [place] [facility] [address] [facility] [id number] [place] [address]- 1792 Apr, 2014 [facility] [place] [facility] [address] [facility] [id number] [place] [address]- 3399 Apr, 2014 [facility] [place] [facility] [address] [id number] [place] [address]- 6755 Apr, 2014 [facility] [place] [facility] [address] [facility] [id number] [place] [address]- 6652 Apr, 2014 [facility] [place] [facility] [address] [facility] [id number] [place] [address]- 3248 Apr, 2014 [facility] [place] [facility] [address] [facility] [id number] [place] [address]- 7024 Apr, 2014 [facility] [place] [facility] [address] [facility] [id number] [place] [address]- 5300 Apr, 2014 [facility] [place] [facility] [address] [facility] [id number] [place] [address]- 1960 Apr, [facility] [place] [facility] [address] [facility] [id number] [place] [address]- 3904 Apr, 2014 [facility] [place] [facility] [address] [facility] [id number] [place] [address]- 9409 Mar, [facility] [place] [facility] [address] [id number] [place] [address]- 8389 Mar, [facility] [place] [facility] [address] [facility] [id number] [place] 1226 Feb, [facility] [place] [facility] [address] [facility] [id number] [place] 5794 Feb, [facility] [place] [facility] [address] [id number] [place] [address]- 0547 15 Feb, 2014 [facility] [place] [facility] [address] [id number] [place] [address]- 7915 15 Feb, 2014 [facility] [place] [facility] [address] [id number] [place] [address]- 0928 Feb, [facility] [place] [facility] [address] [id number] [place] [address]- 6447 Feb, [facility] [place] [facility] [address] [id number] [place] [address]- 5556 Jan, [facility] [place] [facility] [address] [id number] [place] [address]- 6600 Jan, [facility] [place] [facility] [address] [id number] [place] [address]- 5203 Jan, [facility] [place] [facility] [address] [id number] [place] [address]- 0444 Jan, [facility] [place] [facility] [address] [id number] [place] [address]- 2592 Jan, [facility] [place] [facility] [address] [id number] [place] [address]- 9410 Jan, [facility] [place] [facility] [address] [id number] [place] [address]- 4720 31 Dec, 2013 [facility] [place] [facility] [address] [id number] [place] [address]- 8996 31 Dec, 2013 [facility] [place] [facility] [address] [id number] [place] [address]- 0866 31 Dec, 2013 [facility] [place] [facility] [address] [id number] [place] [address]- 8326 31 Dec, 2013 [facility] [place] [facility] [address] [id number] [place] [address]- 5191 15 Dec, 2013 [facility] [place] [facility] [address] [id number] [place] [address]- 1457 Dec, [facility] [place] [facility] [address] [id number] [place] [address]- 4715 Dec, [facility] [place] [facility] [address] [id number] [place] [address]- 0907 Dec, [facility] [place] [facility] [address] [id number] [place] [address]- 8769 Nov, [facility] [place] [facility] [address] [id number] [place] [address]- 5255 Nov, [facility] [place] [facility] [address] [id number] [place] [address]- 3745 Nov, [facility] [place] [facility] [address] [id number] [place] [address]- 8159 Nov, [facility] [place] [facility] [address] [id number] [place] [address]- 8380 Nov, [facility] [place] [facility] [address] [id number] [place] [address]- 7618 Oct, [facility] [place] [facility] [address] [id number] [place] [address]- 4429 Oct, [facility] [place] [facility] [address] [id number] [place] [address]- 6552 Oct, [facility] [place] [facility] [address] [id number], [place] [address]- 7754 Oct, [facility] [place] [facility] [address] [id number], [place] [address]- 9358 Oct, [facility] [place] [facility] [address] [id number] [place] [address]- 4615 Sep, [facility] [place] [facility] [address] [id number] [place] [address]- 3393 Sep, [facility] [place] [facility] [address] [id number] [place] [address]- 2874 Sep, [facility] [place] [facility] [address] [id number] [place] [address]- 4634 Sep, [facility] [place] [facility] [address] [id number] [place] 1763 Sep, [facility] [place] [facility] [address] [id number] [place] 4603 Sep, [facility] [place] [facility] [address] [id number] [place] [address]- 2170 Aug, [facility] [place] [facility] [address] [id number] [place] [address]- 5953 Aug, [facility] [place] [facility] [address] [id number] [place] [address]- 2079 Aug, [facility] [place] [facility] [address] [id number] [place] [address]- 8050 Aug, [facility] [place] [facility] [address] [facility] [id number] [place] [address]- 1643 Aug, [facility] [place] [facility] [address] [id number] [place] [address]- 3492 Aug, [facility] [place] [facility] [address] [id number] [place] [address]- 3485 Jun, [facility] [place] [facility] [address] [facility] [id number] [place] [address]- 2995 Jun, [facility] [place] [facility] [address] [id number] [place] [address]- 2931 May, [facility] [place] [facility] [address] [id number] [place] [address]- 7520 May, [facility] [place] [facility] [address] [id number] [place] [address]- 7759 Apr, [facility] [place] [facility] [address] [facility] [id number] [place] [address]- 3181 Apr, [facility] [place] [facility] [address] [id number] [place] [address]- 8608 Apr, [facility] [place] [facility] [address] [id number] [place] [address]- 4171 Apr, [facility] [place] [facility] [address] [id number] [place] [address]- 0992 Mar, [facility] [place] [facility] [address] [id number] [place] [address]- 6563 Mar, [facility] [place] [facility] [address] [id number] [place] [address]- 2558 Mar, [facility] [place] [facility] [address] [id number] [place] [address]- 4158 Mar, [facility] [place] [facility] [address] [id number] [place] [address]- 7945 Mar, [facility] [place] [facility] [address] [id number] [place] [address]- 8096 Mar, [facility] [place] [facility] [address] [id number], [place] [address]- 5928 Mar, [facility] [place] [facility] [address] [id number] [place] [address]- 4463 Mar, [facility] [place] [facility] [address] [id number], [place] [address]- 8578 Mar, [facility] [place] [facility] [address] [id number], [place] [address]- 4995 Mar, [facility] [place] [facility] [address] [id number], [place] [address]- 4415 Dec, [facility] [place] [facility] [address] [id number] [place] [address]- 4113 Dec, [facility] [place] [facility] [address] [id number], [place] [address]- 6406 Dec, [facility] [place] [facility] [address] [id number], [place] [address]- 5995 Dec, [facility] [place] [facility] [address] [id number], [place] [address]- 1079 Dec, [facility] [address] [id number] [place] [address]- 4077 Dec, [facility] [address] [id number] [place] [address]- 9217 Nov, [facility] [address] [facility] [id number] [place] [address]- 0027 Jun, [facility] [address] [id number] [place] [address]- 5305 Jun, [facility] [address] [id number] [place] [address]- 3380 Jun, [facility] [address] [id number] [place] [address]- 8367 May, [facility] [address] [place] [address]- 4584 May, [facility] [address] [id number] [place] [address]- 2998 Apr, [facility] [id number] [place] [address]- 7458 Mar, [facility] [address] [id number] [place] [address]- 1355 Mar, [facility] [address] [id number] [place] [address]- 2440 Mar, [facility] [place] [facility] [address] [id number], [place] [address]- 6345 Mar, [facility] [address] [id number] [place] [address] Mar, [facility] [place] [facility] [address] [facility] [id number], [place] [address] Mar, [facility] [address] [id number] [address] Mar, [facility] [address] [id number], [place] [address] Mar, [facility] [address] [id number], [place] [address] Mar, [facility] [id number], [place] [address] Mar, [facility] [id number], [place] [address] Feb, [facility] [id number], [place] [address] Feb, [facility] [id number], [place] [address] Feb, [facility] [id number], [place] [address] Mar, [facility] [id number], [place] [address] Feb, [facility] [address] [id number], [place] [address] Feb, IMMUNIZATIONS No Known Immunizations SOCIAL HISTORY Never Assessed REASON FOR VISIT refill/PT PLAN OF CARE VITAL SIGNS MEDICATIONS Unknown [...]
--- OUTSIDE RECORDS SUMMARY | 2018-01-15 17:14 | XMS REPORT ---
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
--- OUTSIDE RECORDS SUMMARY | 2018-01-15 17:14 | XMS REPORT ---
Author Author SARBJIT STACK [facility] Address Unknown Care Team Providers Care Control Operator Flow Coat Name Role Phone SARBJIT STACK Unavailable PROBLEMS Type Condition ICD9-CM Code IVY28-IV Code Onset Dates Condition Status SNOMED Code Problem Malignant lymphoma of lymph nodes C85.90 Active 407067280 Problem Other inflammatory polyneuropathies G61.89 Active 023945715 Problem Carpal tunnel syndrome G56.00 Active 75857364 Problem Other hyperlipidemia E78.4 Active 71378337 Problem Thyroid nodule E04.1 Active 498568133 Problem Endometrial hyperplasia N85.00 Active 214666648 Problem Low back pain M54.5 Active 995427075 Problem Lumbago with sciatica, left side M54.42 Active 735664165 Problem Pain in left knee M25.562 Active 15410824 ALLERGIES No Known Allergies ENCOUNTERS Encounter Location Date Diagnosis [facility] [id number] [place] [address] 42805- 3736 Jun, Well woman exam (no gynecological exam) Z00.00 ; Thyroid nodule E04.1 ; Weight gain R63.5 ; Other hyperlipidemia E78.4 and Excessive cerumen in both ear canals H61.23 [facility] [id number] [place] [address] 96338- 2084 Jan, Low back pain M54.5 [facility] [id number] [place] [address] 43993- 8773 Jan, [facility] [id number] [place] [address] 62912 -4177 Nov, Abscess L02.91 [facility] [id number] [place] [address] 97700- 3094 Nov, Low back pain M54.5 [facility] [address] [place] [address]14 Oct, Lumbago with sciatica, left side M54.42 [facility] [id number] [place] [address] [id number] Oct, [facility] [id number] [place] [address] 27514- 1046 Oct, Carpal tunnel syndrome G56.00 [facility] [id number] [place] [address] [id number] Sep, Dental examination Z01.20 [facility] [id number] [place] [address] 08269- 2175 Aug, Carpal tunnel syndrome G56.00 [facility] [id number] [place] [address] 50815- 3822 July, [facility] [id number] [place] [address] 60974- 8887 July, [facility] [id number] [place] [address] 81141- 3238 July, Carpal tunnel syndrome G56.00 [facility] [id number] [place] [address] 61850- 9304 May, Carpal tunnel syndrome G56.00 and Cervical neuritis M54.12 [facility] [id number] [place] [address] 25815- 5695 May, [facility] [id number] [place] [address] 96536- 9920 Mar, [facility] [id number] [place] [address] 45290- 3126 Feb, [facility] [id number] [place] [address] 16130- 6052 Feb, [facility] [address] [address] 8916 Feb, Low back pain M54.5 and Pain in left knee M25.562 [facility] [id number] [place] [address] 25707- 5859 Feb, Low back pain M54.5 [facility] [id number] [place] [address] 08760- 5296 Jan, Low back pain M54.5 [facility] [id number] [place] [address] 61896- 0556 Jan, Low back pain M54.5 [facility] [id number] [place] [address] 36142- 5609 Jan, [facility] [address] 46338- 5494 Jan, [facility] [id number] [place] [address] 72073- 4000 Jan, [facility] [id number] [place] [address] 90526- 2923 Dec, Throat mass R22.1 [facility] [id number] [place] [address] 76026- 2367 Dec, Throat mass R22.1 [facility] [id number] [place] [address] 62681- 7036 Dec, Mass in neck R22.1 [facility] [id number] [place] [address] 03315- 5977 Dec, [facility] [id number] [place] [address] 74887- 1845 Dec, Cough R05 and Encounter for immunization Z23 [facility] [id number] [place] [address] 90089- 3558 Nov, Upper respiratory tract infection, unspecified type J06.9 [facility] [id number] [place] [address] 05277- 5872 Nov, [facility] [address] [place] [address]- 0446 Nov, [facility] [id number] [place] [address] 18172- 8766 Nov, Chondromalacia, left knee M94.262 [facility] [address] [address] 2546 Oct, [facility] [id number] [place] [address] 67767 2546 Oct, [facility] [id number] [place] [address] 88103 2543 Oct, Chondromalacia, left knee M94.262 [facility] [id number] [place] [address] 09460- 8976 Sep, [facility] [id number] [place] [address] 32100- 0516 Aug, [facility] [id number] [place] [address] 01749- 3494 Aug, [facility] [id number] [place] [address] 19969- 5044 July, Chondromalacia, left knee M94.262 [facility] [address] [address]- 9116 July, [facility] [id number] [place] [address] 56307- 6346 July, [facility] [address] [address] 2546 Jun, Abscess L02.91 and Vaginal bleeding between periods N92.0 [facility] [id number] [place] [address] 60586- 6926 Jun, [facility] [address] [address] 2546 Jun, Pain in left knee M25.562 and Other chronic pain G89.29 [facility] [id number] [place] [address] 87417- 9396 Jun, Pain in left knee M25.562 and Other chronic pain G89.29 [facility] [id number] [place] [address] 49555- 2915 Jun, [facility] [id number] [place] [address] 83564- 6432 Jun, Low back pain M54.5 [facility] [id number] [place] [address] 96136- 0765 Jun, Pain in right knee M25.561 [address] [address] 38611- 5728 Jun, [facility] [id number] [place] [address] 35066- 4496 Jun, Low back pain M54.5 [facility] [address] 09125- 2547 May, Cervical neuritis M54.12 ; Thoracic neuritis M54.14 and Pain in right knee M25.561 [facility] [id number] [place] [address] 37455- 7211 May, assisted use of drug Z79.899 [facility] [id number] [place] [address] 40127- 7167 Apr, Well woman exam Z01.419 and Thyroid enlarged E04.9 [facility] [id number] [place] [address] 95755- 7661 Apr, intermediate frame tender use of drug Z79.899 ; Low back pain M54.5 and Endometrial hyperplasia N85.00 [address] [facility] [id number] [place] [address] 79707- 9182 Mar, Well woman exam Z01.419 ; Encounter [...] cancer Z80.41 and Dense breast tissue R92.2 [facility] [address] 77614- 9123 Mar, Acute sinusitis, recurrence not specified, unspecified location J01.90 [address] 969695- 3938 Mar, [facility] [address] 29942- 3958 Feb, [facility] [id number] [place] [address] 94233- 1710 Dec, [facility] [id number] [place] [address] 32861- 6573 Nov, [facility] [id number] [place] [address] 40591- 4194 Nov, Sinusitis 473.9 [facility] [id number] [place] [address] 99921- 1415 Oct, [facility] [id number] [place] [address] 08498- 5786 Sep, Lumbago 724.2 [facility] [id number] [place] [address] 96020- 8805 Sep, Upper respiratory infection 465.9 [facility] [id number] [place] [address] 74500- 2959 Aug, Lumbago 724.2 [facility] [id number] [place] [address] 23579- 1626 Aug, Abscess 682.9 [address] [place] [address]- 0521 Aug, Abscess and cellulitis 682.9 [facility] [id number] [place] [address] 90798- 4926 Aug, Insect bite of buttock, infected 911.9 [facility] [id number] [place] [address] 06448- 1506 July, Lumbago 724.2 [facility] [id number] [place] [address] 24693- 6998 July, [facility] [id number] [place] [address] 37767- 0360 July, Routine gynecological examination V72.31 ; Screen for STD ( sexually transmitted disease) V74.5 ; Routine physicl lab exam V72.62 and Vulvar abscess 616.4 [facility] [id number] [place] [address] 92687- 6486 July, [facility] [id number] [place] [address] 22730- 9777 Jun, [facility] [id number] [place] [address] 08027- 8704 Jun, [facility] [address] [address]- 4236 May, [facility] [address] [address]- 0263 May, [facility] [address] [address]- 6648 May, [facility] [id number] [place] [address] 809326- 3791 May, [facility] [address] [address]- 7238 Apr, [facility] [id number] [place] [address] 90607- 9977 Apr, 2014 [facility] [place] [facility] [address] [id number] [place] [address]- 5655 Apr, 2014 [facility] [place] [facility] [address] [id number] [place] [address]- 3336 Apr, 2014 [facility] [place] [facility] [address] [facility] [id number] [place] [address]- 1724 Apr, 2014 [facility] [place] [facility] [address] [id number] [place] [address]- 1692 Apr, 2014 [facility] [place] [facility] [address] [id number] [place] [address]- 1611 Apr, 2014 [facility] [place] [facility] [address] [facility] [id number] [place] [address]- 3076 Apr, 2014 [facility] [place] [facility] [address] [facility] [id number] [place] [address]- 6131 Apr, 2014 [facility] [place] [facility] [address] [facility] [id number] [place] [address]- 9802 Apr, 2014 [facility] [place] [facility] [address] [facility] [id number] [place] [address]- 9355 Mar, [facility] [place] [facility] [address] [facility] [id number] [place] [address]- 3054 Mar, [facility] [place] [facility] [address] [facility] [id number] [place] [address]- 1122 Feb, [facility] [place] [facility] [address] [facility] [id number] [place] [address]- 0886 17 Feb, 2014 [facility] [place] [facility] [address] [facility] [id number] [place] [address]- 6537 15 Feb, 2014 [facility] [place] [facility] [address] [facility] [id number] [place] [address]- 8708 15 Feb, 2014 [facility] [place] [facility] [address] [facility] [id number] [place] [address]- 9787 Feb, [facility] [place] [facility] [address] [id number] [place] [address]- 7244 Feb, [facility] [place] [facility] [address] [id number] [place] [address]- 3861 Jan, [facility] [place] [facility] [address] [id number] [place] [address]- 1858 Jan, [facility] [place] [facility] [address] [id number] [place] [address]- 5943 Jan, [facility] [place] [facility] [address] [id number] [place] [address]- 5989 Jan, [facility] [place] [facility] [address] [id number] [place] [address]- 5818 Jan, [facility] [place] [facility] [address] [id number] [place] [address]- 9115 Jan, [facility] [place] [facility] [address] [id number] [place] [address]- 2471 Dec, [facility] [place] [facility] [address] [id number] [place] [address]- 2800 31 Dec, 2013 [facility] [place] [facility] [address] [id number] [place] [address]- 2493 31 Dec, 2013 [facility] [place] [facility] [address] [id number] [place] [address]- 7906 31 Dec, 2013 [facility] [place] [facility] [address] [id number] [place] [address]- 6471 15 Dec, 2013 [facility] [place] [facility] [address] [id number] [place] [address]- 6411 15 Dec, 2013 [facility] [place] [facility] [address] [id number] [place] [address]- 5716 13 Dec, 2013 [facility] [place] [facility] [address] [id number] [place] 8085 13 Dec, 2013 [facility] [place] [facility] [address] [id number] [place] [address]- 3215 Nov, [facility] [place] [facility] [address] [id number] [place] [address]- 7168 Nov, [facility] [place] [facility] [address] [id number] [place] [address]- 6830 Nov, [facility] [place] [facility] [address] [id number] [place] [address]- 0061 Nov, [facility] [place] [facility] [address] [id number] [place] [address]- 8195 Nov, [facility] [place] [facility] [address] [id number] [place] [address]- 2004 Oct, [facility] [place] [facility] [address] [id number] [place] [address]- 1994 Oct, [facility] [place] [facility] [address] [id number] [place] [address]- 9584 Oct, [facility] [place] [facility] [address] [id number] [place] [address]- 9924 Oct, [facility] [place] [facility] [address] [id number] [place] [address]- 6906 Oct, [facility] [place] [facility] [address] [id number] [place] [address]- 5289 Sep, [facility] [place] [facility] [address] [id number], [place] [address]- 9866 Sep, [facility] [place] [facility] [address] [id number], [place] [address]- 0490 Sep, [facility] [place] [facility] [address] [id number] [place] [address]- 3380 Sep, [facility] [place] [facility] [address] [id number] [place] [address]- 0446 Sep, [facility] [place] [facility] [address] [id number] [place] [address]- 1137 Sep, [facility] [place] [facility] [address] [id number] [place] [address]- 0363 Aug, [facility] [place] [facility] [address] [id number] [place] [address]- 0495 Aug, [facility] [place] [facility] [address] [id number] [place] [address]- 0978 Aug, [facility] [place] [facility] [address] [id number] [place] [address]- 4600 Aug, [facility] [place] [facility] [address] [id number] [place] [address]- 7078 Aug, [facility] [place] [facility] [address] [id number] [place] [address]- 9035 Aug, [facility] [place] [facility] [address] [id number] [place] [address]- 9120 Jun, [facility] [place] [facility] [address] [id number] [place] [address]- 0992 Jun, [facility] [place] [facility] [address] [id number] [place] [address]- 2009 May, [facility] [place] [facility] [address] [id number] [place] [address]- 1902 May, [facility] [place] [facility] [address] [facility] [id number] [place] [address]- 4247 Apr, [facility] [place] [facility] [address] [id number] [place] [address]- 3387 Apr, [facility] [place] [facility] [address] [facility] [id number] [place] 6104 Apr, [facility] [place] [facility] [address] [id number] [place] 4930 Apr, [facility] [place] [facility] [address] [facility] [id number] [place] [address]- 9112 Mar, [facility] [place] [facility] [address] [id number] [place] [address]- 8437 Mar, [facility] [place] [facility] [address] [id number] [place] [address]- 3286 Mar, [facility] [place] [facility] [address] [id number] [place] [address]- 3190 Mar, [facility] [place] [facility] [address] [id number] [place] [address]- 0410 Mar, [facility] [place] [facility] [address] [id number] [place] [address]- 9797 Mar, [facility] [place] [facility] [address] [id number] [place] [address]- 1111 Mar, [facility] [place] [facility] [address] [id number] [place] [address]- 0452 Mar, [facility] [place] [facility] [address] [id number] [place] [address]- 6012 Mar, [facility] [place] [facility] [address] [id number] [place] [address]- 5891 Mar, [facility] [place] [facility] [address] [id number] [place] [address]- 6323 Dec, [facility] [place] [facility] [address] [id number], [place] [address]- 2296 Dec, [facility] [place] [facility] [address] [id number], [place] [address]- 6012 Dec, [facility] [place] [facility] [address] [id number], [place] [address]- 1811 Dec, [facility] [place] [facility] [address] [id number] [place] [address]- 8145 Dec, [facility] [place] [facility] [address] [id number], [place] [address]- 8811 Dec, [facility] [place] [facility] [address] [id number], [place] [address]- 4621 Nov, [facility] [place] [facility] [address] [id number], [place] [address]- 0657 Jun, [facility] [address] [id number] [place] [address]- 7161 Jun, [facility] [address] [id number] [place] [address]- 4928 Jun, [facility] [address] [id number] [place] [address]- 2572 May, [facility] [address] [id number] [place] [address]- 1657 May, [facility] [address] [id number] [place] [address]- 7905 Apr, [facility] [address] [id number] [place] [address]- 9729 Mar, [facility] [address] [id number] [place] [address]- 7978 Mar, [facility] [address] [id number] [place] [address]- 6764 Mar, [facility] [address] [id number] [place] [address]- 6437 Mar, [facility] [address] [id number] [place] [address]- 1407 Mar, [facility] [address] [id number] [place] [address]- 3773 Mar, [facility] [place] [facility] [address] [id number] [place] [address]- 4075 Mar, [facility] [place] [facility] [address] [id number] [place] [address] Mar, [facility] [place] [facility] [address] [id number] [place] [address] Mar, [facility] [address] [id number] [place] [address] Mar, [facility] [address] [facility] [id number], [place] [address] Feb, [facility] [address] [facility] [id number] [address] Feb, [facility] [address] [facility] [id number] [address] Feb, [facility] [address] [facility] [id number][place] [address] Mar, [facility] [address] [facility] [id number] [address] Feb, [facility] [address] [facility] [id number] [address] Feb, IMMUNIZATIONS No Known Immunizations SOCIAL HISTORY Never Assessed REASON FOR VISIT jaw pain PLAN OF CARE Activity Details Follow Up prn Reason: VITAL SIGNS Heart Rate 83 bpm 2016-09-13 Blood pressure systolic 124 mmHg 2016-09-13 Blood pressure diastolic 81 mmHg 2016-09-13 MEDICATIONS Medication Instructions Dosage Frequency Start Date End Date Duration Status Ibuprofen 800 mg take 1 tablet (800 mg) by oral route 3 times per day with food PRN Jan, Active Amoxicillin 500 MG Orally every 8 hrs 1 capsule 8h Sep, Sep, 7 days Active Wellbutrin XL 150 MG Orally Once in AM, once in afternoon 2 tablets Active [place] 7.5-325 MG Orally every 6 hrs. 1 tablet as needed Aug, 28 days Active RESULTS No Results PROCEDURES Procedure Date Ordered Result Body Site LTD ORAL EVALUATION - PROBLEM FOCUS September 13, 2016 PANORAMIC FILM SEE ALSO CODE [id number] September 13, 2016 INSTRUCTIONS MEDICATIONS ADMINISTERED No Known Medications MEDICAL [...]
--- OUTSIDE RECORDS SUMMARY | 2018-01-15 17:14 | XMS REPORT ---
Author Author MARTIN GUERRERO Organization [facility] Address [address] [place] [address] Care Team Providers Care Projector Booth Operator Name Role Phone CESAR MARTIN Unavailable PROBLEMS Type Condition ICD9-CM Code [id number] Code Onset Dates Condition Status SNOMED Code Problem Malignant lymphoma of lymph nodes C85.90 Active 097459806 Problem Lumbago with sciatica, left side M54.42 Active 293243917 Problem Pain in left knee M25.562 Active 14843065 Problem Endometrial hyperplasia N85.00 Active 946157145 Problem Carpal tunnel syndrome G56.00 Active 52493443 Problem Low back pain M54.5 Active 775690534 Problem Other inflammatory polyneuropathies G61.89 Active 856594293 ALLERGIES No Information SOCIAL HISTORY Never Assessed PLAN OF CARE VITAL SIGNS MEDICATIONS No Known Medications RESULTS No Results PROCEDURES No Known [...]
--- OUTSIDE RECORDS SUMMARY | 2018-01-15 17:14 | XMS REPORT ---
Author Author MARTIN GUERRERO Organization [employer] Address Unknown Phone Unavailable Care Team Providers Care Consumer Lending Manager Name Role Phone MARTIN GUERRERO CP [...] Dosage [facility] [id number] 5-325 MG every 6 hrs. MUST LAST 30 DAYS May 13, 2014 1 tablet as needed Results No Known Results Summary Purpose [employer] Submission
--- OUTSIDE RECORDS SUMMARY | 2018-01-15 17:14 | XMS REPORT ---
Author MARTIN Olguin Organization [employer] Address Unknown Phone Unavailable Care Team Providers Care Refrigeration Service Inspector Name Role Phone MARTIN GUERRERO CP Unavailable [...]
--- OUTSIDE RECORDS SUMMARY | 2018-01-15 17:15 | XMS REPORT ---
Author Author MARTIN GUERRERO Organization [facility] Address [address] [place] [address] Care Team Providers Care Medical Information Officer Name Role Phone MARTIN GUERRERO Unavailable PROBLEMS Type Condition ICD9-CM Code FNC22-VI Code Onset Dates Condition Status SNOMED Code Problem Carpal tunnel syndrome G56.00 Active 73234675 Problem Other inflammatory polyneuropathies G61.89 Active 452536262 Problem Acquired hypothyroidism E03.9 Active 922113980 Problem Malignant lymphoma of lymph nodes C85.90 Active 448301821 Problem Other hyperlipidemia E78.4 Active 44414201 Problem Thyroid nodule E04.1 Active 160156795 Problem Endometrial hyperplasia N85.00 Active 714767233 Problem Low back pain M54.5 Active 743118640 Problem Lumbago with sciatica, left side M54.42 Active 129435402 Problem Pain in left knee M25.562 Active 75582452 ALLERGIES No Known Allergies ENCOUNTERS Encounter Location Date Diagnosis [facility] [id number] [place] [address] 50920- 3644 Jun, Thyroid nodule E04.1 [facility] [id number] [place] [address] 68955- 2587 Jun, Well woman exam (no gynecological exam) Z00.00 ; Thyroid nodule E04.1 ; Weight gain R63.5 ; Other hyperlipidemia E78.4 and Excessive cerumen in both ear canals H61.23 [facility] [id number] [place] [address] 72520- 3608 Jan, Low back pain M54.5 [facility] [id number] [place] [address] 60898- 6230 Jan, [facility] [id number] [place] [address] 96160 -8796 Nov, Abscess L02.91 [facility] [id number] [place] [address] 83902- 0242 Nov, Low back pain M54.5 [facility] [id number] [place] [address] 47506- 6917 Oct, Lumbago with sciatica, left side M54.42 [facility] [id number] [place] [address] [id number] Oct, [facility] [address] 58891- 9358 Oct, Carpal tunnel syndrome G56.00 [facility] [id number] [place] [address] [id number] Sep, Dental examination Z01.20 [facility] [id number] [place] [address] 69814- 0240 Aug, Carpal tunnel syndrome G56.00 [facility] [id number] [place] [address] 06156- 2359 July, [facility] [id number] [place] [address] 11838- 2952 July, [facility] [id number] [place] [address] 16113- 3590 July, Carpal tunnel syndrome G56.00 [facility] [id number] [place] [address] 76831- 7221 May, Carpal tunnel syndrome G56.00 and Cervical neuritis M54.12 [facility] [id number] [place] [address] 90092- 2538 May, [facility] [id number] [place] [address] 81867- 1071 Mar, [facility] [id number] [place] [address] 54197- 0038 Feb, [facility] [address] [place] [address] 8803 15 Feb, 2016 [facility] [id number] [place] [address] 15182- 9796 Feb, Low back pain M54.5 and Pain in left knee M25.562 [facility] [id number] [place] [address] 02837- 8201 Feb, Low back pain M54.5 [facility] [id number] [place] [address] 60850- 3434 Jan, Low back pain M54.5 [facility] [id number] [place] [address] 53478- 7893 Jan, Low back pain M54.5 [facility] [id number] [place] [address] 48240- 5622 Jan, [facility] [id number] [place] [address] 63760- 0492 Jan, [facility] [id number] [place] [address] 05806- 8257 Jan, [facility] [id number] [place] [address] 51498- 7326 Dec, Throat mass R22.1 [facility] [id number] [place] [address] 50120- 1122 Dec, Throat mass R22.1 [facility] [id number] [place] [address] 45985- 9667 Dec, Mass in neck R22.1 [facility] [id number] [place] [address] 59598- 2754 Dec, [facility] [id number] [place] [address] 10371- 4568 Dec, Cough R05 and Encounter for immunization Z23 [facility] [id number] [place] [address] 15315- 9950 Nov, Upper respiratory tract infection, unspecified type J06.9 [facility] [address] [address]- 0676 Nov, [facility] [id number] [place] [address] 78348 2546 Nov, [facility] [id number] [place] [address] 25226- 0894 Nov, Chondromalacia, left knee M94.262 [facility] [id number] [place] [address] 73223- 0872 Oct, [facility] [id number] [place] [address] 62036- 2145 Oct, [facility] [id number] [place] [address] 01675- 7229 Oct, Chondromalacia, left knee M94.262 [facility] [id number] [place] [address] 34152- 3059 Sep, [facility] [address] [address]- 7992 Aug, [facility] [id number] [place] [address] 92179- 7421 Aug, [facility] [address] [address] 1923 July, Chondromalacia, left knee M94.262 [facility] [address] [address]- 0730 July, [facility] [address] [address]- 9655 July, [facility] [address] [address]- 5661 Jun, Abscess L02.91 and Vaginal bleeding between periods N92.0 [facility] [id number] [place] [address] 38449- 4958 Jun, [facility] [id number] [place] [address] 38610- 8414 Jun, Pain in left knee M25.562 and Other chronic pain G89.29 [facility] [id number] [place] [address] 55564- 8719 Jun, Pain in left knee M25.562 and Other chronic pain G89.29 [facility] [id number] [place] [address] 48447- 1775 Jun, [facility] [id number] [place] [address] 59302- 7117 Jun, Low back pain M54.5 [facility] [id number] [place] [address] 49137- 5469 Jun, Pain in right knee M25.561 [facility] [address] 72118- 2952 Jun, [facility] [id number] [place] [address] 16653- 1298 Jun, Low back pain M54.5 [facility] [id number] [place] [address] 95356- 1261 May, Cervical neuritis M54.12 ; Thoracic neuritis M54.14 and Pain in right knee M25.561 [facility] [id number] [place] [address] 11199- 6814 May, care home use of drug Z79.899 [facility] [id number] [place] [address] 86585- 5882 Apr, Well woman exam Z01.419 and Thyroid enlarged E04.9 [facility] [id number] [place] [address] 53978- 0624 Apr, 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 ; Low back pain M54.5 and Endometrial hyperplasia N85.00 [facility] [address] [place] [address]- 4030 27 Mar, 2016 Well woman exam Z01.419 ; Encounter for [...] cancer Z80.41 and Dense breast tissue R92.2 [facility] [address] 66384- 2236 Mar, Acute sinusitis, recurrence not specified, unspecified location J01.90 [facility] [address] 63109- 4531 Mar, [facility] [address] 78060- 1040 Feb, [facility] [address] 04702- 1903 Dec, [facility] [id number] [place] [address] 95390- 6569 Nov, [facility] [id number] [place] [address] 27833- 6344 Nov, Sinusitis 473.9 [facility] [id number] [place] [address] 58284- 6122 Oct, [facility] [address] 89900- 2532 Sep, Lumbago 724.2 [facility] [id number] [place] [address] 41295- 2601 Sep, Upper respiratory infection 465.9 [facility] [address] 76940- 5459 Aug, Lumbago 724.2 [facility] [address] [address]- 5767 Aug, Abscess 682.9 [facility] [id number] [place] [address] 14574- 8060 Aug, Abscess and cellulitis 682.9 [facility] [id number] [place] [address] 74896- 2206 Aug, Insect bite of buttock, infected 911.9 [facility] [id number] [place] [address] 53848- 3610 July, Lumbago 724.2 [facility] [id number] [place] [address] 39746- 0845 July, [facility] [id number] [place] [address] 28817- 9590 July, Routine gynecological examination V72.31 ; Screen for STD ( sexually transmitted disease) V74.5 ; Routine physicl lab exam V72.62 and Vulvar abscess 616.4 [facility] [id number] [place] [address] 23747- 9440 July, [facility] [address] [address]- 3318 Jun, [facility] [address] [address]- 0725 Jun, [facility] [address] [address]- 1732 May, [facility] [id number] [place] [address] 72563- 5316 May, [facility] [address] [address]- 9097 May, [facility] [address] [address]- 4020 May, [facility] [place] [facility] [address] [id number] [place] [address]- 0981 Apr, 2014 [facility] [place] [facility] [address] [id number] [place] [address]- 4137 Apr, 2014 [facility] [place] [facility] [address] [id number] [place] [address]- 5677 Apr, 2014 [facility] [place] [facility] [address] [id number] [place] [address]- 0275 Apr, 2014 [facility] [place] [facility] [address] [id number] [place] [address]- 4022 Apr, 2014 [facility] [place] [facility] [address] [id number] [place] [address]- 3461 Apr, 2014 [facility] [place] [facility] [address] [facility] [id number] [place] [address]- 7152 Apr, [facility] [place] [facility] [address] [id number] [place] [address]- 2752 Apr, 2014 [facility] [place] [facility] [address] [id number] [place] [address]- 4739 Apr, [facility] [place] [facility] [address] [facility] [id number] [place] [address]- 8628 Apr, [facility] [place] [facility] [address] [facility] [id number] [place] [address]- 2215 Mar, [facility] [place] [facility] [address] [id number] [place] [address]- 3810 Mar, [facility] [place] [facility] [address] [id number] [place] [address]- 9601 Feb, [facility] [place] [facility] [address] [id number] [place] [address]- 5727 Feb, [facility] [place] [facility] [address] [facility] [id number] [place] [address]- 0602 Feb, [facility] [place] [facility] [address] [id number] [place] [address]- 7425 15 Feb, 2014 [facility] [place] [facility] [address] [id number] [place] [address]- 5896 Feb, [facility] [place] [facility] [address] [id number] [place] [address]- 2438 Feb, [facility] [place] [facility] [address] [id number] [place] [address]- 7953 Jan, [facility] [place] [facility] [address] [id number] [place] [address]- 1360 Jan, [facility] [place] [facility] [address] [id number] [place] [address]- 0690 Jan, [facility] [place] [facility] [address] [id number] [place] [address]- 4897 Jan, [facility] [place] [facility] [address] [id number] [place] [address]- 1114 Jan, [facility] [place] [facility] [address] [id number] [place] [address]- 8732 Jan, [facility] [place] [facility] [address] [id number] [place] [address]- 2678 Dec, [facility] [place] [facility] [address] [id number] [place] [address]- 0873 31 Dec, 2013 [facility] [place] [facility] [address] [id number] [place] [address]- 2022 31 Dec, 2013 [facility] [place] [facility] [address] [id number] [place] [address]- 4150 31 Dec, 2013 [facility] [place] [facility] [address] [id number] [place] [address]- 9951 15 Dec, 2013 [facility] [place] [facility] [address] [id number] [place] [address]- 3899 15 Dec, 2013 [facility] [place] [facility] [address] [id number] [place] [address]- 4317 Dec, [facility] [place] [facility] [address] [id number] [place] [address]- 2934 Dec, [facility] [place] [facility] [address] [id number] [place] [address]- 4213 Nov, [facility] [place] [facility] [address] [id number] [place] [address]- 8229 Nov, [facility] [place] [facility] [address] [id number] [place] [address]- 1202 Nov, [facility] [place] [facility] [address] [id number] [place] [address]- 1162 Nov, [facility] [place] [facility] [address] [id number] [place] [address]- 0332 Nov, [facility] [place] [facility] [address] [id number] [place] [address]- 4024 Oct, [facility] [place] [facility] [address] [id number] [place] [address]- 3547 Oct, [facility] [place] [facility] [address] [id number] [place] [address]- 2760 Oct, [facility] [place] [facility] [address] [id number] [place] [address]- 5084 Oct, [facility] [place] [facility] [address] [id number] [place] [address]- 0724 Oct, [facility] [place] [facility] [address] [id number] [address]- 7692 Sep, [facility] [place] [facility] [address] [id number] [place] [address]- 4547 Sep, [facility] [place] [facility] [address] [id number] [place] [address]- 5628 Sep, [facility] [place] [facility] [address] [id number] 9721 Sep, [facility] [place] [facility] [address] [id number] [place] [address]- 1692 Sep, [facility] [place] [facility] [address] [id number] [place] [address]- 4588 Sep, [facility] [place] [facility] [address] [id number] [place] [address]- 4527 Aug, [facility] [place] [facility] [address] [id number] [place] [address]- 3723 Aug, [facility] [place] [facility] [address] [id number] [place] [address]- 7268 Aug, [facility] [place] [facility] [address] [id number] [place] [address]- 7582 Aug, [facility] [place] [facility] [address] [id number] [place] [address]- 8503 Aug, [facility] [place] [facility] [address] [facility] [id number] [place] [address]- 6960 Aug, [facility] [place] [facility] [address] [facility] [id number] [place] [address]- 2525 Jun, [facility] [place] [facility] [address] [id number] [place] [address]- 4239 Jun, [facility] [place] [facility] [address] [facility] [id number] [place] [address]- 0133 May, [facility] [place] [facility] [address] [id number] [place] [address]- 9165 May, [facility] [place] [facility] [address] [facility] [id number] [place] [address]- 3144 Apr, [facility] [place] [facility] [address] [id number] [place] [address]- 7783 Apr, [facility] [place] [facility] [address] [id number] [place] [address]- 7768 Apr, [facility] [place] [facility] [address] [facility] [id number] [place] [address]- 9265 Apr, [facility] [place] [facility] [address] [id number] [place] [address]- 1377 Mar, [facility] [place] [facility] [address] [id number] [place] [address]- 3758 Mar, [facility] [place] [facility] [address] [id number] [place] [address]- 9061 Mar, [facility] [place] [facility] [address] [id number] [place] [address]- 9582 Mar, [facility] [place] [facility] [address] [id number] [place] [address]- 4900 Mar, [facility] [place] [facility] [address] [id number] [place] [address]- 5129 Mar, [facility] [place] [facility] [address] [id number] [place] [address]- 1718 Mar, [facility] [place] [facility] [address] [id number] [place] [address]- 2033 Mar, [facility] [place] [facility] [address] [id number] [place] [address]- 8105 Mar, [facility] [place] [facility] [address] [id number] [place] [address]- 7243 Mar, [facility] [place] [facility] [address] [id number] [place] [address]- 9406 Dec, [facility] [place] [facility] [address] [id number] [place] [address]- 4638 Dec, [facility] [place] [facility] [address] [id number] [place] [address]- 8485 Dec, [facility] [place] [facility] [address] [id number] [place] [address]- 8233 Dec, [facility] [place] [facility] [address] [id number] [place] [address]- 4771 Dec, [facility] [place] [facility] [address] [id number], [place] [address]- 4606 Dec, [facility] [address] [id number] [place] [address]- 3831 Nov, [facility] [address] [id number] [place] [address]- 5234 Jun, [facility] [address] [id number] [place] [address]- 8527 Jun, [facility] [place] [facility] [address] [id number] [place] [address]- 4661 Jun, [facility] [address] [id number] [place] [address]- 1176 May, [facility] [address] [id number] [place] [address]- 4297 May, [facility] [address] [id number] [place] [address]- 1784 Apr, [facility] [place] [facility] [address] [id number] [place] [address]- 1140 Mar, [facility] [address] [id number] [place] [address]- 4061 Mar, [facility] [place] [facility] [address] [id number] [place] [address]- 5420 Mar, [facility] [address] [id number], [place] [address]- 8833 Mar, [facility] [place] [facility] [address] [id number] [place] [address]- 0385 Mar, [facility] [place] [facility] [address] [id number] [place] [address]- 4651 Mar, [facility] [place] [facility] [address] [id number] [place] [address] Mar, [facility] [place] [facility] [address] [id number] [place] [address] Mar, [facility] [place] [facility] [address] [id number] [address] Mar, [facility] [address] [id number] [address] Mar, [facility] [id number] [address] Feb, [facility] [id number] [address] Feb, [facility] [id number] [address] Feb, [facility] [id number] [place] [address] Mar, [facility] [id number] [address] Feb, [facility] [id number] [address] Feb, IMMUNIZATIONS No Known Immunizations SOCIAL HISTORY Never Assessed REASON FOR VISIT Deuce Gonzalez f/u---patients wants referral for PT, PT says her lower back has gotten worse since the mary Arriaga MA PLAN OF CARE VITAL SIGNS Height 64 in 2016-10-20 Weight 128.1 lbs 2016-10-20 Temperature 98.1 degrees Fahrenheit 2016-10-20 Heart Rate 76 bpm 2016-10-20 Respiratory Rate 18 2016-10-20 BMI 21.99 kg/m2 2016-10-20 Blood pressure systolic 122 mmHg 2016-10-20 Blood pressure diastolic 74 mmHg 2016-10-20 MEDICATIONS Medication Instructions Dosage Frequency Start Date End Date Duration Status Xanax 1 MG Orally Twice a day as needed 1 tablet Active Wellbutrin XL 150 MG Orally Once in AM, once in afternoon 2 tablets Active [place] 7.5-325 MG Orally every 6 hrs. 1 tablet as needed Oct, 28 days Active RESULTS No Results PROCEDURES Procedure Date Ordered Result Body Site DRUG TEST PRSMV DIR OPT OBS Oct 20, 2016 INSTRUCTIONS MEDICATIONS ADMINISTERED No Known Medications [...]
--- OUTSIDE RECORDS SUMMARY | 2018-01-15 17:15 | XMS REPORT ---
Author Author MARTIN GUERRERO Organization [employer] Address Unknown Phone Unavailable Care Team Providers Care State Epidemiologist Name Role Phone MARTIN GUERRERO CP Unavailable [...] Date End Date Status Dosage [facility] [id number] 5-325 MG every 6 hrs. MUST LAST 30 DAYS May 13, 2014 1 tablet as needed Results No Known Results Summary Purpose [employer] Submission
--- OUTSIDE RECORDS SUMMARY | 2018-01-15 17:15 | XMS REPORT ---
Author Author DIAN PANDA [facility] Address [address] [place] [address] Care Team Providers Care Stock Handler Floorperson Name Role Phone DIAN PANDA Unavailable PROBLEMS Type Condition ICD9-CM Code OOG11-BN Code Onset Dates Condition Status SNOMED Code Assessment Chondromalacia, left knee M94.262 Nov, Active 27956812 Problem Pain in left knee M25.562 Active 60486777 Problem Other inflammatory polyneuropathies G61.89 Active 839356412 Problem Carpal tunnel syndrome G56.00 Active 53945855 Problem Malignant lymphoma of lymph nodes C85.90 Active 208568691 Problem Low back pain M54.5 Active 922456280 Problem Endometrial hyperplasia N85.00 Active 527845900 ALLERGIES Unknown Allergies SOCIAL HISTORY No smoking Hx information available PLAN OF CARE VITAL SIGNS Height 64 in 2015-11-04 Blood pressure systolic 124 mmHg 2015-11-04 Blood pressure diastolic 78 mmHg 2015-11-04 MEDICATIONS Unknown Medications RESULTS No Results PROCEDURES Procedure Date Ordered Related Diagnosis Body Site DRAIN/INJECT, JOINT/BURSA Nov 04, 2015 Office Visit, Est Pt., Level 3 Nov 04, 2015 DEPO MEDROL 80 MG/ML Nov 04, 2015 IMMUNIZATIONS No Known Immunizations
--- OUTSIDE RECORDS SUMMARY | 2018-01-15 17:16 | XMS REPORT ---
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
--- OUTSIDE RECORDS SUMMARY | 2018-01-15 17:18 | XMS REPORT | Continuity of Care Document ---
Author Author [facility] Organization [facility] Address Unknown Phone Unavailable Allergies Active Description Code Type Severity Reaction Onset Reported/Identified Relationship to Patient Clinical Status Yes No Known Drug Allergies [id number] Drug Allergy Unknown N/A 12/23/2012 Medications There is no data. 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 02/01/1021 EUGENIO WILKINS MD, Ot Z79.899 OTHER [facility] (CURRENT) DRUG THERAPY 02/01/1021 EUGENIO WILKINS MD, Ot Z80.3 FAMILY HISTORY OF MALIGNANT NEOPLASM OF 02/01/1021 EUGENIO WILKINS MD Ot Z92.3 PERSONAL HISTORY OF IRRADIATION 10/12/2010 V06.1 TDAP DX 10/12/2010 V06.8 PROQUAD (MMR/ VARICELLA) DX 10/12/2010 JOCELYN COBIAN DO V06.1 TDAP DX 10/12/2010 JOCELYN COBIAN DO V06.8 PROQUAD (MMR/VARICELLA) DX 10/12/2010 JOCELYN COBIAN DO V06.1 TDAP DX 10/12/2010 JOCELYN COBIAN DO V06.8 PROQUAD (MMR/VARICELLA) DX 10/12/2010 V06.1 TDAP DX 10/12/2010 V06.8 PROQUAD (MMR/ VARICELLA) DX 10/12/2010 COBIAN DO, JOCELYN K V06.1 TDAP DX 10/12/2010 COBIAN DO, JOCELYN K V06.8 PROQUAD (MMR/VARICELLA) DX 10/12/2010 SUNG RN OCCUPATIONAL HEALTH, YANETH R V06.1 TDAP DX 10/12/2010 SUNG RN OCCUPATIONAL HEALTH, YANETH R V06.8 PROQUAD (MMR/VARICELLA) DX 10/12/2010 JUWAN BARNARD MD V06.1 TDAP DX 10/12/2010 JUWAN BARNARD MD M V06.8 PROQUAD (MMR/VARICELLA) DX 10/12/2010 RICHARD RN OCCUPATIONAL HEALTH, TANVIR A V06.1 TDAP DX 10/12/2010 RICHARD RN OCCUPATIONAL HEALTH, TANVIR A V06.8 PROQUAD (MMR/VARICELLA) DX 10/12/2010 CESAR YON, MARTIN T V06.1 TDAP DX 10/12/2010 CESAR YON, MARTIN T V06.8 PROQUAD (MMR/VARICELLA) DX 10/12/2010 CESAR YON, MARTIN T V06.1 TDAP DX 10/12/2010 CESAR YON, MARTIN T V06.8 PROQUAD (MMR/VARICELLA) DX 10/12/2010 CESAR YON, MARTIN T V06.1 TDAP DX 10/12/2010 CESAR YON, MARTIN T V06.8 PROQUAD (MMR/VARICELLA) DX 10/12/2010 CESAR YON, MARTIN T V06.1 TDAP DX 10/12/2010 CESAR YON, MARTIN T V06.8 PROQUAD (MMR/VARICELLA) DX 10/12/2010 CESAR YON, MARTIN T V06.1 TDAP DX 10/12/2010 CESAR YON, MARTIN T V06.8 PROQUAD (MMR/VARICELLA) DX 10/12/2010 CESAR RN OCCUPATIONAL HEALTH, MARTIN T V06.1 TDAP DX 10/12/2010 CESAR YON, MARTIN T V06.8 PROQUAD (MMR/VARICELLA) DX 10/12/2010 CESAR YON, MARTIN T V06.1 TDAP DX 10/12/2010 CESAR YON, MARTIN T V06.8 PROQUAD (MMR/VARICELLA) DX 10/12/2010 [facility] JULIEN L V06.1 TDAP DX 10/12/2010 ALLIEL RN OCCUPATIONAL HEALTH, JULIEN L V06.8 PROQUAD (MMR/VARICELLA) DX 10/12/2010 ELMO RN OCCUPATIONAL HEALTH, ANALILIA R V06.1 TDAP DX 10/12/2010 ELMO RN OCCUPATIONAL HEALTH, ANALILIA R V06.8 PROQUAD (MMR/VARICELLA) DX 10/12/2010 ALMARAZ RN OCCUPATIONAL HEALTH, YANETH R V06.1 TDAP DX 10/12/2010 ALMARAZ RN OCCUPATIONAL HEALTH, YANETH R V06.8 PROQUAD (MMR/VARICELLA) DX 10/12/2010 ALMARAZ RN OCCUPATIONAL HEALTH, YANETH R V06.1 TDAP DX 10/12/2010 ALMARAZ RN OCCUPATIONAL HEALTH, YANETH R V06.8 PROQUAD (MMR/VARICELLA) DX 10/12/2010 MIREYA MALCOLM MD V06.1 TDAP DX 10/12/2010 MIREYA MALCOLM MD V06.8 PROQUAD (MMR/VARICELLA) DX 10/12/2010 MADL RN OCCUPATIONAL HEALTH, JULIEN L V06.1 TDAP DX 10/12/2010 MADL RN OCCUPATIONAL HEALTH, JULIEN L V06.8 PROQUAD (MMR/VARICELLA) DX 02/15/2011 V65.45 STD COUNSELING 02/15/2011 V76.10 BREAST CANCER SCREENING 02/15/2011 V76.2 CERVICAL CANCER SCREENING (PAP SMEAR) 02/15/2011 JOCELYN COBIAN DO V65.45 STD COUNSELING 02/15/2011 JOCELYN COBIAN DO V76.10 BREAST CANCER SCREENING 02/15/2011 JOCELYN COBIAN DO V76.2 CERVICAL CANCER SCREENING (PAP SMEAR) 02/15/2011 JOCELYN COBIAN DO V65.45 STD COUNSELING 02/15/2011 JOCELYN COBIAN DO V76.10 BREAST CANCER SCREENING 02/15/2011 JOCELYN COBIAN DO V76.2 CERVICAL CANCER SCREENING (PAP SMEAR) 02/15/2011 V65.45 STD COUNSELING 02/15/2011 V76.10 BREAST CANCER SCREENING 02/15/2011 V76.2 CERVICAL CANCER SCREENING (PAP SMEAR) 02/15/2011 JOCELYN COBIAN DO V65.45 STD COUNSELING 02/15/2011 JOCELYN COBIAN DO V76.10 BREAST CANCER SCREENING 02/15/2011 JOCELYN COBIAN DO V76.2 CERVICAL CANCER SCREENING (PAP SMEAR) 02/15/2011 YANETH ALMARAZ APRN R V65.45 STD COUNSELING 02/15/2011 YANETH ALMARAZ APRN R V76.10 BREAST CANCER SCREENING 02/15/2011 AYNETH ALMARAZ APRN R V76.2 CERVICAL CANCER SCREENING (PAP SMEAR) 02/15/2011 JUWAN BARNARD MD V65.45 STD COUNSELING 02/15/2011 JUWAN BARNARD MD V76.10 BREAST CANCER SCREENING 02/15/2011 JUWAN BARNARD MD V76.2 CERVICAL CANCER SCREENING (PAP SMEAR) 02/15/2011 TANVIR RAMOS APRN V65.45 STD COUNSELING 02/15/2011 TANVIR RAMOS APRN V76.10 BREAST CANCER SCREENING 02/15/2011 TANVIR RAMOS APRN A V76.2 CERVICAL CANCER SCREENING (PAP SMEAR) 02/15/2011 MARTIN GUERRERO APRN V65.45 STD COUNSELING 02/15/2011 MARTIN GUERRERO APRN V76.10 BREAST CANCER SCREENING 02/15/2011 MARTIN GUERRERO APRN V76.2 CERVICAL CANCER SCREENING (PAP SMEAR) 02/15/2011 MARTIN GUERRERO APRN V65.45 STD COUNSELING 02/15/2011 MARTIN GUERRERO APRN V76.10 BREAST CANCER SCREENING 02/15/2011 MARTIN GUERRERO APRN V76.2 CERVICAL CANCER SCREENING (PAP SMEAR) 02/15/2011 MARTIN GUERRERO APRN T V65.45 STD COUNSELING 02/15/2011 MARTIN GUERRERO APRN T V76.10 BREAST CANCER SCREENING 02/15/2011 MARTIN GUERRERO APRN V76.2 CERVICAL CANCER SCREENING (PAP SMEAR) 02/15/2011 MARTIN GUERRERO APRN V65.45 STD COUNSELING 02/15/2011 MARTIN GUERRERO APRN T V76.10 BREAST CANCER SCREENING 02/15/2011 MARTIN GUERRERO APRN V76.2 CERVICAL CANCER SCREENING (PAP SMEAR) 02/15/2011 MARTIN GUERRERO APRN T V65.45 STD COUNSELING 02/15/2011 MARTIN GUERRERO APRN T V76.10 BREAST CANCER SCREENING 02/15/2011 MARTIN GUERRERO APRN V76.2 CERVICAL CANCER SCREENING (PAP SMEAR) 02/15/2011 MARTIN GUERRERO APRN V65.45 STD COUNSELING 02/15/2011 MARTIN GUERRERO APRN V76.10 BREAST CANCER SCREENING 02/15/2011 MARTIN GUERRERO APRN V76.2 CERVICAL CANCER SCREENING (PAP SMEAR) 02/15/2011 MARTIN GUERRERO APRN V65.45 STD COUNSELING 02/15/2011 MARTIN GUERRERO APRN V76.10 BREAST CANCER SCREENING 02/15/2011 MARTIN GUERRERO APRN V76.2 CERVICAL CANCER SCREENING (PAP SMEAR) 02/15/2011 SARA SMITH APRNA L V65.45 STD COUNSELING 02/15/2011 SARA SMITH APRNA L V76.10 BREAST CANCER SCREENING 02/15/2011 SARAH ALSTON, JULIEN L V76.2 CERVICAL CANCER SCREENING (PAP SMEAR) 02/15/2011 ELMO ALSTON ANALILIA R V65.45 STD COUNSELING 02/15/2011 ELMO ALSTON ANALILIA R V76.10 BREAST CANCER SCREENING 02/15/2011 ELMO ALSTON ANALILIA R V76.2 CERVICAL CANCER SCREENING (PAP SMEAR) 02/15/2011 STONE ALMARAZ APRNIA R V65.45 STD COUNSELING 02/15/2011 SUNG ALSTON YANETH R V76.10 BREAST CANCER SCREENING 02/15/2011 ISRAEL ALMARAZ APRNRICIA R V76.2 CERVICAL CANCER SCREENING (PAP SMEAR) 02/15/2011 STONE ALMARAZ APRNIA R V65.45 STD COUNSELING 02/15/2011 ISRAEL ALMARAZ APRNRICIA R V76.10 BREAST CANCER SCREENING 02/15/2011 STONE ALMARAZ APRNIA R V76.2 CERVICAL CANCER SCREENING (PAP SMEAR) 02/15/2011 MIREYA MALCOLM MD V65.45 STD COUNSELING 02/15/2011 MIREYA MALCOLM MD V76.10 BREAST CANCER SCREENING 02/15/2011 MIREYA MALCOLM MD V76.2 CERVICAL CANCER SCREENING (PAP SMEAR) 02/15/2011 JULIEN SMITH APRN L V65.45 STD COUNSELING 02/15/2011 ASRA SMITH APRNA L V76.10 BREAST CANCER SCREENING 02/15/2011 PHYLLIS SMITH APRNWNYA L V76.2 CERVICAL CANCER SCREENING (PAP SMEAR) 02/29/2012 625.9 PELVIC PAIN 02/29/2012 626.2 EXCESSIVE OR FREQUENT MENSTRUATION 02/29/2012 788.63 URINARY URGENCY 02/29/2012 V74.5 STD SCREEN 02/29/2012 V76.12 MAMMOGRAM SCREENING 02/29/2012 COBIAN DO, JOCELYN K 625.9 PELVIC PAIN 02/29/2012 COBIAN DO, JOCELYN K 626.2 EXCESSIVE OR FREQUENT MENSTRUATION 02/29/2012 COBIAN DO, JOCELYN K 788.63 URINARY URGENCY 02/29/2012 COBIAN DO, JOCELYN K V74.5 STD SCREEN 02/29/2012 COBIAN DO, JOCELYN K V76.12 MAMMOGRAM SCREENING 02/29/2012 COBIAN DO, JOCELYN K 625.9 PELVIC PAIN 02/29/2012 COBIAN DO, JOCELYN K 626.2 EXCESSIVE OR FREQUENT MENSTRUATION 02/29/2012 COBIAN DO, JOCELYN K 788.63 URINARY URGENCY 02/29/2012 COBIAN DO, JOCELYN K V74.5 STD SCREEN 02/29/2012 COBIAN DO, JOCELYN K V76.12 MAMMOGRAM SCREENING 02/29/2012 625.9 PELVIC PAIN 02/29/2012 626.2 EXCESSIVE OR FREQUENT MENSTRUATION 02/29/2012 788.63 URINARY URGENCY 02/29/2012 V74.5 STD SCREEN 02/29/2012 V76.12 MAMMOGRAM SCREENING 02/29/2012 COBIAN DO, JOCELYN K 625.9 PELVIC PAIN 02/29/2012 COBIAN DO, JOCELYN K 626.2 EXCESSIVE OR FREQUENT MENSTRUATION 02/29/2012 COBIAN DO, JOCELYN K 788.63 URINARY URGENCY 02/29/2012 COBIAN DO, JOCELYN K V74.5 STD SCREEN 02/29/2012 COBIAN DO, JOCELYN K V76.12 MAMMOGRAM SCREENING 02/29/2012 STONE ALMARAZ APRNIA R 625.9 PELVIC PAIN 02/29/2012 ISRAEL ALMARAZ APRNRICIA R 626.2 EXCESSIVE OR FREQUENT MENSTRUATION 02/29/2012 SUNG ALSTON YANETH R 788.63 URINARY URGENCY 02/29/2012 ISRAEL ALMARAZ APRNRICIA R V74.5 STD SCREEN 02/29/2012 ISRAEL ALMARAZ APRNRICIA R V76.12 MAMMOGRAM SCREENING 02/29/2012 JUWAN BARNARD MD 625.9 PELVIC PAIN 02/29/2012 JUWAN BARNARD MD 626.2 EXCESSIVE OR FREQUENT MENSTRUATION 02/29/2012 JUWAN BARNARD MD 788.63 URINARY URGENCY 02/29/2012 JUWAN BARNARD MD V74.5 STD SCREEN 02/29/2012 JUWAN BARNARD MD V76.12 MAMMOGRAM SCREENING 02/29/2012 RICHARDLESLIE ALSTON, TANVIR A 625.9 PELVIC PAIN 02/29/2012 RICHARD APRN, TANVIR A 626.2 EXCESSIVE OR FREQUENT MENSTRUATION 02/29/2012 RICHARDTANVIR Jaramillo APRN A 788.63 URINARY URGENCY 02/29/2012 RICHARD APRN, TANVIR A V74.5 STD SCREEN 02/29/2012 RICHARDTANVIR Jaramillo APRN A V76.12 MAMMOGRAM SCREENING 02/29/2012 MARTIN GUERRERO APRN T 625.9 PELVIC PAIN 02/29/2012 MARTIN GUERRERO APRN T 626.2 EXCESSIVE OR FREQUENT MENSTRUATION 02/29/2012 MARTIN GUERRERO APRN T 788.63 URINARY URGENCY 02/29/2012 MARTIN GUERRERO APRN T V74.5 STD SCREEN 02/29/2012 MARTIN GUERRERO APRN T V76.12 MAMMOGRAM SCREENING 02/29/2012 MARTIN GUERRERO APRN T 625.9 PELVIC PAIN 02/29/2012 MARTIN GUERRERO APRN T 626.2 EXCESSIVE OR FREQUENT MENSTRUATION 02/29/2012 MARTIN GUERRERO APRN T 788.63 URINARY URGENCY 02/29/2012 MARTIN GUERRERO APRN T V74.5 STD SCREEN 02/29/2012 MARTIN GUERRERO APRN T V76.12 MAMMOGRAM SCREENING 02/29/2012 MARTIN GUERRERO APRN T 625.9 PELVIC PAIN 02/29/2012 MARTIN GUERRERO APRN T 626.2 EXCESSIVE OR FREQUENT MENSTRUATION 02/29/2012 MARTIN GUERRERO APRN T 788.63 URINARY URGENCY 02/29/2012 MARTIN GUERRERO APRN T V74.5 STD SCREEN 02/29/2012 MARTIN GUERRERO APRN T V76.12 MAMMOGRAM SCREENING 02/29/2012 MARTIN GUERRERO APRN T 625.9 PELVIC PAIN 02/29/2012 MARTIN GUERRERO APRN T 626.2 EXCESSIVE OR FREQUENT MENSTRUATION 02/29/2012 MARTIN GUERRERO APRN T 788.63 URINARY URGENCY 02/29/2012 MARTIN GUERRERO APRN T V74.5 STD SCREEN 02/29/2012 MARTIN GUERRERO APRN T V76.12 MAMMOGRAM SCREENING 02/29/2012 CESAR RN OCCUPATIONAL HEALTH, MARTIN T 625.9 PELVIC PAIN 02/29/2012 CESAR YON, MARTIN T 626.2 EXCESSIVE OR FREQUENT MENSTRUATION 02/29/2012 CESAR YON, MARTIN T 788.63 URINARY URGENCY 02/29/2012 CESAR YON, MARTIN T V74.5 STD SCREEN 02/29/2012 MARTIN GUERRERO APRN T V76.12 MAMMOGRAM SCREENING 02/29/2012 CESAR ALSTON MARTIN T 625.9 PELVIC PAIN 02/29/2012 CESAR YON, MARTIN T 626.2 EXCESSIVE OR FREQUENT MENSTRUATION 02/29/2012 CESAR YON, MARTIN T 788.63 URINARY URGENCY 02/29/2012 CESAR YON, MARTIN T V74.5 STD SCREEN 02/29/2012 CESAR ALSTON MARTIN T V76.12 MAMMOGRAM SCREENING 02/29/2012 MARTIN GUERRERO APRN T 625.9 PELVIC PAIN 02/29/2012 MARTIN GUERRERO APRN T 626.2 EXCESSIVE OR FREQUENT MENSTRUATION 02/29/2012 MARTIN GUERRERO APRN T 788.63 URINARY URGENCY 02/29/2012 CESAR ALSTON MARTIN T V74.5 STD SCREEN 02/29/2012 CESAR ALSTON MARTIN T V76.12 MAMMOGRAM SCREENING 02/29/2012 SARAH RN OCCUPATIONAL HEALTH, JULIEN L 625.9 PELVIC PAIN 02/29/2012 SARAH RN OCCUPATIONAL HEALTH, JULIEN L 626.2 EXCESSIVE OR FREQUENT MENSTRUATION 02/29/2012 SARAH RN OCCUPATIONAL HEALTH, JULIEN L 788.63 URINARY URGENCY 02/29/2012 SARAH RN OCCUPATIONAL HEALTH, JULIEN L V74.5 STD SCREEN 02/29/2012 SARAH RN OCCUPATIONAL HEALTH, JULIEN L V76.12 MAMMOGRAM SCREENING 02/29/2012 ELMO RN OCCUPATIONAL HEALTH, ANALILIA R 625.9 PELVIC PAIN 02/29/2012 ELMO RN OCCUPATIONAL HEALTH, ANALILIA R 626.2 EXCESSIVE OR FREQUENT MENSTRUATION 02/29/2012 ELMO RN OCCUPATIONAL HEALTH, ANALILIA R 788.63 URINARY URGENCY 02/29/2012 ELMO RN OCCUPATIONAL HEALTH, ANALILIA R V74.5 STD SCREEN 02/29/2012 ELMO RN OCCUPATIONAL HEALTH, ANALILIA R V76.12 MAMMOGRAM SCREENING 02/29/2012 SUNG YON, YANETH R 625.9 PELVIC PAIN 02/29/2012 SUNG YON, YANETH R 626.2 EXCESSIVE OR FREQUENT MENSTRUATION 02/29/2012 SUNG RN OCCUPATIONAL HEALTH, YANETH R 788.63 URINARY URGENCY 02/29/2012 ALMARAZ RN OCCUPATIONAL HEALTH, YANETH R V74.5 STD SCREEN 02/29/2012 ALMARAZ RN OCCUPATIONAL HEALTH, YANETH R V76.12 MAMMOGRAM SCREENING 02/29/2012 ALMARAZ RN OCCUPATIONAL HEALTH, YANETH R 625.9 PELVIC PAIN 02/29/2012 ALMARAZ RN OCCUPATIONAL HEALTH, YANETH R 626.2 EXCESSIVE OR FREQUENT MENSTRUATION 02/29/2012 ALMARAZ RN OCCUPATIONAL HEALTH, YANETH R 788.63 URINARY URGENCY 02/29/2012 SUNG YON, YANETH R V74.5 STD SCREEN 02/29/2012 SUNG ALSTON, YANETH R V76.12 MAMMOGRAM SCREENING 02/29/2012 MIREYA MALCOLM MD 625.9 PELVIC PAIN 02/29/2012 MIREYA MALCOLM MD 626.2 EXCESSIVE OR FREQUENT MENSTRUATION 02/29/2012 MIREYA MALCOLM MD 788.63 URINARY URGENCY 02/29/2012 MIREYA MALCOLM MD V74.5 STD SCREEN 02/29/2012 MIREYA MALCOLM MD V76.12 MAMMOGRAM SCREENING 02/29/2012 SARAH ALSTON JULIEN L 625.9 PELVIC PAIN 02/29/2012 SARAH ALSTON, JULIEN L 626.2 EXCESSIVE OR FREQUENT MENSTRUATION 02/29/2012 SARAH ALSTON, JULIEN L 788.63 URINARY URGENCY 02/29/2012 SARAH ALSTON, JULIEN L V74.5 STD SCREEN 02/29/2012 SARAH ALSTON JULIEN L V76.12 MAMMOGRAM SCREENING 03/29/2012 JOCELYN COBIAN DO K 621.30 ENDOMETRIAL HYPERPLASIA UNSPECIFIED 03/29/2012 621.30 ENDOMETRIAL HYPERPLASIA UNSPECIFIED 03/29/2012 JOCELYN COBIAN DO K 621.30 ENDOMETRIAL HYPERPLASIA UNSPECIFIED 03/29/2012 SUNG ALSTON YANETH R 621.30 ENDOMETRIAL HYPERPLASIA UNSPECIFIED 03/29/2012 JUWAN BARNARD MD 621.30 ENDOMETRIAL HYPERPLASIA UNSPECIFIED 03/29/2012 TANVIR RAMOS APRN 621.30 ENDOMETRIAL HYPERPLASIA UNSPECIFIED 03/29/2012 MARTIN GUERRERO APRN 621.30 ENDOMETRIAL HYPERPLASIA UNSPECIFIED 03/29/2012 CESAR RN OCCUPATIONAL HEALTH, MARTIN T 621.30 ENDOMETRIAL HYPERPLASIA UNSPECIFIED 03/29/2012 CESAR YON, MARTIN T 621.30 ENDOMETRIAL HYPERPLASIA UNSPECIFIED 03/29/2012 CESAR ALSTON, MARTIN T 621.30 ENDOMETRIAL HYPERPLASIA UNSPECIFIED 03/29/2012 CESAR YON, MARTIN T 621.30 ENDOMETRIAL HYPERPLASIA UNSPECIFIED 03/29/2012 CESAR YON, MARTIN T 621.30 ENDOMETRIAL HYPERPLASIA UNSPECIFIED 03/29/2012 CESAR ALSTON, MARTIN T 621.30 ENDOMETRIAL HYPERPLASIA UNSPECIFIED 03/29/2012 SARAH RN OCCUPATIONAL HEALTH, JULIEN L 621.30 ENDOMETRIAL HYPERPLASIA UNSPECIFIED 03/29/2012 ELMO RN OCCUPATIONAL HEALTH, ANALILIA R 621.30 ENDOMETRIAL HYPERPLASIA UNSPECIFIED 03/29/2012 SUNG RN OCCUPATIONAL HEALTH, YANETH R 621.30 ENDOMETRIAL HYPERPLASIA UNSPECIFIED 03/29/2012 SUNG YON, YANETH R 621.30 ENDOMETRIAL HYPERPLASIA UNSPECIFIED 03/29/2012 MIREYA MALCOLM MD 621.30 ENDOMETRIAL HYPERPLASIA UNSPECIFIED 03/29/2012 SARAH RN OCCUPATIONAL HEALTH, JULIEN L 621.30 ENDOMETRIAL HYPERPLASIA UNSPECIFIED 05/28/2012 611.89 OTHER SPECIFIED DISORDERS OF BREAST 05/28/2012 JOCELYN COBIAN DO 611.89 OTHER SPECIFIED DISORDERS OF BREAST 05/28/2012 SUNG ALSTON, YANETH R 611.89 OTHER SPECIFIED DISORDERS OF BREAST 05/28/2012 JUWAN BARNARD MD 611.89 OTHER SPECIFIED DISORDERS OF BREAST 05/28/2012 TANVIR RAMOS APRN 611.89 OTHER SPECIFIED DISORDERS OF BREAST 05/28/2012 MARTIN GUERRERO APRN T 611.89 OTHER SPECIFIED DISORDERS OF BREAST 05/28/2012 MARTIN GUERRERO APRN T 611.89 OTHER SPECIFIED DISORDERS OF BREAST 05/28/2012 MARTIN GUERRERO APRN T 611.89 OTHER SPECIFIED DISORDERS OF BREAST 05/28/2012 MARTIN GUERRERO APRN T 611.89 OTHER SPECIFIED DISORDERS OF BREAST 05/28/2012 MARTIN GUERRERO APRN T 611.89 OTHER SPECIFIED DISORDERS OF BREAST 05/28/2012 MARTIN GUERRERO APRN T 611.89 OTHER SPECIFIED DISORDERS OF BREAST 05/28/2012 MARTIN GUERRERO APRN 611.89 OTHER SPECIFIED DISORDERS OF BREAST 05/28/2012 SARAH ALSTON, JULIEN L 611.89 OTHER SPECIFIED DISORDERS OF BREAST 05/28/2012 ELMO RN OCCUPATIONAL HEALTH, ANALILIA R 611.89 OTHER SPECIFIED DISORDERS OF BREAST 05/28/2012 SUNG RN OCCUPATIONAL HEALTH, YANETH R 611.89 OTHER SPECIFIED DISORDERS OF BREAST 05/28/2012 SUNG ALSTON, AYNETH R 611.89 OTHER SPECIFIED DISORDERS OF BREAST 05/28/2012 MIREYA MALCOLM MD 611.89 OTHER SPECIFIED DISORDERS OF BREAST 05/28/2012 SARAH ALSTON, JULIEN L 611.89 OTHER SPECIFIED DISORDERS OF BREAST 2012 ARANZA DO, JOCELYN K 611.71 BREAST PAIN 2012 SUNG ALSTON, YANETH R 611.71 BREAST PAIN 2012 JUWAN BARNARD MD 611.71 BREAST PAIN 2012 TANVIR RAMOS APRN A 611.71 BREAST PAIN 2012 CESAR ALSTON, MARTIN T 611.71 breast pain 2012 CESAR RN OCCUPATIONAL HEALTH, MARTIN T 611.71 breast pain 2012 CESAR RN OCCUPATIONAL HEALTH, MARTIN T 611.71 BREAST PAIN 2012 CESAR RN OCCUPATIONAL HEALTH, MARTIN T 611.71 BREAST PAIN 2012 CESAR RN OCCUPATIONAL HEALTH, MARITN T 611.71 BREAST PAIN 2012 CESAR RN OCCUPATIONAL HEALTH, MARTIN T 611.71 BREAST PAIN 2012 CESAR RN OCCUPATIONAL HEALTH, MARTIN T 611.71 BREAST PAIN 2012 SARAH ALSTON, JULIEN L 611.71 BREAST PAIN 2012 ELMO ALSTON, ANALILIA R 611.71 BREAST PAIN 2012 ISRAEL ALMARAZ APRNRICIA R 611.71 BREAST PAIN 2012 SUNG ALSTON YANETH R 611.71 BREAST PAIN 2012 MIREYA MALCOLM MD 611.71 BREAST PAIN 2012 SARAH ALSTON, JULIEN L 611.71 BREAST PAIN 12/12/2012 JUWAN BARNARD MD 202.88 OTHER MALIGNANT LYMPHOMAS INVOLVING LYMPH NODES OF MULTIPLE SITES 12/12/2012 JUWAN BARNARD MD 782.1 skin: a rash [as Sx] 12/12/2012 TANVIR RAMOS APRN 202.88 OTHER MALIGNANT LYMPHOMAS INVOLVING LYMPH NODES OF MULTIPLE SITES 12/12/2012 TANVIR RAMOS APRN 782.1 skin: a rash [as Sx] 12/12/2012 MARTIN GUERRERO APRN 202.88 OTHER MALIGNANT LYMPHOMAS INVOLVING LYMPH NODES OF MULTIPLE SITES 12/12/2012 MARTIN GUERRERO APRN 782.1 skin: a rash [as Sx] 12/12/2012 MARTIN GUERRERO APRN 202.88 OTHER MALIGNANT LYMPHOMAS INVOLVING LYMPH NODES OF MULTIPLE SITES 12/12/2012 MARTIN GUERRERO APRN 782.1 skin: a rash [as Sx] 12/12/2012 MARTIN GUERRERO APRN 202.88 OTHER MALIGNANT LYMPHOMAS INVOLVING LYMPH NODES OF MULTIPLE SITES 12/12/2012 MARTIN GUERRERO APRN 782.1 skin: a rash [as Sx] 12/12/2012 MARTIN GUERRERO APRN 202.88 OTHER MALIGNANT LYMPHOMAS INVOLVING LYMPH NODES OF MULTIPLE SITES 12/12/2012 MARTIN GUERRERO APRN 782.1 SKIN: A RASH [ SX] 12/12/2012 MARTIN GUERRERO APRN 202.88 OTHER MALIGNANT LYMPHOMAS INVOLVING LYMPH NODES OF MULTIPLE SITES 12/12/2012 MARTIN GUERRERO APRN 782.1 SKIN: A RASH [ SX] 12/12/2012 MARTIN GUERRERO APRN 202.88 OTHER MALIGNANT LYMPHOMAS INVOLVING LYMPH NODES OF MULTIPLE SITES 12/12/2012 MARTIN GUERRERO APRN 782.1 SKIN: A RASH [ SX] 12/12/2012 MARTIN GUERRERO APRN 202.88 OTHER MALIGNANT LYMPHOMAS INVOLVING LYMPH NODES OF MULTIPLE SITES 12/12/2012 MARTIN GUERRERO APRN 782.1 SKIN: A RASH [ SX] 12/12/2012 JULIEN SMITH APRN L 202.88 OTHER MALIGNANT LYMPHOMAS INVOLVING LYMPH NODES OF MULTIPLE SITES 12/12/2012 JULIEN SMITH APRN L 782.1 SKIN: A RASH [ SX] 12/12/2012 ANALILIA BORREGO APRN R 202.88 OTHER MALIGNANT LYMPHOMAS INVOLVING LYMPH NODES OF MULTIPLE SITES 12/12/2012 ANALILIA BORREGO APRN R 782.1 SKIN: A RASH [ SX] 12/12/2012 YANETH ALMARAZ APRN R 202.88 OTHER MALIGNANT LYMPHOMAS INVOLVING LYMPH NODES OF MULTIPLE SITES 12/12/2012 YANETH ALMARAZ APRN R 782.1 SKIN: A RASH [ SX] 12/12/2012 STONE ALMARAZ APRNIA R 202.88 OTHER MALIGNANT LYMPHOMAS INVOLVING LYMPH NODES OF MULTIPLE SITES 12/12/2012 YANETH ALMARAZ APRN R 782.1 SKIN: A RASH [ SX] 12/12/2012 MIREYA MALCOLM MD 202.88 OTHER MALIGNANT LYMPHOMAS INVOLVING LYMPH NODES OF MULTIPLE SITES 12/12/2012 MIREYA MALCOLM MD 782.1 SKIN: A RASH [ SX] 12/12/2012 SARA SMITH APRNA L 202.88 OTHER MALIGNANT LYMPHOMAS INVOLVING LYMPH NODES OF MULTIPLE SITES 12/12/2012 JULIEN SMITH APRN L 782.1 SKIN: A RASH [ SX] 12/23/2012 CAROL GIBBONS, SANTOS Mancilla Ot 202.80 OTH LYMPHOMAS EXTRANODAL SOLID ORGAN U 12/23/2012 CAROL GIBBONS, SANTOS Mancilla Ot V58.0 ENCOUNTER FOR RADIOTHERAPY 12/23/2012 TOMMIE CONSTANTINO RN OCCUPATIONAL HEALTH Ot 724.2 LUMBAGO 12/23/2012 TOMMIE CONSTANTION RN OCCUPATIONAL HEALTH Ot 724.4 LUMBOSACRAL NEURITIS NOS 12/26/2012 EVON GIBBONS, JUWAN Jacques 724.2 LUMBAGO 12/26/2012 TANVIR RAMOS APRN A 724.2 LUMBAGO 12/26/2012 MARTIN GUERRERO APRN T 724.2 LUMBAGO 12/26/2012 MARTIN GUERRERO APRN T 724.2 LUMBAGO 12/26/2012 MARTIN GUERRERO APRN T 724.2 LUMBAGO 12/26/2012 MARTIN GUERRERO APRN T 724.2 LUMBAGO 12/26/2012 MARTIN GUERRERO APRN T 724.2 LUMBAGO 12/26/2012 MARTIN GUERRERO APRN T 724.2 LUMBAGO 12/26/2012 MARTIN GUERRERO APRN T 724.2 LUMBAGO 12/26/2012 JULIEN SMITH APRN L 724.2 LUMBAGO 12/26/2012 AIYANA BORREGO APRNINA R 724.2 LUMBAGO 12/26/2012 YANETH ALMARAZ APRN R 724.2 LUMBAGO 12/26/2012 YANETH ALMARAZ APRN R 724.2 LUMBAGO 12/26/2012 MIREYA MALCOLM MD 724.2 LUMBAGO 12/26/2012 SARAH ALSTON JULIEN Mariola 724.2 LUMBAGO 03/10/2013 RICHARD ALSTON, TANVIR A 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 03/10/2013 TANVIR RAMOS APRN A 465.9 ACUTE UPPER RESPIRATORY INFECTIONS OF UNSPECIFIED SITE 03/10/2013 TANVIR RAMOS APRN A V72.31 BASE FILLER EXAM, ROUTINE 03/10/2013 MARTIN GUERRERO APRN T 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 03/10/2013 MARTIN GUERRERO APRN T 465.9 ACUTE UPPER RESPIRATORY INFECTIONS OF UNSPECIFIED SITE 03/10/2013 MARTIN GUERRERO APRN T V72.31 BASE FILLER EXAM, ROUTINE 03/10/2013 MARTIN GUERRERO APRN T 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 03/10/2013 MARTIN GUERRERO APRN T 465.9 ACUTE UPPER RESPIRATORY INFECTIONS OF UNSPECIFIED SITE 03/10/2013 MARTIN GUERRERO APRN T V72.31 BASE FILLER EXAM, ROUTINE 03/10/2013 MARTIN GUERRERO APRN T 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 03/10/2013 MARTIN GUERRERO APRN T 465.9 ACUTE UPPER RESPIRATORY INFECTIONS OF UNSPECIFIED SITE 03/10/2013 MARTIN GUERRERO APRN T V72.31 BASE FILLER EXAM, ROUTINE 03/10/2013 MARTIN GUERRERO APRN T 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 03/10/2013 MARTIN GUERRERO APRN T 465.9 ACUTE UPPER RESPIRATORY INFECTIONS OF UNSPECIFIED SITE 03/10/2013 MARTIN GUERRERO APRN T V72.31 BASE FILLER EXAM, ROUTINE 03/10/2013 MARTIN GUERRERO APRN T 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 03/10/2013 MARTIN GUERRERO APRN T 465.9 ACUTE UPPER RESPIRATORY INFECTIONS OF UNSPECIFIED SITE 03/10/2013 MARTIN GUERRERO APRN T V72.31 BASE FILLER EXAM, ROUTINE 03/10/2013 MARTIN GUERRERO APRN T 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 03/10/2013 MARTIN GUERRERO APRN T 465.9 ACUTE UPPER RESPIRATORY INFECTIONS OF UNSPECIFIED SITE 03/10/2013 MARTIN GUERRERO APRN T V72.31 BASE FILLER EXAM, ROUTINE 03/10/2013 MARTIN GUERRERO APRN T 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 03/10/2013 MARTIN GUERRERO APRN 465.9 ACUTE UPPER RESPIRATORY INFECTIONS OF UNSPECIFIED SITE 03/10/2013 MARTIN GUERRERO APRN V72.31 BASE FILLER EXAM, ROUTINE 03/10/2013 MADL RN OCCUPATIONAL HEALTH, JULIEN L 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 03/10/2013 MADL RN OCCUPATIONAL HEALTH, JULIEN L 465.9 ACUTE UPPER RESPIRATORY INFECTIONS OF UNSPECIFIED SITE 03/10/2013 MADL RN OCCUPATIONAL HEALTH, JULIEN L V72.31 BASE FILLER EXAM, ROUTINE 03/10/2013 ELMO RN OCCUPATIONAL HEALTH, ANALILIA R 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 03/10/2013 ELMO RN OCCUPATIONAL HEALTH, ANALILIA R 465.9 ACUTE UPPER RESPIRATORY INFECTIONS OF UNSPECIFIED SITE 03/10/2013 ELMO RN OCCUPATIONAL HEALTH, ANALILIA R V72.31 BASE FILLER EXAM, ROUTINE 03/10/2013 SUNG ALSTON YANETH R 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 03/10/2013 SUNG ALSTON YANETH R 465.9 ACUTE UPPER RESPIRATORY INFECTIONS OF UNSPECIFIED SITE 03/10/2013 SNUG ALSTON YANETH R V72.31 BASE FILLER EXAM, ROUTINE 03/10/2013 SUNG ALSTON YANETH R 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 03/10/2013 SUNG ALSTON YANETH R 465.9 ACUTE UPPER RESPIRATORY INFECTIONS OF UNSPECIFIED SITE 03/10/2013 SUNG ALSTON, YANETH R V72.31 BASE FILLER EXAM, ROUTINE 03/10/2013 MIREYA MALCOLM MD 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 03/10/2013 MIREYA MALCOLM MD 465.9 ACUTE UPPER RESPIRATORY INFECTIONS OF UNSPECIFIED SITE 03/10/2013 MIREYA MALCOLM MD V72.31 BASE FILLER EXAM, ROUTINE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
[2018-01-15] MEDS ORDERED: KETOROLAC 60 MG/2 ML VIAL IM STA (17:32)
[2018-01-15] MEDS ORDERED: CYCL10TA9 PO (17:34)
--- NOTE | 2018-01-15 17:39 | ED Back Pain ---
General Stated Complaint: BACK PAIN, PULLED MUSCLE Source of Information: Patient Exam Limitations: No Limitations History of Present Illness Date Seen by Provider: Jan 15, 2018 Time Seen by Provider: 17:20 Initial Comments Here with acute onset of mid back pain on the left side after sitting up from a chair. Onset yesterday. Persisted overnight until today. She did try ibuprofen last night and this morning. Denies any fall or injury otherwise. Location: Paraspinous Muscles Timing/Duration: 1-2 Days Severity: Moderate Pain/Injury Location: Back Radiation: Other (lung left side of the back) Method of Injury: Unknown Modifying Factors: Improves With Immobilization; Worse With Movement Associated Symptoms: muscle spasms; No fever, No weakness, No numbness in legs/ feet, No tingling in legs/feet, No sensory/motor loss, No loss of bladder control, No loss of bowel control Allergies and Home Medications Allergies Coded Allergies: No Known Drug Allergies (Unverified , 12/23/12) Home Medications Alprazolam 0.5 Mg Tablet, 1 TAB PO PRN, (Reported) Cyclobenzaprine Hcl 10 Mg Tablet, 1 EACH PO Q8HR PRN PRN for spasms Prescribed by: BRIGITTE SUAREZ on 10/28/13 1525 Hydrocodone Bit/Acetaminophen 1 Each Tablet, 1 EA PO Q6H PRN for MILD PAIN Prescribed by: TOMMIE CONSTANTINO on 06/20/13 1802 Hydrocodone Bit/Acetaminophen 1 Each Tablet, 1 EACH PO Q6HR PRN PRN for PAIN Prescribed by: BRIGITTE SUAREZ on 10/28/13 1525 Prednisone 20 Mg Tab, 40 MG PO DAILY Prescribed by: BRIGITTE SUAREZ on 10/28/13 1525 Patient Home Medication List Home Medication List Reviewed: Yes Review of Systems Constitutional: see HPI; No chills, No fever Respiratory: no symptoms reported Cardiovascular: no symptoms reported Musculoskeletal: see HPI, back pain, muscle pain, muscle stiffness Skin: no symptoms reported Psychiatric/Neurological: No Symptoms Reported Past Jizsdfc-Cgvadg-Dfrbrq Hx Past Med/Social Hx: Reviewed Nursing Past Med/Soc Hx Patient Social History Alcohol Use: Denies Use Recreational Drug Use: No Smoking Status: Never a Smoker Recent Foreign Travel: No Contact w/Someone Who Travel: No Past Medical History Surgeries: Yes Breast, Tubal Ligation Cardiac: No Neurological: No Reproductive Disorders: No 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 oz. 63.074819bh; BMI Method:Stated General Appearance: No Apparent Distress, WD/WN Cardiovascular: Regular Rate, Rhythm, No Murmur Respiratory: Lungs Clear, Normal Breath Sounds Back: No CVA Tenderness, No Vertebral Tenderness, Muscle Spasm, Other (tender along the lateral aspect of the mid spine in the mid and lower thoracic region. No obvious injury or deformity.) Neurologic/Psychiatric: Alert, Oriented x3 Skin: Normal Color, Warm/Dry Progress/Results/Core Measures Results/Orders My Orders Orders - BRIGITTE SUAREZ MD Ketorolac Injection (Toradol Injection) (01/15/18 17:32) Progress Progress Note : Progress Note Seen and evaluated. Toradol 60 mg IM. Discharged home with return precautions. Patient verbalize understanding instructions and agreement with plan. Departure Impression Primary Impression: Mid back pain on left side Disposition: 01 HOME, SELF-CARE Condition: Stable Departure-Patient Inst. Decision time for Depature: 17:33 Referrals: [facility] (PCP) Primary Care Physician MARTIN GUERRERO (Family) Primary Care Physician Patient Instructions: Upper Back Pain (DC) Add. Discharge Instructions: You may take ibuprofen 600 mg every 8 hours as needed for pain. You may also take Tylenol/acetaminophen 1000 mg every 8 hours as needed for pain. You may use jmzu-arp-rbzrytu preparations such as icy hot with lidocaine or Aspercreme with lidocaine or similar items to area of concern. Take other medications as directed. Return for worse pain, fever, vomiting, weakness, breathing problems or other concerns as needed. Follow-up with your DrStephane in a few days for recheck as needed. Scripts Cyclobenzaprine HCl (Cyclobenzaprine HCl) 10 Mg Tablet 10 MG PO Q8H PRN for SPASMS, #15 TAB 0 Refills Prov: BRIGITTE SUAREZ MD 01/15/18 BRIGITTE SUAREZ MD Jan 15, 2018 17:39
[2018-01-15 17:54] VITALS: BP 164/92
== END 2018-01-15 17:54 | disposition home or self-care (01) ==
LOC: EDUNIT# 17:02 → ER 17:03
DX: M54.9 Dorsalgia, unspecified (principal); F41.9 Anxiety disorder, unspecified; F32.9 Major depressive disorder, single episode, unspecified; Z98.890 Other specified postprocedural states; Z79.52 Long term (current) use of systemic steroids; Z98.51 Tubal ligation status
CPT/HCPCS: 96372; 99284

== ENCOUNTER → 2018-04-30 | Outpatient (CLI) | payer OTHER ==
[2018-04-30 09:30] LABS: BASOPHILS % (AUTO) 1 % (0-10); EOSINOPHILS # (AUTO) 0.5 10^3/uL (0.0-0.3); EOSINOPHILS % (AUTO) 8 % (0-10); HEMATOCRIT 35 % (35-52); HEMOGLOBIN 11.4 G/DL (11.5-16.0); LYMPHOCYTES # (AUTO) 1.4 X 10^3 (1.0-4.0); LYMPHOCYTES % (AUTO) 23 % (12-44); MEAN CORPUSCULAR HEMOGLOBIN 28 PG (25-34); MEAN CORPUSCULAR HGB CONC 33 G/DL (32-36); MEAN CORPUSCULAR VOLUME 87 FL (80-99); MEAN PLATELET VOLUME 9.1 FL (7.4-10.4); MONOCYTES # (AUTO) 0.7 X 10^3 (0.0-1.0); MONOCYTES % (AUTO) 12 % (0-12); NEUTROPHILS # (AUTO) 3.5 X 10^3 (1.8-7.8); NEUTROPHILS % (AUTO) 57 % (42-75); PLATELET COUNT 334 10^3/uL (130-400); RED CELL DISTRIBUTION WIDTH 13.6 % (10.0-14.5); WHITE BLOOD COUNT 6.2 10^3/uL (4.3-11.0)
[2018-04-30 09:52] LABS: ALANINE AMINOTRANSFERASE 21 U/L (0-55); ALBUMIN 4.2 GM/DL (3.2-4.5); ALKALINE PHOSPHATASE 57 U/L (40-136); BILIRUBIN,TOTAL 0.2 MG/DL (0.1-1.0); BUN/CREATININE RATIO 17; CALCIUM 8.8 MG/DL (8.5-10.1); CARBON DIOXIDE 23 MMOL/L (21-32); CHLORIDE 109 MMOL/L (98-107); CREATININE SERUM 0.81 MG/DL (0.60-1.30); GFR ESTIMATED > 60; GLUCOSE 110 MG/DL (70-105); SODIUM 138 MMOL/L (135-145)
== END ==
LOC: ONC 09:17
PROVIDERS: ATTEND Internal Medicine Hematology & Oncology
DX: C84.60 Anaplastic large cell lymphoma, ALK-positive, unspecified site (principal); D64.9 Anemia, unspecified; N60.41 Mammary duct ectasia of right breast; G56.90 Unspecified mononeuropathy of unspecified upper limb; F17.210 Nicotine dependence, cigarettes, uncomplicated; M54.2 Cervicalgia; Z80.3 Family history of malignant neoplasm of breast; Z79.899 Other long term (current) drug therapy; Z92.3 Personal history of irradiation
CPT/HCPCS: 36415; 80053; 84443; 85025; 99213

== ENCOUNTER → 2018-06-07 | Outpatient (CLI) | payer OTHER ==
--- NOTE | 2018-06-07 16:53 | Diagnostic Imaging Report ---
INDICATION: Hyperplasia. COMPARISON: Correlation is made with prior mammogram from 06/06/2017 as well as 05/30/2016. EXAMINATION: 2D and 3D bilateral diagnostic mammography was performed with CAD. The current study was also evaluated with a Computer Aided Detection (CAD) system. FINDINGS: Both breasts remain heterogeneously dense, limiting the sensitivity of mammography. No dominant mass or malignant appearing microcalcifications are seen. Biopsy clip central left breast is again noted. Axillae are unremarkable. IMPRESSION: No mammographic features suspicious for malignancy are identified. ACR BI-RADS Category 2: Benign findings. Result letter will be mailed to the patient. Note: At least 10% of breast cancer is not imaged by mammography. Dictated on workstation # [id number]
== END ==
LOC: RAD 12:48
PROVIDERS: ATTEND Internal Medicine Hematology & Oncology
DX: N60.41 Mammary duct ectasia of right breast (principal)
CPT/HCPCS: 77066

== ENCOUNTER 2018-06-12 15:00 | Outpatient (RCR) | payer OTHER ==
[2018-06-12 15:25] LABS: BASOPHILS # (AUTO) 0.1 10^3/uL (0.0-0.1); BASOPHILS % (AUTO) 1 % (0-10); EOSINOPHILS # (AUTO) 0.6 10^3/uL (0.0-0.3); EOSINOPHILS % (AUTO) 6 % (0-10); HEMATOCRIT 38 % (35-52); HEMOGLOBIN 12.8 G/DL (11.5-16.0); LYMPHOCYTES # (AUTO) 2.2 X 10^3 (1.0-4.0); LYMPHOCYTES % (AUTO) 23 % (12-44); MEAN CORPUSCULAR HEMOGLOBIN 28 PG (25-34); MEAN CORPUSCULAR HGB CONC 34 G/DL (32-36); MEAN CORPUSCULAR VOLUME 83 FL (80-99); MEAN PLATELET VOLUME 9.1 FL (7.4-10.4); MONOCYTES % (AUTO) 11 % (0-12); NEUTROPHILS # (AUTO) 5.6 X 10^3 (1.8-7.8); NEUTROPHILS % (AUTO) 60 % (42-75); PLATELET COUNT 369 10^3/uL (130-400); RED CELL DISTRIBUTION WIDTH 14.1 % (10.0-14.5); WHITE BLOOD COUNT 9.4 10^3/uL (4.3-11.0)
[2018-06-12 15:49] LABS: ALANINE AMINOTRANSFERASE 33 U/L (0-55); ALBUMIN 4.6 GM/DL (3.2-4.5); ALKALINE PHOSPHATASE 67 U/L (40-136); BILIRUBIN,TOTAL 0.3 MG/DL (0.1-1.0); BUN/CREATININE RATIO 16; CALCIUM 9.5 MG/DL (8.5-10.1); CARBON DIOXIDE 26 MMOL/L (21-32); CHLORIDE 106 MMOL/L (98-107); CREATININE SERUM 0.85 MG/DL (0.60-1.30); GFR ESTIMATED > 60; GLUCOSE 103 MG/DL (70-105); POTASSIUM 3.6 MMOL/L (3.6-5.0); SODIUM 138 MMOL/L (135-145); TOTAL PROTEIN 7.9 GM/DL (6.4-8.2)
[2018-09-06] MEDS ORDERED: BUPR-42 PO (11:39)
[2018-09-06] MEDS ORDERED: ALPR1TAB2 PO (11:39)
== END 2018-09-10 | disposition home or self-care (01) ==
LOC: ONC 15:00
PROVIDERS: ATTEND Internal Medicine Hematology & Oncology
DX: C84.60 Anaplastic large cell lymphoma, ALK-positive, unspecified site (principal); D64.9 Anemia, unspecified; N60.41 Mammary duct ectasia of right breast; G56.90 Unspecified mononeuropathy of unspecified upper limb; F17.210 Nicotine dependence, cigarettes, uncomplicated; M54.2 Cervicalgia; Z80.3 Family history of malignant neoplasm of breast; Z79.899 Other long term (current) drug therapy; Z92.3 Personal history of irradiation
CPT/HCPCS: 36415; 80053; 85025; 99213

== ENCOUNTER 2018-09-06 06:46 | Outpatient (CLI) | payer OTHER ==
[~2018-09-06] VITALS: Ht 162.6 cm; Wt 63.5 kg
[~2018-09-06 06:46] MED LIST changes: -ALPR1TAB2 PO; -BUPR-42 PO
[2018-09-06] MEDS ORDERED: BUPR-42 PO (11:39)
[2018-09-06] MEDS ORDERED: ALPR1TAB2 PO (11:39)
== END 2018-09-06 11:51 | disposition home or self-care (01) ==
LOC: PREOP 06:46
PROVIDERS: ATTEND Obstetrics & Gynecology
DX: Z01.818 Encounter for other preprocedural examination (principal)

== ENCOUNTER → 2018-09-06 | Outpatient (CLI) | payer OTHER ==
[~2018-09-06] MED LIST changes: +ALPR1TAB2 PO; +BUPR-42 PO
--- NOTE | 2018-09-06 16:02 | Diagnostic Imaging Report ---
PROCEDURE: US Non-ob pelvis comp/trans. TECHNIQUE: Multiple realtime grayscale images were obtained of the pelvis in various projections endovaginally. Transabdominal imaging was also performed. INDICATION: Menometrorrhagia Uterus measures 7.9 x 5.1 x 4.0 cm. Endometrium measures up to 16 mm in thickness. It has homogeneous echogenicity. There are no abnormal vascularity. The ovaries are normal in size. There are 2 small simple cyst on left ovary. Impression: Myometrium appears normal. The endometrium is mildly thickened but this could be related to menstrual phase. Dictated by: Dictated on workstation # [id number]
== END ==
LOC: RAD 13:03
PROVIDERS: ATTEND Obstetrics & Gynecology
DX: N92.1 Excessive and frequent menstruation with irregular cycle (principal)
CPT/HCPCS: 76830; 76856

== ENCOUNTER 2018-09-13 06:19 | Day surgery (SDC) | payer OTHER ==
[2018-09-13] VITALS (13 sets, daily range): BP systolic 96–138; BP diastolic 64–89
[~2018-09-13] VITALS: Ht 162.6 cm; Wt 63.5 kg
[~2018-09-13 06:19] MED LIST changes: +ALPR1TAB2 PO; +BUPR-42 PO
[2018-09-13] MEDS ORDERED: LACTATED RINGERS 1,000 ML IV PRN (06:35)
[2018-09-13] MEDS ORDERED: FAMOTIDINE 20MG/2ML IV (PEPCID) IV ONE (06:45)
[2018-09-13] MEDS ORDERED: SCOPOLAMINE 1.5 MG (TRANSDERM-SCOP) PATCH TOP ONE (06:45)
[2018-09-13] MEDS ORDERED: ONDANSETRON 4 MG/2 ML (SDV) Z0FRAN IV ONE (06:45)
[2018-09-13] MEDS ORDERED: metroNIDAZOLE 500MG/100ML IVPB 100 ML IV ONE (06:45)
[2018-09-13] MEDS ORDERED: ceFAZolin INJECTION 1,000 MG in WATER (STERILE) FOR INJECTION 10 ML IV ONE (06:45)
[2018-09-13] MEDS ORDERED: ONDANSETRON 4 MG/2 ML (SDV) Z0FRAN ONE ×2 (06:50→07:03)
[2018-09-13] MEDS ORDERED: fentaNYL INJECTION 100 MCG/2 ML AMP ONE (06:50)
[2018-09-13] MEDS ORDERED: DEXAMETHASONE 10 MG/ML (DECADRON) 1 ML VIAL ONE (06:50)
[2018-09-13] MEDS ORDERED: MIDAZOLAM 2 MG/2 ML (VERSED) VIAL ONE (06:50)
[2018-09-13] MEDS ORDERED: SCOPOLAMINE 1.5 MG (TRANSDERM-SCOP) PATCH ONE (07:02)
[2018-09-13] MEDS ORDERED: SEVOFLURANE (ULTANE) 15 ML INHAL SOLN ONE (08:01)
--- NOTE | 2018-09-13 08:07 | Operative Report ---
Operative Report Date of Procedure/Surgery Sep 13, 2018 Surgeon (s) JESSY PANDA DO Crib Tender (s): NA Post-Operative Diagnosis menorrhagia, endomerial polyp Procedure Performed Hyteroscopy, dilation and curettage, Description of Procedure Estimated blood loss (mL): minimal Specimen(s) collected/removed endometrial curettings Findings of the Procedure endometrial polyp, proliferative endometrium, deficit 30 ml cervix 3.75 cm, cavity 4.5 cm Allergies and Home Medications Allergies Coded Allergies: morphine (Verified Allergy, Mild, N/V, 09/13/18) Home Medications Alprazolam 1 Mg Tablet, 1 MG PO DAILY PRN for ANXIETY, (Reported) Bupropion HCl 150 Mg Tab.er.24h, 150 MG PO DAILY, (Reported) Patient Home Medication List Home Medication List Reviewed: Yes JESSY PANDA DO Sep 13, 2018 08:07
[2018-09-13] MEDS ORDERED: KETOROLAC 30 MG/ML VIAL IVP ONE (08:15)
[2018-09-13] MEDS ORDERED: IBUP-1773 PO (08:16)
[2018-09-13] MEDS ORDERED: HYDR-4226 PO (08:16)
[2018-09-13] MEDS ORDERED: KETOROLAC 30 MG/ML VIAL ONE (08:16)
[2018-09-13] MEDS ORDERED: LIDOCAINE PF 2% 5 ML (XYLOCAINE) VIAL ONE (08:16)
--- NOTE | 2018-09-13 08:20 | Discharge Inst-Women's Service ---
Discharge Inst-Women's Serv Depart Medication/Instructions New, Converted or Re-Newed RX: RX on Chart Instructions expect vaginal spotting, light bleeding for up to 6 weeks, but most in the first 7-10 days May have increase in discharge at about 10-14 days. May be blood tinged Final Diagnosis menorrhagia endometrial polyp Consults/Follow Up Additional Follow Up: Yes (1-2 weeks for post op visit) Activity Activity: Activity as Tolerated Driving Instructions: No Driving for 24 Hours NO SMOKING: NO SMOKING Nothing Inside Vagina: No Douching, No Concepcion (2 weeks), No Tampons Diet Discharge Diet: No Restrictions Symptoms to Report to : Bleeding Excessive, Pain Increased, Fever Over 101 Degrees F, Vaginal Bleeding Increase, Vaginal Discharge Foul For Any Problems or Questions: Contact Your Physician JESSY PANDA DO Sep 13, 2018 08:20
[2018-09-13] MEDS ORDERED: HYDROmorphone 2 MG/ML VIAL (DILAUDID) IV ONE (08:30)
[2018-09-13] MEDS ORDERED: ONDANSETRON 4 MG/2 ML (SDV) Z0FRAN IVP PRN (08:30)
--- NOTE | 2018-09-13 09:28 | NUR ---
RT AT BEDSIDE OF I.S. TEACHING
--- NOTE | 2018-09-13 10:32 | Anesthesia-General Post-Op ---
General Patient Condition Mental Status/LOC: Same as Preop Cardiovascular: Satisfactory Nausea/Vomiting: Absent Respiratory: Satisfactory Pain: Controlled Complications: Absent Post Op Complications Complications None Follow Up Care/Instructions Patient Instructions None needed. Anesthesia/Patient Condition Patient Condition Patient is doing well, no complaints, stable vital signs, no apparent adverse anesthesia problems. No complications reported per nursing. ROCKY CISNEROS CRNA Sep 13, 2018 10:32
--- NOTE | 2018-09-13 11:08 | NUR ---
PT HAS BEEN DROWSY AND SLEEPING OFF AND ON SINCE RETURNING FROM PACU, AND HAD REQUESTED TO SLEEP LONGER. PT IS NOW AWAKE, ALERT, AND ORIENTED X4. PT AMBULATED TO BATHROOM WITH STEADY GAIT, VOIDED X1 WITHOUT COMPLICATION, TOLERATING PO FLUIDS AND FOOD WITHOUT COMPLICATION, DENIES ANY PAIN OR NAUSEA. PT'S RIDE HAS LEFT, STATES HE WILL RETURN SHORTLY.
== END 2018-09-13 12:15 | disposition home or self-care (01) ==
LOC: SDC 06:19 → EEVIPCON 06:19 → SDC 12:15
PROVIDERS: ATTEND Obstetrics & Gynecology
DX: N84.0 Polyp of corpus uteri (principal); C84.60 Anaplastic large cell lymphoma, ALK-positive, unspecified site; D64.9 Anemia, unspecified; N60.41 Mammary duct ectasia of right breast; G56.93 Unspecified mononeuropathy of bilateral upper limbs; G43.909 Migraine, unspecified, not intractable, without status migrainosus; F32.9 Major depressive disorder, single episode, unspecified; F41.9 Anxiety disorder, unspecified; M54.9 Dorsalgia, unspecified; Z87.891 Personal history of nicotine dependence; Z79.899 Other long term (current) drug therapy; Z88.5 Allergy status to narcotic agent; Z11.2 Encounter for screening for other bacterial diseases
CPT/HCPCS: 36430; 84703; 87081; 94664

== ENCOUNTER → 2018-12-13 | Outpatient (CLI) | payer OTHER ==
[~2018-12-13] MED LIST changes: +HYDR-4226 PO; +IBUP-1773 PO
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
== END ==
LOC: RAD 07:46
PROVIDERS: ATTEND Physician Assistant
DX: M47.816 Spondylosis without myelopathy or radiculopathy, lumbar region (principal); M48.02 Spinal stenosis, cervical region; M50.223 Other cervical disc displacement at C6-C7 level
CPT/HCPCS: 72141; 72148

== ENCOUNTER → 2019-07-14 | Outpatient (CLI) | payer OTHER ==
--- NOTE | 2019-07-14 12:45 | Diagnostic Imaging Report ---
INDICATION: Routine screening. Comparison is made with prior mammogram from 06/07/2018 and 06/06/2017. 2-D and 3-D bilateral screening mammography was performed with CAD. Both breasts are heterogeneously dense, limiting the sensitivity of mammography. Parenchymal pattern is stable. Biopsy marker clip central left breast again noted. No dominant mass or malignant appearing microcalcifications are seen. Axillae are unremarkable. IMPRESSION: BI-RADS Category 2 No mammographic features suspicious for malignancy are identified. ACR BI-RADS Category 2: Benign findings. Result letter will be mailed to the patient. Note: At least 10% of breast cancer is not imaged by mammography. Dictated by: Dictated on workstation # [id number]
== END ==
LOC: RAD 10:30
PROVIDERS: ATTEND Internal Medicine Hematology & Oncology
DX: Z12.31 Encounter for screening mammogram for malignant neoplasm of breast (principal)
CPT/HCPCS: 77063; 77067

== ENCOUNTER → 2019-07-24 | Outpatient (CLI) | payer OTHER ==
[2019-07-24 15:10] LABS: BASOPHILS # (AUTO) 0.1 10^3/uL (0.0-0.1); BASOPHILS % (AUTO) 1 % (0-10); EOSINOPHILS # (AUTO) 0.5 10^3/uL (0.0-0.3); EOSINOPHILS % (AUTO) 5 % (0-10); HEMATOCRIT 41 % (35-52); LYMPHOCYTES # (AUTO) 2.9 X 10^3 (1.0-4.0); LYMPHOCYTES % (AUTO) 28 % (12-44); MEAN CORPUSCULAR HEMOGLOBIN 31 PG (25-34); MEAN CORPUSCULAR HGB CONC 34 G/DL (32-36); MEAN CORPUSCULAR VOLUME 90 FL (80-99); MONOCYTES # (AUTO) 1.2 X 10^3 (0.0-1.0); MONOCYTES % (AUTO) 12 % (0-12); NEUTROPHILS # (AUTO) 5.7 X 10^3 (1.8-7.8); NEUTROPHILS % (AUTO) 55 % (42-75); PLATELET COUNT 335 10^3/uL (130-400); RED CELL DISTRIBUTION WIDTH 12.6 % (10.0-14.5); WHITE BLOOD COUNT 10.4 10^3/uL (4.3-11.0)
[2019-07-24 15:40] LABS: ALANINE AMINOTRANSFERASE 24 U/L (0-55); ALBUMIN 4.4 GM/DL (3.2-4.5); ALKALINE PHOSPHATASE 73 U/L (40-136); BILIRUBIN,TOTAL 0.3 MG/DL (0.1-1.0); BUN/CREATININE RATIO 16; CALCIUM 8.7 MG/DL (8.5-10.1); CARBON DIOXIDE 23 MMOL/L (21-32); CHLORIDE 108 MMOL/L (98-107); CREATININE SERUM 0.83 MG/DL (0.60-1.30); GFR ESTIMATED > 60; GLUCOSE 85 MG/DL (70-105); POTASSIUM 3.8 MMOL/L (3.6-5.0); SODIUM 141 MMOL/L (135-145); TOTAL PROTEIN 7.7 GM/DL (6.4-8.2)
== END ==
LOC: EDSTATUS 09-11 14:44 → ONC 07-23 14:45
PROVIDERS: ATTEND Internal Medicine Hematology & Oncology
DX: Z12.31 Encounter for screening mammogram for malignant neoplasm of breast (principal); C84.7 Anaplastic large cell lymphoma, ALK-negative; N60.41 Mammary duct ectasia of right breast; G62.9 Polyneuropathy, unspecified; D50.0 Iron deficiency anemia secondary to blood loss (chronic); D63.0 Anemia in neoplastic disease; M54.2 Cervicalgia; Z98.1 Arthrodesis status; Z90.11 Acquired absence of right breast and nipple; Z86.59 Personal history of other mental and behavioral disorders; Z98.82 Breast implant status; Z98.890 Other specified postprocedural states
CPT/HCPCS: 80053; 85025; 99213

== ENCOUNTER → 2019-12-09 | Outpatient (CLI) | payer OTHER ==
--- NOTE | 2019-12-09 16:22 | Diagnostic Imaging Report ---
PROCEDURE: US Non-ob pelvis comp/trans. TECHNIQUE: Multiple real-time grayscale images were obtained of the pelvis in various projections endovaginally. Transabdominal imaging was also performed. INDICATION: Dysfunctional uterine bleeding. FINDINGS: Uterus is anteverted measuring 9.1 x 4.8 x 5.2 cm. There is a small amount of fluid within the endometrial canal. Endometrium is thin measuring approximately 3 mm. No myometrial mass is detected. Left ovary is not visualized. Right ovary measures 3.2 x 1.9 x 2.3 cm. Right ovary does contain a 1.9 x 1.6 x 2.0 cm cyst. There is a second smaller exophytic cyst approximately 1 cm in size. No free fluid is seen. IMPRESSION: 1. Endometrial fluid. The endometrium is thin. 2. A 2 cm right ovarian cyst. Dictated by: Dictated on workstation # [id number]
== END ==
LOC: RAD 15:15
PROVIDERS: ATTEND Obstetrics & Gynecology
DX: N93.9 Abnormal uterine and vaginal bleeding, unspecified (principal); Z98.890 Other specified postprocedural states; N83.201 Unspecified ovarian cyst, right side; N85.8 Other specified noninflammatory disorders of uterus
CPT/HCPCS: 76830; 76856

== ENCOUNTER → 2020-01-12 | Outpatient (CLI) | payer OTHER ==
--- NOTE | 2020-01-12 16:58 | Diagnostic Imaging Report ---
PROCEDURE: MR imaging cervical spine without contrast. TECHNIQUE: Multiplanar, multisequence MR imaging of the cervical spine was performed without contrast. INDICATION: Increasing neck pain. COMPARISON: 12/13/2018. FINDINGS: There has been discectomy and anterior cervical spinal fusion which extends from C4 through C7. Metal artifact from hardware does limit evaluation. Cervical spinal curvature and alignment are unremarkable. There is mild bulging of the C3-C4 disc which flattens the ventral thecal sac without significant spinal stenosis. There may be mild neural foraminal stenosis, greater on the right. There is moderate spinal stenosis also present at C5-C6 where AP dimension of the spinal canal is narrowed to approximately 0.8 cm. At the C6-C7 level, endplate spurring results in moderate spinal stenosis with AP dimension of 0.7 cm. No abnormal signal seen within the cervical spinal cord. IMPRESSION: Extensive cervical spinal surgery with discectomy and anterior cervical fusion from C4 through C7. There is mild bulging of the adjacent C3-C4 disc without significant stenosis, although there is mild neural foraminal stenosis at this level which is greater on the right. Endplate spurring results in moderate spinal stenosis at the C5-C6 and C6-C7 levels. Dictated by: Dictated on workstation # [id number]
== END ==
LOC: RAD 16:15
PROVIDERS: ATTEND Physician Assistant
DX: M50.220 Other cervical disc displacement, mid-cervical region, unspecified level (principal); M48.02 Spinal stenosis, cervical region; Z98.1 Arthrodesis status
CPT/HCPCS: 72141

== ENCOUNTER 2020-01-23 05:45 | Outpatient (RCR) | payer OTHER ==
[~2020-01-23] VITALS: Ht 162 cm; Wt 72.2 kg
[~2020-01-23 05:45] MED LIST changes: +BACL10TA PO; +PARO10TA81 PO
== END 2020-01-23 09:37 | disposition home or self-care (01) ==
LOC: PREOP 05:45
PROVIDERS: ATTEND Obstetrics & Gynecology
DX: Z01.818 Encounter for other preprocedural examination (principal); N84.0 Polyp of corpus uteri; Z20.828 Contact with and (suspected) exposure to other viral communicable diseases
CPT/HCPCS: 87635

== ENCOUNTER 2020-01-27 06:05 | Day surgery (SDC) | payer OTHER ==
[2020-01-27] VITALS (10 sets, daily range): BP systolic 115–133; BP diastolic 70–80
[~2020-01-27] VITALS: Ht 162 cm; Wt 72.2 kg
[2020-01-27] MEDS ORDERED: ceFAZolin INJECTION 1,000 MG in WATER (STERILE) FOR INJECTION 10 ML IV ONE (06:30)
[2020-01-27] MEDS ORDERED: metroNIDAZOLE 500MG/100ML IVPB 100 ML IV ONE (06:30)
[2020-01-27] MEDS ORDERED: ROCURONIUM 10 MG/ML 5 ML SYRINGE IV ONE (06:38)
[2020-01-27] MEDS ORDERED: GLYCOPYRROLATE 0.2 MG/ML (ROBINUL) 2 ML VIAL ONE ×2 (06:38→11:49)
[2020-01-27] MEDS ORDERED: MIDAZOLAM 2 MG/2 ML (VERSED) VIAL ONE (06:38)
[2020-01-27] MEDS ORDERED: ONDANSETRON 4 MG/2 ML (SDV) Z0FRAN ONE ×2 (06:38→12:37)
[2020-01-27] MEDS ORDERED: ISOFLURANE (FORANE) 15 ML/15 MIN INHALATION ONE (06:38)
[2020-01-27] MEDS ORDERED: fentaNYL INJECTION 100 MCG/2 ML AMP ONE (06:38)
[2020-01-27] MEDS ORDERED: proPOfol 200 MG/20 ML (DIPRIVAN) VIAL IV ONE (06:38)
[2020-01-27] MEDS ORDERED: LIDOCAINE PF 2% 5 ML (XYLOCAINE) VIAL ONE (06:38)
[2020-01-27] MEDS ORDERED: NEOSTIGMINE 3 MG/3 ML VIAL ONE (06:38)
[2020-01-27] MEDS ORDERED: FAMOTIDINE 20MG/2ML IV (PEPCID) IV ONE (06:45)
[2020-01-27] MEDS ORDERED: CATHETER FLUSH 10 ML SYR IV PRN (06:45)
[2020-01-27] MEDS ORDERED: SCOPOLAMINE 1.5 MG (TRANSDERM-SCOP) PATCH TOP ONE (06:45)
[2020-01-27] MEDS: LACTATED RINGERS 1,000 ML IV PRN ×3 (06:50→12:37)
[2020-01-27 06:56] LABS: BASOPHILS # (AUTO) 0.1 10^3/uL (0.0-0.1); BASOPHILS % (AUTO) 1 % (0-10); EOSINOPHILS # (AUTO) 0.4 10^3/uL (0.0-0.3); EOSINOPHILS % (AUTO) 5 % (0-10); HEMATOCRIT 42 % (35-52); HEMOGLOBIN 14.5 g/dL (11.5-16.0); LYMPHOCYTES # (AUTO) 1.7 10^3/uL (1.0-4.0); LYMPHOCYTES % (AUTO) 21 % (12-44); MEAN CORPUSCULAR HEMOGLOBIN 31 pg (25-34); MEAN CORPUSCULAR HGB CONC 34 g/dL (32-36); MEAN CORPUSCULAR VOLUME 89 fL (80-99); MEAN PLATELET VOLUME 8.9 fL (9.0-12.2); MONOCYTES # (AUTO) 0.7 10^3/uL (0.0-1.0); MONOCYTES % (AUTO) 9 % (0-12); NEUTROPHILS # (AUTO) 5.1 10^3/uL (1.8-7.8); NEUTROPHILS % (AUTO) 64 % (42-75); PLATELET COUNT 348 10^3/uL (130-400)
[2020-01-27] MEDS ORDERED: FAMOTIDINE 20MG/2ML IV (PEPCID) ONE (07:06)
--- NOTE | 2020-01-27 09:03 | History & Physical-Surgical ---
HPO-Surgical History of Present Illness Chief Complaint: abnormal uterine bleeding Diagnosis/Surgical Indication: ENDOMETRIAL POLYPS, failed uterine ablation Procedure: RATReal, BSO OIP Date of Surgery: Jan 27, 2020 Weight (Pounds): 140 Weight (Ounces): 0.0 Height (Feet): 5 Height (Inches): 4.00 Allergies and Home Medications Allergies Coded Allergies: meperidine (Verified Allergy, Severe, SEVERE N/V, 01/27/20) morphine (Verified Allergy, Severe, SEVERE N/V, 01/27/20) Home Medications Alprazolam 1 Mg Tablet, 1 MG PO DAILY PRN for ANXIETY, (Reported) Baclofen 10 Mg Tablet, 10 MG PO PRN PRN for SPASMS, (Reported) Bupropion HCl 150 Mg Tab.er.24h, 150 MG PO DAILY, (Reported) Ibuprofen 600 Mg Tablet, 600 MG PO Q6H Prescribed by: JESSY PANDA on 09/13/18 0816 Paroxetine HCl 10 Mg Tablet, 10 MG PO DAILY, (Reported) Patient Home Medication List Home Medication List Reviewed: Yes Past Wmfcfui-Qejjbh-Xonsxy Hx Patient Social History Alcohol Use: Denies Use Recreational Drug Use: No Smoking Status: Former Smoker Former Smoker, Quit: Jan 22, 2016 Type Used: Cigarettes 2nd Hand Smoke Exposure: Yes Recent Foreign Travel: No Contact w/other who traveled: No Recent Hopitalizations: No Immunizations Up To Date Date of Influenza Vaccine: Dec 10, 2018 Seasonal Allergies Seasonal Allergies: Yes (MILD) Surgeries Yes (BREAST IMLANTS/REMOVED, PARTIAL MASTECTOMY, SPINAL STIMULATOR, NECK FUSION) Breast, Tubal Ligation Respiratory No Cardiovascular No Neurological Yes Headaches /Migraines Reproductive System Hx Reproductive Disorders: No Sexually Transmitted Disease: No HIV/AIDS: No Female Reproductive Disorders: 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 Genitourinary No Gastrointestinal No Musculoskeletal Yes Back Injury, Chronic Back Pain, Fractures Endocrine History of Endocrine Disorders: No (THYROID NODULE) HEENT History of HEENT Disorders: Yes (READING GLASSES) Loss of Vision: Denies Hearing Impairment: Denies Cancer Yes Breast, Lymphoma Did You Recieve Any Treatments: Yes Type of Treatment: Radiation, Surgical Intervention Psychosocial History of Psychiatric Problem: Yes Behavioral Health Disorders: Anxiety, Depression Integumentary History of Skin or Integumenta: No Blood Transfusions History of Blood Disorders: Yes (HX ANEMIA) Adverse Reaction to a Blood Tr: No (N/A) Family Medical History Family Hx: FH: breast cancer 19 MOTHER Malignant neoplasm of vagina 19 MOTHER Exam Vital Signs Vital Signs 01/27/20 08:02 Temp 36.5 Pulse 94 Resp 18 B/P (MAP) 123/75 (91) Pulse Ox 98 O2 Delivery Room Air Capillary Refill : Labs Laboratory Tests Test 01/27/20 06:45 Range/Units White Blood Count 8.0 4.3-11.0 10^3/uL Red Blood Count 4.75 3.80-5.11 10^6/uL Hemoglobin 14.5 11.5-16.0 g/dL Hematocrit 42 35-52 % Mean Corpuscular Volume 89 80-99 fL Mean Corpuscular Hemoglobin 31 25-34 pg Mean Corpuscular Hemoglobin Concent 34 32-36 g/dL Red Cell Distribution Width 12.1 10.0-14.5 % Platelet Count 348 130-400 10^3/uL Mean Platelet Volume 8.9 L 9.0-12.2 fL Immature Granulocyte % (Auto) 0 % Neutrophils (%) (Auto) 64 42-75 % Lymphocytes (%) (Auto) 21 12-44 % Monocytes (%) (Auto) 9 0-12 % Eosinophils (%) (Auto) 5 0-10 % Basophils (%) (Auto) 1 0-10 % Neutrophils # (Auto) 5.1 1.8-7.8 10^3/uL Lymphocytes # (Auto) 1.7 1.0-4.0 10^3/uL Monocytes # (Auto) 0.7 0.0-1.0 10^3/uL Eosinophils # (Auto) 0.4 H 0.0-0.3 10^3/uL Basophils # (Auto) 0.1 0.0-0.1 10^3/uL Immature Granulocyte # (Auto) 0.0 0.0-0.1 10^3/uL General Appearance: Alert, Oriented X3, Cooperative Respiratory: Clear to Auscultation, Normal Air Movement Cardiovascular: Regular Rate, Normal S1, Normal S2 Assessment/Plan Admission Diagnosis 1. abnormal uterine bleeding 2. endometrial polyp Rath, bilateral salpingectomy (partial), OIP Risks include bleeding, infection, injury to bowel, bladder ureter. Prophylactic antibiotics and sCDs are done. JESSY PANDA DO Jan 27, 2020 09:03
[2020-01-27] MEDS ORDERED: BUPIVACAINE 0.25% 30 ML (SENSORCAINE) VIAL ONE (10:04)
[2020-01-27] MEDS ORDERED: SEVOFLURANE (ULTANE) 15 ML INHAL SOLN ONE (11:36)
[2020-01-27] MEDS ORDERED: HYDROmorphone 2 MG/ML VIAL (DILAUDID) ONE (11:39)
[2020-01-27] MEDS ORDERED: PHENYLEPHRINE 100 MCG/ML 10 ML (ANESTHESIA) SYR ONE (11:49)
[2020-01-27] MEDS ORDERED: KETOROLAC 30 MG/ML VIAL ONE (12:05)
--- NOTE | 2020-01-27 12:09 | Operative Report ---
Operative Report Date of Procedure/Surgery Jan 27, 2020 Surgeon (s) JESSY PANDA DO Offset Assistant Press Operator (s): na Post-Operative Diagnosis SAME BILATERAL HYDROSALPINX Procedure Performed RATH, BILATERAL SALPINGECTOMY Description of Procedure Anesthesia Type: General Estimated blood loss (mL): 150 Specimen(s) collected/removed UTERUS AND ALEJANDRO TUBES Description of the Procedure After informed consent was obtained, patient was taken into the operating room where general anesthetic was found to be adequate. She was prepped and draped in the usual sterile fashion in the dorsal lithotomy position. A Ahumada catheter was placed. A speculum was placed in the vagina. The cervix was visualized and the anterior lip was grasped with a sharp toothed tenaculum. The cervix was stenotic so a small dilator was used to dilate the cervix gently. The uterus was sounded and depth was approximately 6.5 centimeters. I placed the Annalisa device (6.5 cm) and a 4.0 cm collar was advanced over the cervix. I inserted the Annalisa without difficulty, inflating the balloon and securing it around the fornix of the cervix. The collar was then secured with sutures at 12 o'clock. Attention was then turned to the patient's abdomen. A supraumbilical incision was made about 8 mm. A Veress needle was inserted and I confirmed intraabdomin al placement with a drop in pressure and the saline drop test. The opening pressure was 7 mmHg. I then insufflated the abdomen to a maximum of 15 mmHg with warmed CO2 gas. I placed an additional 8 mm trocar in the left abdomen lateral to the umbilicus approximately 15 cm. The second robotic port was placed about 12 cm lateral to the right placement. This was an 8 mm trocar. These were placed under direct visualization of the laparoscope. 0.25% Marcaine was injected prior to placement of all trocars. When all placements were confirmed, the patient was placed in steep Trendelenburg allowing adequate visualization and the robot was brought in for docking. The docking was accomplished without difficulty. The above mentioned findings were seen. I then took over the command of the robot utilizing the vessel sealer and monopolar hema. I was able to visualize the round ligaments bilaterally and grasped them and cauterized with bipolar cautery and then cut with my hema. At this point, I then did bilateral salpingectomy. The patient had had previous tubal ligation, but filshie clips were used, so the tubes remained b ilaterally. There was fairly large hydrosalpinges noted bilaterally with large vasculature associated with each tube. I incised the mesosalpinx with the hema. Then, I grasped with cornu and transected bilaterally using the vessel sealer. I then moved my dissection to the posterior leaves of the broad ligament. I dissected the posterior leaves of the broad ligament off the u terine arteries skeletonizing them bilaterally. I then took a second clamp with the bipolar cautery and with the hema, transected the vessels away from the lateral aspect to the cervical stroma. The uterine vessels were also very large associated with the size of the small uterus. I dissected the anterior peritoneum off the lower uterine segment. I continually pushed the bladder back and I took excessively great care and I was eventually able to dissect the vesicouterine peritoneum off the lower uterine segment. I then dissected in a V fashion towards the midline between the uterosacral ligaments. This allowed me to skeletonize the uterine vessels bilaterally. The balloon on the ANNALISA was insufflated. This allowed me to see the ANNALISA circumferentially. I then performed a colpotomy anteriorly and then amputate with cervix away from the vaginal fornix. I then continued the colpotomy circumferentially. Once this was performed, the costumer assistant removed the uterus, tubes and ovaries through the vagina. She then left the uterus in the vagina to maintain the pneumoperitoneum. . I then began closure of the vaginal cuff. The uterus was left in the vagina to maintain pneumoperitoneum. I closed the apices of the vaginal cuff with 2-0 Vicryl V lock sutures with a colposuspension through the uterosacral ligaments. This suspended the apices of the vaginal cuff. I extended this to the midline from both sides and overlapped the V lock sutures in the midline. Excellent closure is noted and hemostasis is achieved. All the needles were removed from the patient's abdomen. Now, the robotic instruments were removed and the robot was docked back to laparoscopy. The pelvis was irrigated. There was no active bleeding noted. Bilateral ureters were seen the entire time during the surgery and were peristalsing. There was no excessive bleeding noted. The trocars were removed under direct visualization. The laparoscopic sites were visualized and found to be hemostatic. The trocar sites were injected with 0.25% Marcaine. The skin incisions were closed with 4-0 Monocryl in a subcuticular fashion and then with Dermabond. Op sites were placed over the incision sites. The instruments were removed from the vagina and I noted there were no abrasions. The patient was repositioned. Sponge, lap, needle and instrument counts correct times two. Patient was awakened and taken to recovery in a stable condition. Findings of the Procedure CERVICAL STENOSIS BILATERAL HYDROSALPINX BILATERAL TUBAL INTERRUPTION Allergies and Home Medications Allergies Coded Allergies: meperidine (Verified Adverse Reaction, Severe, SEVERE N/V, 01/27/20) morphine (Verified Adverse Reaction, Severe, SEVERE N/V, 01/27/20) Home Medications Acetaminophen 500 Mg Tablet, 1,000 MG PO Q8HR Prescribed by: JESSY PANDA on 01/28/20218 Alprazolam 1 Mg Tablet, 1 MG PO DAILY PRN for ANXIETY, (Reported) Baclofen 10 Mg Tablet, 10 MG PO PRN PRN for SPASMS, (Reported) Bupropion HCl 150 Mg Tab.er.24h, 150 MG PO DAILY, (Reported) Docusate Sodium 100 Mg Capsule, 100 MG PO BID Prescribed by: JESSY PANDA on 01/28/20218 Ibuprofen 600 Mg Tablet, 600 MG PO Q6H Prescribed by: JESSY PANDA on 01/28/20218 Oxycodone Hcl 5 Mg Tab, 5 MG PO Q4HR Prescribed by: JESSY PANDA on 01/28/20218 Paroxetine HCl 10 Mg Tablet, 10 MG PO DAILY, (Reported) Patient Home Medication List Home Medication List Reviewed: Yes JESSY PANDA DO Jan 27, 2020 12:09
[2020-01-27] MEDS ORDERED: ONDANSETRON 4 MG/2 ML (SDV) Z0FRAN IV PRN (12:15)
[2020-01-27] MEDS ORDERED: HYDROmorphone 2 MG/ML VIAL (DILAUDID) IVP PRN (12:15)
[2020-01-27] MEDS ORDERED: fentaNYL INJECTION 100 MCG/2 ML AMP IVP PRN (12:15)
[2020-01-27] MEDS ORDERED: CHLORASEPTIC LOZENGE MM PRN (12:15)
[2020-01-27] MEDS ORDERED: HYDROmorphone 2 MG/ML VIAL (DILAUDID) IV ONE (12:30)
[2020-01-27] MEDS: ONDANSETRON 4 MG/2 ML (SDV) Z0FRAN IVP PRN ×2 (12:40→13:36)
--- NOTE | 2020-01-27 13:20 | NUR ---
pt transferred to room 306 via bed with PACU staff @ side. pt resting with unlabored respirations noted. bedside report received from LAYLA Goldstein. care assumed of pt.
--- NOTE | 2020-01-27 13:27 | NUR ---
initial shift assessment completed, see interventions for further. lapsites x3 D/I. ice pack applied. miller to DD with clear, yellow urine noted in chamber. v-pad in place. SCD's to LE's. pt cont sleeping with unlabored respirations, no sx's of distress noted. will cont to monitor.
--- NOTE | 2020-01-27 13:43 | NUR ---
RT notified of IS order.
--- NOTE | 2020-01-27 14:36 | NUR ---
Sleeping with unlabored respirations- awakens easily. no c/o's voiced.
[2020-01-27] MEDS: ACETAMINOPHEN 500 MG TAB (TYLENOL) PO SCH ×2 (15:45→23:37)
--- NOTE | 2020-01-27 17:00 | NUR ---
was notified of pt's request for miller d/c. order received to d/c cath if adequate urine output. miller d/c'd. 400cc clear yellow urine noted in chamber. oneal-care offered. no vaginal bleeding noted.
[2020-01-27] MEDS: KETOROLAC 30 MG/ML VIAL IV SCH ×2 (18:23→23:37)
[2020-01-27] MEDS: LACTATED RINGERS 1,000 ML IV SCH (18:23)
--- NOTE | 2020-01-27 18:30 | NUR ---
assisted up to BR. voided 100cc clear, yellow urine. v-pad and panties applied.
--- NOTE | 2020-01-27 19:19 | NUR ---
report given to Ivory RN
[2020-01-27] MEDS: DOCUSATE SODIUM 100 MG (COLACE) CAP PO SCH (21:13)
[2020-01-28 00:16] VITALS: BP 120/70
[2020-01-28] MEDS: LACTATED RINGERS 1,000 ML IV SCH (02:19)
[2020-01-28] MEDS ORDERED: IBUP-1773 PO (02:19)
[2020-01-28] MEDS ORDERED: DCS100C PO (02:19)
[2020-01-28] MEDS ORDERED: OXC5T PO (02:19)
[2020-01-28] MEDS ORDERED: ACET-93 PO (02:19)
--- NOTE | 2020-01-28 02:22 | Discharge Inst-Women's Service ---
Discharge Inst-Women's Serv Depart Medication/Instructions New, Converted or Re-Newed RX: Other (on chart and transmitted) Final Diagnosis abnormal uterine bleeding endometrial polyp hydrosalpinges bilateral cervial stenosis anemia Problems Reviewed?: Yes Consults/Follow Up Additional Follow Up: Yes (1 week with Alla for incision check; 10-12 weeks with Alex for post op) Activity Activity: Activity as Tolerated (no lifting over 15 lbs, no swimming, baths, hot tubs, etc) Driving Instructions: No Driving for 1 Week Nothing Inside Vagina: No Douching, No Cunningham, No Tampons Other Activity NOTHING in the vagina until cleared by physician (10-12 weeks) Diet Discharge Diet: No Restrictions Symptoms to Report to : Swelling Increased, Bleeding Excessive, Pain Increased, Constipation(Persistant), Fever Over 101 Degrees F, Vaginal Bleeding Increase, Cramps in Feet or Legs (d), Vaginal Discharge Foul For Any Problems or Questions: Contact Your Physician Skin/Wound Care Infection Signs and Symptoms: Increased Redness, Foul Odor of Wound, Increased Drainage, Skin Itchy or Has a Rash, Increased Swelling, Temperature Above 101 F Operative Area Clean and Dry: You May Remove Bandage (after day 3 or if soiled or wet) Stitches/Perry/Dermabond: Dermabond Bathing Instructions: JESSY Dumont DO Jan 28, 2020 02:22
--- NOTE | 2020-01-28 07:59 | Anesthesia-General Post-Op ---
General Patient Condition Mental Status/LOC: Same as Preop Cardiovascular: Satisfactory Nausea/Vomiting: Absent Respiratory: Satisfactory Pain: Controlled Complications: Absent Post Op Complications Complications None Follow Up Care/Instructions Patient Instructions None needed. Anesthesia/Patient Condition Patient Condition Patient is doing well, no complaints, stable vital signs, no apparent adverse anesthesia problems. No complications reported per nursing. POONAM WAY CRNA Jan 28, 2020 07:59
[2020-01-28] MEDS: ACETAMINOPHEN 500 MG TAB (TYLENOL) PO SCH (08:41)
[2020-01-28] MEDS: DOCUSATE SODIUM 100 MG (COLACE) CAP PO SCH (08:41)
[2020-01-28] MEDS: KETOROLAC 30 MG/ML VIAL IV SCH (08:41)
[2020-01-28 08:45] VITALS: BP 119/75
--- NOTE | 2020-01-28 08:45 | NUR ---
initial shift assessment completed, see interventions for further. POC reviewed- states understanding.
--- NOTE | 2020-01-28 09:30 | NUR ---
dismissal instructions given,, states understanding. reviewed follow up appointments and dismissal Rx's. signature page signed, placed on chart.
--- NOTE | 2020-01-28 09:55 | NUR ---
dismissed to private vehicle via w/c with this RN @ side. pt stable with no sx's of distress noted.
[2020-01-28] MEDS ORDERED: IBUPROFEN 600 MG (MOTRIN) TAB PO SCH (12:15)
== END 2020-01-28 09:55 | disposition home or self-care (01) ==
LOC: SDC 06:05 → WS 13:20 → SDC 01-28 09:55
PROVIDERS: ATTEND Obstetrics & Gynecology
DX: N70.11 Chronic salpingitis (principal); N72 Inflammatory disease of cervix uteri; N83.8 Other noninflammatory disorders of ovary, fallopian tube and broad ligament; N83.6 Hematosalpinx; F41.9 Anxiety disorder, unspecified; G43.909 Migraine, unspecified, not intractable, without status migrainosus; F32.9 Major depressive disorder, single episode, unspecified; Z79.899 Other long term (current) drug therapy; Z85.44 Personal history of malignant neoplasm of other female genital organs; Z85.3 Personal history of malignant neoplasm of breast; Z87.891 Personal history of nicotine dependence
CPT/HCPCS: 36415; 84703; 85025; 86850; 86900; 86901; 87081; 88307; 94664

== ENCOUNTER → 2020-07-13 | Outpatient (CLI) | payer OTHER ==
[~2020-07-13] MED LIST changes: +ACET-93 PO; +DCS100C PO; +OXC5T PO
== END ==
LOC: LABNPT 07:19
PROVIDERS: ATTEND Emergency Medicine
DX: Z01.812 Encounter for preprocedural laboratory examination (principal); Z20.822 Contact with and (suspected) exposure to COVID-19
CPT/HCPCS: 87635

== ENCOUNTER → 2020-07-16 | Outpatient (CLI) | payer OTHER ==
--- NOTE | 2020-07-19 09:17 | Diagnostic Imaging Report ---
INDICATION: Routine screening. Comparison is made with prior mammogram 07/14/2019 and 06/07/2018. 2-D and 3-D bilateral screening mammography was performed with CAD. Both breasts are heterogeneously dense, limiting the sensitivity of mammography. Biopsy marker clip in the central left breast is again noted. No mass or malignant appearing microcalcifications are seen. Axillae are unremarkable. IMPRESSION: BI-RADS Category 2 No mammographic features suspicious for malignancy are identified. ACR BI-RADS Category 2: Benign findings. Result letter will be mailed to the patient. Note: At least 10% of breast cancer is not imaged by mammography. Dictated by: Dictated on workstation # [id number]
== END ==
LOC: RAD 15:29
PROVIDERS: ATTEND Internal Medicine Hematology & Oncology
DX: Z12.31 Encounter for screening mammogram for malignant neoplasm of breast (principal)
CPT/HCPCS: 77063; 77067

== ENCOUNTER → 2020-07-21 | Outpatient (CLI) | payer OTHER ==
[2020-07-21 15:23] LABS: BASOPHILS # (AUTO) 0.1 10^3/uL (0.0-0.1); BASOPHILS % (AUTO) 1 % (0-10); EOSINOPHILS # (AUTO) 0.7 10^3/uL (0.0-0.3); EOSINOPHILS % (AUTO) 7 % (0-10); HEMATOCRIT 41 % (35-52); HEMOGLOBIN 13.8 g/dL (11.5-16.0); LYMPHOCYTES # (AUTO) 2.7 10^3/uL (1.0-4.0); LYMPHOCYTES % (AUTO) 30 % (12-44); MEAN CORPUSCULAR HEMOGLOBIN 31 pg (25-34); MEAN CORPUSCULAR HGB CONC 34 g/dL (32-36); MEAN CORPUSCULAR VOLUME 92 fL (80-99); MONOCYTES # (AUTO) 0.9 10^3/uL (0.0-1.0); MONOCYTES % (AUTO) 10 % (0-12); NEUTROPHILS # (AUTO) 4.7 10^3/uL (1.8-7.8); NEUTROPHILS % (AUTO) 52 % (42-75); PLATELET COUNT 354 10^3/uL (130-400)
[2020-07-21 15:38] LABS: ALANINE AMINOTRANSFERASE 36 U/L (0-55); ALBUMIN 4.3 GM/DL (3.2-4.5); ALKALINE PHOSPHATASE 74 U/L (40-136); BILIRUBIN,TOTAL 0.2 MG/DL (0.1-1.0); BUN/CREATININE RATIO 17; CALCIUM 9.3 MG/DL (8.5-10.1); CARBON DIOXIDE 27 MMOL/L (21-32); CHLORIDE 103 MMOL/L (98-107); CREATININE SERUM 0.86 MG/DL (0.60-1.30); GFR ESTIMATED > 60; GLUCOSE 84 MG/DL (70-105); POTASSIUM 4.1 MMOL/L (3.6-5.0); SODIUM 138 MMOL/L (135-145); TOTAL PROTEIN 7.9 GM/DL (6.4-8.2)
== END ==
LOC: ONC 15:01
PROVIDERS: ATTEND Internal Medicine Hematology & Oncology
DX: Z12.31 Encounter for screening mammogram for malignant neoplasm of breast (principal); N62 Hypertrophy of breast; G62.9 Polyneuropathy, unspecified; F32.9 Major depressive disorder, single episode, unspecified; Z80.9 Family history of malignant neoplasm, unspecified; Z98.890 Other specified postprocedural states; Z92.3 Personal history of irradiation; Z90.710 Acquired absence of both cervix and uterus
CPT/HCPCS: 80053; 85025; G0463; 99213

== ENCOUNTER → 2020-07-21 | Outpatient (CLI) | payer OTHER ==
[2020-07-21 15:25] LABS: BASOPHILS # (AUTO) 0.1 10^3/uL (0.0-0.1); BASOPHILS % (AUTO) 1 % (0-10); EOSINOPHILS # (AUTO) 0.6 10^3/uL (0.0-0.3); EOSINOPHILS % (AUTO) 7 % (0-10); HEMATOCRIT 41 % (35-52); HEMOGLOBIN 13.7 g/dL (11.5-16.0); LYMPHOCYTES # (AUTO) 2.7 10^3/uL (1.0-4.0); LYMPHOCYTES % (AUTO) 30 % (12-44); MEAN CORPUSCULAR HEMOGLOBIN 31 pg (25-34); MEAN CORPUSCULAR HGB CONC 34 g/dL (32-36); MEAN CORPUSCULAR VOLUME 92 fL (80-99); MEAN PLATELET VOLUME 9.1 fL (9.0-12.2); MONOCYTES # (AUTO) 0.8 10^3/uL (0.0-1.0); MONOCYTES % (AUTO) 9 % (0-12); NEUTROPHILS # (AUTO) 4.6 10^3/uL (1.8-7.8); NEUTROPHILS % (AUTO) 52 % (42-75); PLATELET COUNT 352 10^3/uL (130-400); WHITE BLOOD COUNT 8.8 10^3/uL (4.3-11.0)
[2020-07-21 15:52] LABS: ALANINE AMINOTRANSFERASE 36 U/L (0-55); ALBUMIN 4.3 GM/DL (3.2-4.5); ALKALINE PHOSPHATASE 74 U/L (40-136); BILIRUBIN,TOTAL 0.2 MG/DL (0.1-1.0); BUN/CREATININE RATIO 17; CALCIUM 9.2 MG/DL (8.5-10.1); CARBON DIOXIDE 26 MMOL/L (21-32); CHLORIDE 104 MMOL/L (98-107); CREATININE SERUM 0.87 MG/DL (0.60-1.30); GFR ESTIMATED > 60; GLUCOSE 84 MG/DL (70-105); POTASSIUM 4.1 MMOL/L (3.6-5.0); SODIUM 138 MMOL/L (135-145); TOTAL PROTEIN 7.9 GM/DL (6.4-8.2)
[2020-07-21 16:13] LABS: FREE T4 (FREE THYROXINE) 0.94 NG/DL (0.70-1.48)
== END ==
LOC: LAB 15:04
PROVIDERS: ATTEND Internal Medicine
DX: Z00.00 Encounter for general adult medical examination without abnormal findings (principal); D64.9 Anemia, unspecified; E03.9 Hypothyroidism, unspecified; E53.8 Deficiency of other specified B group vitamins; R73.9 Hyperglycemia, unspecified
CPT/HCPCS: 36415; 80053; 82607; 82728; 82746; 83036; 83540; 83550; 84439; 84443; 85025

== ENCOUNTER → 2021-05-31 | Outpatient (CLI) | payer OTHER ==
[~2021-05-31] MED LIST changes: +CYCL10TA25 PO; -DCS100C PO; +DOCU-239 PO
[2021-05-31 07:53] LABS: BASOPHILS # (AUTO) 0.1 10^3/uL (0.0-0.1); BASOPHILS % (AUTO) 1 % (0-10); EOSINOPHILS # (AUTO) 0.4 10^3/uL (0.0-0.3); EOSINOPHILS % (AUTO) 5 % (0-10); HEMATOCRIT 41 % (35-52); HEMOGLOBIN 13.5 g/dL (11.5-16.0); LYMPHOCYTES % (AUTO) 28 % (12-44); MEAN CORPUSCULAR HEMOGLOBIN 30 pg (25-34); MEAN CORPUSCULAR HGB CONC 33 g/dL (32-36); MEAN CORPUSCULAR VOLUME 91 fL (80-99); MEAN PLATELET VOLUME 8.8 fL (9.0-12.2); MONOCYTES # (AUTO) 0.7 10^3/uL (0.0-1.0); MONOCYTES % (AUTO) 9 % (0-12); NEUTROPHILS # (AUTO) 4.1 10^3/uL (1.8-7.8); NEUTROPHILS % (AUTO) 57 % (42-75); PLATELET COUNT 316 10^3/uL (130-400); WHITE BLOOD COUNT 7.2 10^3/uL (4.3-11.0)
[2021-05-31 08:07] LABS: ALBUMIN 4.1 GM/DL (3.2-4.5); BILIRUBIN,TOTAL 0.4 MG/DL (0.1-1.0); CALCIUM 9.3 MG/DL (8.5-10.1); CREATININE SERUM 0.88 MG/DL (0.60-1.30); POTASSIUM 4.1 MMOL/L (3.6-5.0); TOTAL PROTEIN 7.2 GM/DL (6.4-8.2)
[2021-05-31 08:28] LABS: FREE T4 (FREE THYROXINE) 0.81 NG/DL (0.70-1.48)
== END ==
LOC: LAB 07:15
PROVIDERS: ATTEND Internal Medicine
DX: Z00.00 Encounter for general adult medical examination without abnormal findings (principal); R73.9 Hyperglycemia, unspecified; E03.9 Hypothyroidism, unspecified; E78.00 Pure hypercholesterolemia, unspecified; E78.1 Pure hyperglyceridemia; D64.9 Anemia, unspecified
CPT/HCPCS: 36415; 80053; 80061; 82728; 83036; 83540; 83550; 84439; 84443; 85025

== ENCOUNTER → 2021-06-24 | Outpatient (CLI) | payer OTHER ==
--- NOTE | 2021-06-24 08:59 | Diagnostic Imaging Report ---
PROCEDURE: US Gallbladder. TECHNIQUE: Multiple real-time grayscale images were obtained over the right upper quadrant in various projections. INDICATION: Right upper quadrant abdominal pain. EXAMINATION:: Ultrasound gallbladder 06/24/2021 FINDINGS: The liver is unremarkable with no focal lesions or intrahepatic dilatation. Common duct is obscured by overlying bowel gas. Gallbladder is within normal limits with no stones or sludge. There is no pericholecystic fluid. There is no gallbladder wall thickening. Visualized pancreas unremarkable. Visualized aorta and IVC unremarkable. Right kidney 11.2 cm in length. No acute abnormality appreciated. There is no ascites. IMPRESSION: 1. Unremarkable visualized structures with some limitations as above. Dictated by: Dictated on workstation # [id number]
== END ==
LOC: RAD 07:15
PROVIDERS: ATTEND Internal Medicine
DX: R10.11 Right upper quadrant pain (principal)
CPT/HCPCS: 76705

== ENCOUNTER 2021-07-20 11:59 | Outpatient (CLI) | payer OTHER ==
[~2021-07-20] VITALS: Ht 165.1 cm; Wt 74.8 kg
[~2021-07-20 11:59] MED LIST changes: -CETI1TAB53 PO; -FLUT16SP22 NS; -PROP10TA8 PO
[2021-07-20] MEDS ORDERED: FLUT16SP22 NS (13:15)
[2021-07-20] MEDS ORDERED: CETI1TAB53 PO (13:15)
[2021-07-20] MEDS ORDERED: PROP10TA8 PO (13:15)
== END 2021-07-20 13:23 | disposition home or self-care (01) ==
LOC: PREOP 11:59
PROVIDERS: ATTEND Surgery
DX: Z01.818 Encounter for other preprocedural examination (principal)

== ENCOUNTER → 2021-07-20 | Outpatient (CLI) | payer OTHER ==
[~2021-07-20] MED LIST changes: +CETI1TAB53 PO; +FLUT16SP22 NS; +PROP10TA8 PO
== END ==
LOC: RAD 15:37
PROVIDERS: ATTEND Internal Medicine Hematology & Oncology
DX: Z12.31 Encounter for screening mammogram for malignant neoplasm of breast (principal)
CPT/HCPCS: 77063; 77067

== ENCOUNTER → 2021-07-28 | Outpatient (CLI) | payer OTHER ==
[~2021-07-28] MED LIST changes: +CETI1TAB53 PO; +FLUT16SP22 NS; +PROP10TA8 PO
[2021-07-28 15:20] LABS: ALBUMIN 4.3 GM/DL (3.2-4.5); POTASSIUM 3.7 MMOL/L (3.6-5.0)
[2021-07-28 15:22] LABS: CALCIUM 9.1 MG/DL (8.5-10.1)
[2021-07-28 15:23] LABS: TOTAL PROTEIN 7.7 GM/DL (6.4-8.2)
[2021-07-28 15:25] LABS: BILIRUBIN,TOTAL 0.3 MG/DL (0.1-1.0)
[2021-07-28 15:26] LABS: CREATININE SERUM 0.81 MG/DL (0.60-1.30)
[2021-07-28 15:30] LABS: BASOPHILS # (AUTO) 0.1 10^3/uL (0.0-0.1); BASOPHILS % (AUTO) 1 % (0-10); EOSINOPHILS # (AUTO) 0.6 10^3/uL (0.0-0.3); EOSINOPHILS % (AUTO) 7 % (0-10); HEMATOCRIT 41 % (35-52); LYMPHOCYTES # (AUTO) 3.3 X 10^3 (1.0-4.0); LYMPHOCYTES % (AUTO) 35 % (12-44); MEAN CORPUSCULAR HEMOGLOBIN 31 pg (25-34); MEAN CORPUSCULAR HGB CONC 34 g/dL (32-36); MEAN CORPUSCULAR VOLUME 91 fL (80-99); MEAN PLATELET VOLUME 9.2 fL (9.0-12.2); MONOCYTES # (AUTO) 0.9 X 10^3 (0.0-1.0); MONOCYTES % (AUTO) 10 % (0-12); NEUTROPHILS # (AUTO) 4.6 X 10^3 (1.8-7.8); NEUTROPHILS % (AUTO) 48 % (42-75); PLATELET COUNT 377 10^3/uL (130-400); WHITE BLOOD COUNT 9.4 10^3/uL (4.3-11.0)
== END ==
LOC: ONC 15:03
PROVIDERS: ATTEND Internal Medicine Hematology & Oncology
DX: N60.89 Other benign mammary dysplasias of unspecified breast (principal); G62.9 Polyneuropathy, unspecified; M54.2 Cervicalgia; D64.9 Anemia, unspecified; Z90.710 Acquired absence of both cervix and uterus; Z92.3 Personal history of irradiation; Z80.3 Family history of malignant neoplasm of breast; Z98.82 Breast implant status
CPT/HCPCS: 36415; 80053; 85025

== ENCOUNTER 2021-08-02 08:16 | Day surgery (SDC) | payer OTHER ==
[~2021-08-02] VITALS: Ht 165 cm; Wt 74.8 kg
[2021-08-02 08:30] VITALS: BP 124/79
[2021-08-02] MEDS ORDERED: LACTATED RINGERS 1,000 ML IV STA (08:39)
[2021-08-02] MEDS ORDERED: ONDANSETRON 4 MG/2 ML (SDV) Z0FRAN IVP ONE (08:45)
[2021-08-02] MEDS ORDERED: FAMOTIDINE 20MG/2ML IV (PEPCID) IVP ONE (08:45)
[2021-08-02] MEDS ORDERED: HURRICAINE EXT TUBE (BENZOCAINE) XX PRN (08:45)
[2021-08-02] MEDS ORDERED: SCOPOLAMINE 1.5 MG (TRANSDERM-SCOP) PATCH TD ONE (08:45)
--- NOTE | 2021-08-02 09:00 | Progress Note-Pre Operative ---
Pre-Operative Progress Note H&P Reviewed The H&P was reviewed, patient examined and no changes noted. Date Seen by Provider: August 02, 2021 Time Seen by Provider: 09:00 Date H&P Reviewed: August 02, 2021 Time H&P Reviewed: 09:00 Pre-Operative Diagnosis: abd pain, change in bowel habits JASMIN HERNANDEZ DO August 02, 2021 09:00
[2021-08-02] MEDS ORDERED: PROPOFOL INJECTION 50 ML IV ONE (09:41)
[2021-08-02] MEDS ORDERED: MIDAZOLAM 2 MG/2 ML (VERSED) VIAL ONE (09:41)
[2021-08-02 10:15] VITALS: BP 177/81
--- NOTE | 2021-08-02 10:18 | Progress Note-Post Operative ---
Post-Operative Progess Note Surgeon (s)/Bookkeeping Assistant (s) Surgeon JASMIN HERNANDEZ DO Bookkeeping Assistant: na Pre-Operative Diagnosis abd pain, change in bowel habits Post-Operative Diagnosis hiatal hernia, normal colon Procedure & Operative Findings Date of Procedure 08/02/21 Procedure Performed/Findings egd c biopsies, colonoscopy Anesthesia Type per edge gluer Estimated Blood Loss Estimated blood loss (mL): none Specimens/Packing Specimens Removed antrum, ge JASMIN HERNANDEZ DO August 02, 2021 10:18
--- NOTE | 2021-08-02 10:19 | Discharge Inst-Simple/Standard ---
Discharge Inst-Standard Patient Instructions/Follow Up Plan of Care/Instructions/FU: 2 weeks Uriel Activity as Tolerated: Yes Discharge Diet: Regular Diet JASMIN HERNANDEZ DO August 02, 2021 10:19
[2021-08-02 10:20] VITALS: BP 129/69
[2021-08-02 10:25] VITALS: BP 124/70
[2021-08-02 10:40] VITALS: BP 122/72
--- NOTE | 2021-08-02 11:27 | Anesthesia-General Post-Op ---
MAC Patient Condition Mental Status/LOC: Same as Preop Cardiovascular: Satisfactory Nausea/Vomiting: Absent Respiratory: Satisfactory Pain: Controlled Complications: Absent Post Op Complications Complications None Follow Up Care/Instructions Patient Instructions None needed. Anesthesiology Discharge Order Discharge Order Patient is doing well, no complaints, stable vital signs, no apparent adverse anesthesia problems. No complications reported per nursing. ROCKY CISNEROS CRNA August 02, 2021 11:27
--- NOTE | 2021-08-02 14:40 | OPERATIVE REPORT ---
DATE OF SERVICE: 08/02/2021 PREOPERATIVE DIAGNOSES: Abdominal pain, change in bowel habits. POSTOPERATIVE DIAGNOSES: Hiatal hernia, normal colon. PROCEDURE: EGD with biopsies, colonoscopy. SURGEON: Jasmin Trevino DO ANESTHESIA: Per PRINCIPAL MECHANICAL ENGINEER. ESTIMATED BLOOD LOSS: None. COMPLICATIONS: None. SPECIMENS: Antrum, GE junction. INDICATIONS: The patient is a 46-year-old female with some abdominal discomfort, abdominal pain and had change in bowel habits. She understands risks and benefits of procedure and wishes to proceed. Consent was signed in the chart. DESCRIPTION OF PROCEDURE: The patient was taken to the endoscopy suite, placed in left lateral recumbent position. Timeout was performed. Scope was inserted in mouth, down the esophagus, stomach and into the duodenum without difficulty. There were no polyps, masses or ulcerations within the duodenum. Scope was slowly retracted back into the stomach where it was further insufflated. No polyps, masses or ulcerations within the stomach; in the antrum, biopsy of the antrum was obtained. Scope was retroflexed. Has small hiatal hernia, no other pathology noted. Scope was returned to its normal position, slowly withdrawn to distal esophagus, no significant changes. No polyps, masses or ulcerations. Biopsy of the GE junction was obtained. Scope was slowly retracted back until completely removed. Digital rectal exam was performed. No palpable polyps, masses or ulcerations. Scope was inserted in the rectum and advanced all the way to cecum with minimal difficulty. Lots of irrigation and suction needed for visualization. Scope was then slowly retracted back. No polyps, masses or ulcerations in the cecum, ascending, transverse, descending and sigmoid colon. Once in the rectum, scope was retroflexed noting no other pathology. Scope was returned to its normal position, slowly withdrawn until completely removed. The patient tolerated the procedure well without any complications, taken to recovery room in stable condition. RECOMMENDATIONS: The patient will need repeat colonoscopy in 10 years unless family history of colon cancer, which would then be 5 years, any issues before that be seen at that time. The patient will follow up on pathology. If continues to have abdominal pain, further recommendations pending biopsy results. Job ID: [id number] DocumentID: [id number] Dictated Date: 08/02/2021 10:22:05 Case Liner Date: 08/02/2021 14:39:36 Dictated By: JASMIN TREVINO DO
== END 2021-08-02 10:50 | disposition home or self-care (01) ==
LOC: ENDO 08:16
PROVIDERS: ATTEND Surgery
DX: K44.9 Diaphragmatic hernia without obstruction or gangrene (principal); R19.5 Other fecal abnormalities; K29.50 Unspecified chronic gastritis without bleeding; Z87.891 Personal history of nicotine dependence; Z85.3 Personal history of malignant neoplasm of breast; L98.9 Disorder of the skin and subcutaneous tissue, unspecified; Z85.72 Personal history of non-Hodgkin lymphomas

== ENCOUNTER → 2021-08-25 | Outpatient (CLI) | payer OTHER ==
[~2021-08-25] MED LIST changes: +CATHETER FLUSH 10 ML SYR IVP PRN
--- NOTE | 2021-08-25 14:42 | Diagnostic Imaging Report ---
INDICATION: Epigastric pain. TECHNIQUE: Patient was administered 5.5 mCi technetium-99m Choletec intravenously, and imaging over the abdomen was performed. After 45 minutes, patient ingested Ensure, and gallbladder ejection fraction was calculated. FINDINGS: There is homogeneous uptake of activity by the liver with prompt excretion of activity into the gallbladder and common duct. There is passage of activity into the small bowel. There is some uptake noted within the stomach. Gallbladder ejection fraction is slightly low at 30%. Normal values are 35% or greater. IMPRESSION: 1. Patent cystic duct and common bile duct. 2. Slightly low gallbladder ejection fraction of 30%. 3. Mild gastric bile reflux. Dictated by: Dictated on workstation # [id number]
== END ==
LOC: CARD 12:00
PROVIDERS: ATTEND Surgery
DX: K21.9 Gastro-esophageal reflux disease without esophagitis (principal)
CPT/HCPCS: 78227; A9537

== ENCOUNTER 2021-09-08 05:30 | Outpatient (CLI) | payer OTHER ==
[~2021-09-08] VITALS: Ht 162.5 cm; Wt 72.6 kg
[~2021-09-08 05:30] MED LIST changes: -CATHETER FLUSH 10 ML SYR IVP PRN
[2021-09-13] MEDS ORDERED: PANT40TA2 PO (12:09)
== END 2021-09-13 12:10 | disposition home or self-care (01) ==
LOC: PREOP 05:30
PROVIDERS: ATTEND Surgery
DX: Z01.818 Encounter for other preprocedural examination (principal)

== ENCOUNTER 2021-09-15 08:06 | Day surgery (SDC) | payer OTHER ==
[~2021-09-15] VITALS: Ht 162.5 cm; Wt 72.6 kg
[2021-09-15] VITALS (11 sets, daily range): BP systolic 103–148; BP diastolic 77–86
[~2021-09-15 08:06] MED LIST changes: +PANT40TA2 PO
[2021-09-15] MEDS ORDERED: LIDOCAINE/EPI 2% 1:100,00 (XYLOCAINE) 20 ML VIAL ONE (08:17)
[2021-09-15] MEDS ORDERED: CLINDAMYCIN 600 MG/50 ML IVPB 50 ML IV ONE ×2 (08:30→08:49)
[2021-09-15] MEDS: LACTATED RINGERS 1,000 ML IV PRN ×2 (08:40→10:15)
[2021-09-15] MEDS ORDERED: FAMOTIDINE 20MG/2ML IV (PEPCID) ONE (08:44)
[2021-09-15] MEDS ORDERED: fentaNYL INJ 100 MCG/2 ML AMP ONE (08:44)
[2021-09-15] MEDS ORDERED: SCOPOLAMINE 1.5 MG (TRANSDERM-SCOP) PATCH ONE (08:44)
[2021-09-15] MEDS ORDERED: LIDOCAINE PF 2% 5 ML (XYLOCAINE) VIAL ONE (08:44)
[2021-09-15] MEDS ORDERED: proPOfol 200 MG/20 ML (DIPRIVAN) VIAL IV ONE (08:44)
[2021-09-15] MEDS ORDERED: ROCURONIUM 50 MG/5 ML (ZEMURON) VIAL IV ONE (08:44)
[2021-09-15] MEDS ORDERED: ONDANSETRON 4 MG/2 ML (SDV) Z0FRAN ONE ×2 (08:44→08:48)
[2021-09-15] MEDS ORDERED: MIDAZOLAM 2 MG/2 ML (VERSED) VIAL ONE (08:44)
[2021-09-15] MEDS ORDERED: SEVOFLURANE (ULTANE) 15 ML INHAL SOLN ONE ×2 (08:48→10:50)
[2021-09-15] MEDS ORDERED: SCOPOLAMINE 1.5 MG (TRANSDERM-SCOP) PATCH TD ONE (09:00)
[2021-09-15] MEDS ORDERED: FAMOTIDINE 20MG/2ML IV (PEPCID) IVP ONE (09:00)
[2021-09-15] MEDS ORDERED: ONDANSETRON 4 MG/2 ML (SDV) Z0FRAN IVP ONE (09:00)
--- NOTE | 2021-09-15 09:32 | Progress Note-Pre Operative ---
Pre-Operative Progress Note H&P Reviewed The H&P was reviewed, patient examined and no changes noted. Date Seen by Provider: Sep 15, 2021 Time Seen by Provider: : Date H&P Reviewed: Sep 15, 2021 Time H&P Reviewed: 09:31 Pre-Operative Diagnosis: Biliary Dyskinesia JASMIN HERNANDEZ DO Sep 15, 2021 09:32
[2021-09-15] MEDS ORDERED: IOHEXOL 300 MG/ML 30 ML (OMNIPAQUE 300) VIAL INJ ONE (10:15)
[2021-09-15] MEDS ORDERED: GLYCOPYRROLATE 0.2 MG/ML (ROBINUL) 2 ML VIAL ONE (10:34)
[2021-09-15] MEDS ORDERED: NEOSTIGMINE (BLOXIVERZ ) 1 MG/1ML 10 ML VIAL ONE (10:34)
[2021-09-15] MEDS ORDERED: DOCU-143 PO (10:51)
[2021-09-15] MEDS ORDERED: ACHD5005 PO (10:51)
--- NOTE | 2021-09-15 10:52 | Discharge Inst-Simple/Standard ---
Discharge Inst-Standard Discharge Medications New, Converted or Re-Newed RX: Transmitted to Pharmacy Patient Instructions/Follow Up Plan of Care/Instructions/FU: 2 weeks Uriel Activity as Tolerated: No Discharge Diet: Regular Diet Other Inst to Patient Follow up Appt: Make appointment for 2 weeks. Instructions: No lifting greater than 10 pounds. No strenuous activity. May shower in 24 hours, no tub bath or soaking. Use incentive spirometer at home as directed. No Smoking Skin/Wound Care: You have special glue over incision, it will fall off on it's own. Symptoms to Report: Appetite Changes, Extremity Discoloration, Numbness/Tingling, Swelling Increased, Bleeding Excessive, Eyesight Changes, Pain Increased, Urine Color Change, Constipation(Persistent), Fever over 101 degree F, Pain/Pressure in chest, Urinating Difficulty, Cough Up/Vomit Blood, Heart Beat Irreg/Pounding, Pain/Pressure in jaw, Vaginal Bleeding Increase, Cramps in feet or legs, Lightheadedness, Pain/Pressure in shoulder, Diarrhea(Persistent), Memory Changes Suddenly, Questions/Concerns, Weight gain consecutive days, Dizziness/Fainting, Nausea/Vomiting, Shortness of Breath, Weight gain over 2 pounds. If eyes or skin turn yellow notify physician. If questions or concerns contact your physician Or seek help at emergency department. JASMIN HERNANDEZ DO Sep 15, 2021 10:52
--- NOTE | 2021-09-15 10:55 | Progress Note-Post Operative ---
Post-Operative Progess Note Surgeon (s)/Quality Improvement Consultant (s) Surgeon JASMIN HERNANDEZ DO Quality Improvement Consultant: na Pre-Operative Diagnosis Biliary Dyskinesia Post-Operative Diagnosis same Procedure & Operative Findings Date of Procedure 09/15/21 Procedure Performed/Findings PROCEDURE: Laparoscopic cholecystectomy with intraoperative cholangiogram. COMPLICATIONS: None. PROCEDURE: The patient was taken to the operating suite and was prepped and draped in sterile fashion. A surgical pause was performed. Just superior to the umbilicus, a 12 mm incision was made. Dissection was taken down to the fascia, which was then scored and grasped with a Desirae and the abdomen was then entered. A 0 Vicryl suture was placed in a [id number] fashion and a Stevenson trocar was placed and secured. Pneumoperitoneum was achieved. A 5mm trochar place in the subxyphoid and 2 in the right upper quadrant. The gallbladder was then grasped and elevated. Adhesions to the gallbladder and liver present and taken down with blunt and cautery dissection. The cystic duct, and cystic artery were then dissected out. Clip was placed on the distal portion of the cystic duct which was then partially transected. An arrow catheter was inserted into the duct. The cholangiogram was then performed. No filing defects and contrast made its way into the duodenum. Catheter removed. Clips were placed on proximal portion of the cystic duct and then the duct was then transected. Clips were placed along the proximal and distal portion of the cystic artery which was then transected. Hook cautery was used to dissect the gallbladder from the gallbladder fossa achieving hemostasis. The gallbladder was placed in an Endobag and removed through the 12 mm trocar site. The abdomen was then reinspected. Copious amounts of irrigation were used to irrigate the abdomen and there were no signs of active bleeding. Hemostasis had been achieved. The 12 mm fascial defect was then closed with 0 Vicryl suture that had been placed in a [id number] fashion. The abdomen was then desufflated, the trocars were removed. The abdomen was then washed and dried. The skin was then closed using 4-0 Monocryl in a subcuticular fashion. The abdomen was washed and dried and Skin Affix was place over incisions. Patient tolerated the procedure well without any complications and was taken to the recovery room in stable condition. Anesthesia Type general Estimated Blood Loss Estimated blood loss (mL): minimal Specimens/Packing Specimens Removed gallbladder JASMIN HERNANDEZ DO Sep 15, 2021 10:55
[2021-09-15] MEDS ORDERED: fentaNYL INJ 100 MCG/2 ML AMP IVP ONE (11:30)
[2021-09-15] MEDS ORDERED: HYDROcodone/APAP 5 MG/325 MG (LORTAB) TAB ONE (12:14)
[2021-09-15] MEDS ORDERED: HYDROcodone/APAP 5 MG/325 MG (LORTAB) TAB PO ONE (12:15)
--- NOTE | 2021-09-15 12:29 | Anesthesia-General Post-Op ---
General Patient Condition Mental Status/LOC: Same as Preop Cardiovascular: Satisfactory Nausea/Vomiting: Absent Respiratory: Satisfactory Pain: Controlled Complications: Absent Post Op Complications Complications None Follow Up Care/Instructions Patient Instructions None needed. Anesthesia/Patient Condition Patient Condition Patient is doing well, no complaints, stable vital signs, no apparent adverse anesthesia problems. No complications reported per nursing. MYRON GEORGES CRNA Sep 15, 2021 12:29
--- NOTE | 2021-09-15 12:56 | Diagnostic Imaging Report ---
INDICATION: Fluoroscopy for intraoperative cholangiogram. Fluoroscopy was provided during intraoperative cholangiogram. 7 seconds of fluoroscopic time was utilized. 25 images were obtained demonstrating contrast being injected via the cystic duct remnant. Intrahepatic and extrahepatic bile ducts are normal in caliber. No filling defects are seen. Contrast flows into the duodenum. IMPRESSION: Fluoroscopy during intraoperative cholangiogram. Dictated by: Dictated on workstation # [id number]
== END 2021-09-15 13:30 | disposition home or self-care (01) ==
LOC: SDC 08:06
PROVIDERS: ATTEND Surgery
DX: K82.8 Other specified diseases of gallbladder (principal); K81.1 Chronic cholecystitis; Z88.1 Allergy status to other antibiotic agents; Z88.5 Allergy status to narcotic agent; Z85.3 Personal history of malignant neoplasm of breast; Z87.891 Personal history of nicotine dependence; Z79.899 Other long term (current) drug therapy
CPT/HCPCS: 76000; 87081; 88304

== ENCOUNTER → 2022-07-21 | Outpatient (CLI) | payer OTHER ==
[~2022-07-21] MED LIST changes: +ACHD5005 PO; +DOCU-143 PO; +PARO-134 PO; -PARO10TA81 PO
--- NOTE | 2022-07-21 11:57 | Diagnostic Imaging Report ---
INDICATION: Bilateral 3-D screening mammograms COMPARISON: 07/20/2021 and 07/16/2020 There is mild/moderate breast parenchymal density bilaterally. Biopsy markers again seen in the central left breast with focal region of increased density in the upper outer quadrant left breast. No other asymmetry or suspicious finding is detected. IMPRESSION: Category 2, benign findings. Continued physical examination and annual mammographic followup are recommended. ACR BI-RADS Category 2: Benign findings. Result letter will be mailed to the patient. Note: At least 10% of breast cancer is not imaged by mammography. Dictated by: Dictated on workstation # [id number]
== END ==
LOC: RAD 09:30
PROVIDERS: ATTEND Internal Medicine Hematology & Oncology
DX: Z12.31 Encounter for screening mammogram for malignant neoplasm of breast (principal)
CPT/HCPCS: 77063; 77067

== ENCOUNTER → 2022-08-02 | Outpatient (CLI) | payer OTHER ==
[2022-08-02 09:26] LABS: BASOPHILS # (AUTO) 0.1 10^3/uL (0.0-0.1); BASOPHILS % (AUTO) 1 % (0-10); EOSINOPHILS # (AUTO) 0.6 10^3/uL (0.0-0.3); EOSINOPHILS % (AUTO) 7 % (0-10); HEMATOCRIT 41 % (35-52); HEMOGLOBIN 13.9 g/dL (11.5-16.0); LYMPHOCYTES # (AUTO) 2.1 10^3/uL (1.0-4.0); LYMPHOCYTES % (AUTO) 23 % (12-44); MEAN CORPUSCULAR HEMOGLOBIN 31 pg (25-34); MEAN CORPUSCULAR HGB CONC 34 g/dL (32-36); MEAN CORPUSCULAR VOLUME 91 fL (80-99); MONOCYTES # (AUTO) 0.8 10^3/uL (0.0-1.0); MONOCYTES % (AUTO) 9 % (0-12); NEUTROPHILS # (AUTO) 5.5 10^3/uL (1.8-7.8); NEUTROPHILS % (AUTO) 60 % (42-75); PLATELET COUNT 337 10^3/uL (130-400); WHITE BLOOD COUNT 9.1 10^3/uL (4.3-11.0)
[2022-08-02 09:56] LABS: ALBUMIN 4.4 GM/DL (3.2-4.5); BILIRUBIN,TOTAL 0.5 MG/DL (0.1-1.0); CALCIUM 9.5 MG/DL (8.5-10.1); CREATININE SERUM 0.94 MG/DL (0.60-1.30); POTASSIUM 4.1 MMOL/L (3.6-5.0); TOTAL PROTEIN 7.6 GM/DL (6.4-8.2)
== END ==
LOC: ONC 09:04
PROVIDERS: ATTEND Internal Medicine Hematology & Oncology
DX: C50.912 Malignant neoplasm of unspecified site of left female breast (principal); Z80.3 Family history of malignant neoplasm of breast; G89.29 Other chronic pain; M54.2 Cervicalgia; Z92.3 Personal history of irradiation; Z98.890 Other specified postprocedural states; Z90.710 Acquired absence of both cervix and uterus; Z98.1 Arthrodesis status; Z85.72 Personal history of non-Hodgkin lymphomas
CPT/HCPCS: 80053; 85025

== ENCOUNTER → 2022-09-29 | Outpatient (CLI) | payer OTHER ==
--- NOTE | 2022-09-29 16:50 | Diagnostic Imaging Report ---
EXAMINATION: MRI lumbar spine without contrast. TECHNIQUE: Multiplanar, multisequence MRI of the lumbar spine was performed without contrast. HISTORY: 12/13/2018. COMPARISON: None available. FINDINGS: The alignment of the lumbar spine is normal. Vertebral bodies demonstrate normal marrow signal intensity on all sequences. There is no compression fracture. The conus medullaris terminates at the level of L1-L2. The distal spinal cord signal intensity is normal. Mild disc desiccation at L4-L5 and L5-S1. Limited views of the abdomen and pelvis show no soft tissue abnormality. The aorta is normal. L1-L2: Mild facet and ligamentum flavum hypertrophy. No central canal stenosis. No neuroforaminal stenosis. L2-L3: Mild facet and ligamentum flavum hypertrophy. No central canal or neuroforaminal stenosis. L3-L4: Mild facet and ligamentum flavum hypertrophy. No central canal stenosis. No significant neuroforaminal stenosis. L4-L5: Small symmetric disc bulge. Ligamentum flavum and facet hypertrophy. Mild to moderate central canal stenosis. Mild bilateral neuroforaminal stenosis. L5-S1: Mild facet hypertrophy. No central canal stenosis. Mild bilateral neuroforaminal stenosis. IMPRESSION: 1. Degenerative changes of the lumbar spine with up to mild to moderate central canal stenosis at L4-L5. 2. Mild foraminal stenosis at L4-L5 and L5-S1. Dictated by: Dictated on workstation # [id number]
== END ==
LOC: RAD 14:12
PROVIDERS: ATTEND Chiropractor
DX: M47.816 Spondylosis without myelopathy or radiculopathy, lumbar region (principal); M48.061 Spinal stenosis, lumbar region without neurogenic claudication; M48.07 Spinal stenosis, lumbosacral region
CPT/HCPCS: 72148